=== PATIENT | male | born 1945 | race African-American/Black ===

== ENCOUNTER 2018-07-25 01:17 | Inpatient (IN) | payer MEDICARE ==
[2018-07-25] MEDS ORDERED: Morphine 4 MG/ML VIAL (1 ml) 4 MG/ML VIAL IV ONE (01:33)
--- NOTE | 2018-07-25 01:40 | ED ---
Lower Extremity - HPI Summary HPI Summary: The patient is a 73 y/o M presenting to [facility] arriving by ambulance with a chief complaint of immediate onset pain s/p fall from standing height tonight, causing him to fall on to his right side with pain in the right hip. After falling, he was unable to get up without EMS. The pain is currently rated 6/10 in severity. He denies abd pain, back pain, neck pain, hitting head, and LOC. Hx of COPD. Lives at home with sister and nephew. His nephew was the one who called EMS. - History of Current Complaint Stated Complaint: "R HIP PAIN" PER EMS Time Seen by Provider: 07/25/18 01:26 Hx Obtained From: Patient Mechanism Of Injury: Fall From A Standing Position Onset of Pain: Immediate Onset/Duration: Minutes Severity Initially: Severe Severity Currently: Severe Pain Intensity: 6 Pain Scale Used: 0-10 Numeric Timing: Constant, Lasting Minutes Location: Is Discrete @ - right hip Character Of Pain: Sharp Associated Signs And Symptoms: Positive: Other - NEGATIVE: abd pain, back pain, neck pain, head injury, LOC Aggravating Factor(s): Standing, Ambulation Alleviating Factor(s): Rest Able to Bear Weight: No - Allergies/Home Medications Allergies/Adverse Reactions: Allergies Allergy/AdvReac Type Severity Reaction Status Date / Time No Known Allergies Allergy Verified 07/25/18 04:44 Home Medications: Home Medications Amlodipine Besylate [Norvasc] 10 mg PO DAILY 07/25/18 [History Confirmed ] PMH/Surg Hx/FS Hx/Imm Hx Endocrine/Hematology History: Denies: Hx Anticoagulant Therapy, Hx Blood Disorders, Hx Blood Transfusions, Hx Bone Marrow Disease, Hx Diabetes, Hx Systemic Lupus Erythematosus, Hx Sickle Cell Disease, Hx Thyroid Disease, Hx Anemia, Hx Unexplained Bleeding, Other Endocrine/Hematological Disorders Cardiovascular History: Reports: Hx Hypertension Denies: Hx Congestive Heart Failure, Hx Pacemaker/ICD, Other Cardiovascular Problems/Disorders Respiratory History: Reports: Hx Chronic Obstructive Pulmonary Disease (COPD), Hx Pneumonia, Other Respiratory Problems/Disorders - lung ca Denies: Hx Asthma, Hx Cystic Fibrosis, Hx Lung Cancer, Hx Pleural Effusion, Hx Pulmonary Edema, Hx Pulmonary Embolism, Hx Seasonal Allergies, Hx Sleep Apnea GI History: Denies: Other GI Disorders History: Denies: Hx Dialysis, Hx Renal Disease Musculoskeletal History: Denies: Hx Rheumatoid Arthritis, Other Musculoskeletal History Sensory History: Reports: Hx Contacts or Glasses Denies: Hx Cataracts, Hx Eye Injury, Hx Eye Prosthesis, Hx Glaucoma, Hx Macular Degeneration, Hx Vision Problem, Hx Deafness, Hx Hearing Aid, Hx Hearing Problem, Other Sensory Impairments Opthamlomology History: Reports: Hx Contacts or Glasses Denies: Hx Cataracts, Hx Eye Injury, Hx Eye Prosthesis, Hx Glaucoma, Hx Macular Degeneration, Hx Vision Problem, Other Sensory Impairments Neurological History: Denies: Hx Dementia, Hx Developmental Delay, Hx Headaches, Hx Migraine, Hx Nerve Disease, Hx Seizures, Hx Spinal Cord Injury, Hx Transient Ischemic Attacks (TIA), Other Neuro Impairments/Disorders Psychiatric History: Reports: Hx Post Traumatic Stress Disorder - 1969 episode of PTSD, nothing since Denies: Hx Anxiety, Hx Attention Deficit Hyperactivity Disorder, Hx Eating Disorder, Hx Depression, Hx Panic Disorder, Hx Inpatient Treatment, Hx Community Mental Health Tx, Hx Schizophrenia, Hx Bipolar Disorder, Hx Suicide Attempt, Hx of Violent Episodes Against Others, Hx Substance Abuse, Other Psychiatric Issues/Disorders - Cancer History Cancer Type, Location and Year: lung ca (current) AND COPD Hx Chemotherapy: Yes - about a year ago,radiation in past - Surgical History Surgery Procedure, Year, and Place: POWER PORT Hx Anesthesia Reactions: No Infectious Disease History: Denies: Hx Clostridium Difficile, Hx Hepatitis, Hx Human Immunodeficiency Virus (HIV), Hx Shingles, Hx Tuberculosis - Family History Known Family History: Positive: Hypertension - Social History Alcohol Use: Occasionally Alcohol Amount: 2 drinks/day Hx Substance Use: No Substance Use Type: Reports: None Hx Tobacco Use: Yes Smoking Status (MU): Former Smoker Type: Cigarettes Amount Used/How Often: 1/2 PACK A DAY Length of Time of Smoking/Using Tobacco: 44 years Have You Smoked in the Last Year: Yes Review of Systems Negative: Abdominal Pain Positive: Other - POSITIVE: pain in right hip s/p fall; NEGATIVE: back pain, neck pain Neurological: Other - NEGATIVE: hit head, LOC All Other Systems Reviewed And Are Negative: Yes Physical Exam - Summary Physical Exam Summary: Appearance: Well-appearing, Well-nourished, lying in bed comfortably Skin: Warm, dry, no obvious rash Eyes: sclera anicteric, no conjunctival pallor ENT: mucous membranes moist, pharynx appears normal Neck: Supple, nontender Respiratory: Clear to auscultation, no signs of respiratory distress Cardiovascular: Normal S1, S2. No murmurs. Normal distal pulses in tibial and radial bilaterally. Abdomen: Soft, nontender, normal active bowel sounds present Musculoskeletal: Rarked pain with internal or external rotation of the right hip , Strength/ROM Intact in all other joints Neurological: A&Ox3 but somewhat confused, speech is fluent and appropriate but hard forming thoughts, awake and alert, mentation is normal Psychiatric: affect is normal, does not appear anxious or depressed Triage Information Reviewed: Yes Vital Signs Reviewed: Yes Diagnostics - Laboratory Result Diagrams: 07/25/18 01:41 07/25/18 01:41 Lab Statement: Any lab studies that have been ordered have been reviewed, and results considered in the medical decision making process. - Radiology R Hip/Pelvis XR Radiology Interpretation Completed By: Radiologist Summary of Radiographic Findings: Positive for displaced femoral neck fracture. ED physician has reviewed this radiology report. R Femur XR Radiology Interpretation Completed By: Radiologist Summary of Radiographic Findings: No further fracture of femur compared to R Hip XR. ED physician has reviewed this radiology report. CXR Radiology Interpretation Completed By: Radiologist Summary of Radiographic Findings: No acute process. ED physician has reviewed this report. - EKG 0205 Cardiac Rate: NL - 75 BPM EKG Rhythm: Sinus Rhythm Summary of EKG Findings: NSR at 75 BPM, P waves, QRS complex, and T waves are within normal limits, T waves and intervals are normal, no ischemic changes. This is a normal EKG. Re-Evaluation - Re-Evaluation First Eval Re-Evaluation Time: 04:20 Comment: I spoke with the patient concerning admission for surgery. Lower Extremity Course/Dx - Course Course Of Treatment: The patient is a 73 y/o M presenting to [facility] arriving by ambulance with a chief complaint of immediate onset pain s/p fall from standing height tonight, causing him to fall on to his right side with pain in the right hip. Upon physical exam, the patient exhibits marked pain with internal or external rotation of the right hip, somewhat confused, speech is fluent but hard forming thoughts. In the ED course, the patient was administered Morphine. Blood work reveals MCH of 26, RDW of 16, MPV of 7.3, glucose of 112, and magnesium of 1.7 without any other acute abnormality. UA is normal. EKG is normal. CXR reveals no acute process. R Hip/Pelvis XR reveals displaced femoral neck fracture. R Femur fracture reveals no additional fracture of femur compared to hip XR. He is diagnosed with displaced fracture of right femoral neck. At 0308, I spoke with Dr. Mohan, orthopedics, who suggests admission and follow up with the patient in the morning concerning surgery. At 0315, I spoke with Dr. Ingram, hospitalist, who accepts the patient for admission. The patient agrees with plan and understands the need for admission at this time. - Diagnoses Provider Diagnoses: Displaced fracture of right femoral neck - Physician Notifications Discussed Care Of Patient With: Ollie Stockton - orthopedics Time Discussed With Above Provider: 03:08 Instructed by Provider To: Other - I spoke with Dr. Mohan who suggests admission and follow up with the patient in the morning concerning surgery. At 0315, I spoke with Dr. Ingram, hospitalist, who accepts the patient for admission. Discharge - Sign-Out/Discharge Documenting (check all that apply): Patient Departure - Patient is accepted for admission by Dr. Ingram. Patient Received Moderate/Deep Sedation with Procedure: No - Discharge Plan Condition: Stable Disposition: ADMITTED TO [facility] - Billing Disposition and Condition Condition: STABLE Disposition: Admitted to [facility] - Attestation Statements Document Initiated by Cory: Yes Documenting Scribe: Estephanie Draper Provider For Whom oCry is Documenting (Include Credential): Dr. Simone Plascencia MD Scribe Attestation: Estephanie Cleveland scribed for Dr. Simone Plascencia MD on 07/26/18 at 0450. Scribe Documentation Reviewed: Yes Provider Attestation: The documentation as recorded by the Estephanie carmichael accurately reflects the service I personally performed and the decisions made by me, Dr. Simone Plascencia MD Status of Scribjennifer Document: Viewed
[2018-07-25 01:48] LABS: ABS Eosinophils 0.1 10^3/ul (0-0.6); ABS Lymphocytes 1.5 10^3/ul (1.0-4.8); ABS Monocytes 0.6 10^3/ul (0-0.8); ABS Neutrophils 4.7 10^3/ul (1.5-7.7); Eosinophil % 1.8 %; Hematocrit 43 % (42-52); Lymphocyte % 21.6 %; Mean Corpuscular HGB Conc 32 g/dL (31-36); Mean Corpuscular Hemoglobin 26 pg (27-31); Mean Corpuscular Volume 82 fL (80-94); Mean Platelet Volume 7.3 fL (7.4-10.4); Nucleated Red Blood Cells % 0.1; Platelet Count 259 10^3/uL (150-450); Red Blood Count 5.31 10^6 /uL (4.18-5.48); Red Cell Distribution Width 16 % (10.5-15)
[2018-07-25 02:00] LABS: Activated Partial Thrombo Time 29.2 seconds (26.0-38.0); INR 0.91 (0.82-1.09)
[2018-07-25 02:07] LABS: Albumin 4.1 g/dL (3.2-5.2); Albumin/Globulin Ratio 1.5 (1-3); Calcium 9.1 mg/dL (8.6-10.3); EGFR African American 99.1 (>60); EGFR Non-African American 81.9 (>60); Globulin 2.8 g/dL (2-4); Potassium 3.8 mmol/L (3.5-5.0); Total Bilirubin 0.3 mg/dL (0.2-1.0); Total Protein 6.9 g/dL (6.4-8.9)
[2018-07-25] MEDS ORDERED: Magnesium Hydroxide LIQ* 30 ML UDC PO PRN (04:13)
[2018-07-25] MEDS ORDERED: Al Hydrox/Mg Hydrox/Simet LIQ* 30 ML UDC PO PRN (04:15)
[2018-07-25] MEDS ORDERED: Ondansetron INJ* 2 MG/ML VIAL IV PRN (04:15)
[2018-07-25] MEDS: Morphine INJ* 2 MG/ML 1 ML SYRINGE (TWO MG - NEW SYRINGE VERSION) IV PRN ×6 (04:18→18:57)
[2018-07-25 04:32] LABS: Magnesium 1.7 mg/dL (1.9-2.7)
[2018-07-25 04:45] LABS: Urine Appearance Clear; Urine Bilirubin Negative (Negative); Urine Blood Negative (Negative); Urine Color Straw; Urine Glucose Negative (Negative); Urine Ketones Negative (Negative); Urine Nitrite Negative (Negative); Urine Protein Negative (Negative); Urine Specific Gravity 1.001 (1.010-1.030); Urine Urobilinogen Negative (Negative)
[2018-07-25] MEDS: NS 0.9% 1000 ML** 1,000 ML IV SCH ×2 (06:12→19:48)
[2018-07-25] MEDS: Heparin VIAL(*) 5000 UNITS/ML VIAL (FIVE THOUSAND) SUBCUT SCH ×3 (06:28→21:52)
--- NOTE | 2018-07-25 06:39 | PN ---
Progress Note - Progress Note Date of Service: 07/25/18 Note: Pt seen and examined. Full note dictated on hospital system. Pt oriented to self and place but not year. Confused. Unsure if baseline. No family around. Pt with R hip basicervical femoral neck fracture. Will plan for IMN of R hip when patient medically optimized. NPO for now.
[2018-07-25] MEDS: Polyethylene Glycol 3350* 17 GM PACKET PO SCH ×2 (08:25→09:50)
[2018-07-25] MEDS: Docusate CAP* 100 MG PO SCH ×3 (08:25→21:52)
[2018-07-25] MEDS: Pantoprazole TAB * 40 MG TAB PO SCH ×2 (08:25→09:50)
--- NOTE | 2018-07-25 08:56 | HP ---
CC: Sandy Lockwood MD HISTORY AND PHYSICAL: DATE OF ADMISSION: 07/25/18 TIME OF EVALUATION: 0400. PRIMARY CARE PHYSICIAN: Sandy Lockwood MD CHIEF COMPLAINT: Fall. HISTORY OF PRESENT ILLNESS: This is a 73-year-old male with past medical history of COPD, on 2L who states he does not know what happened, his nephew was there with him, he does not know what happened either. The next scene was he was on the floor with right hip pain. The patient denies any history of cardiac issues. He does have COPD, on 2L. He states he did not have any issues with his respiratory status. He has not needed prednisone. He had a good winter. He has not had any issues with pneumonia. He is able to take up flight of stairs without developing any chest pain or shortness of breath. The patient denies any recent illness, denies any chest pain or shortness of breath , just having a lot of significant pain in the right hip. Otherwise, remaining review of systems is negative. In the emergency room, the patient had labs and imaging and found to have a right femoral neck fracture. He was given 4 mg of morphine and referred to the hospitalist service for further evaluation. PAST MEDICAL HISTORY: 1. COPD, on 2L. 2. Small cell lung carcinoma. Per patient, he is in remission. 3. History of alcohol use. 4. Hypertension. 5. GERD. MEDICATIONS: 1. Pantoprazole 40 mg p.o. daily. 2. Dulera 200/5 two puffs inhaled b.i.d. 3. Aspirin 81 mg daily. 4. Amlodipine 10 mg daily. 5. Albuterol 2 puffs inhaled every 6 hours as needed. 6. Potassium chloride 20 mEq p.o. daily. ALLERGIES: No known drug allergies. FAMILY HISTORY: Reviewed and noncontributory. SOCIAL HISTORY: The patient states he is independent of his ADLs, ambulates independently, lives with his sister. He quit smoking 4 years ago. At that time, he smoked 2 packs per day for unknown quantity. He was a longstanding drinker, but he also stopped a long time ago, per patient unable to quantify as how much. He states his healthcare proxy is his nephew Volodymyr Dixon. Code status is full code. REVIEW OF SYSTEMS: A 14-point review of systems as mentioned in the HPI, otherwise negative. PHYSICAL EXAMINATION GENERAL: In no acute distress. Grimaces in pain every now and then from the right hip. VITAL SIGNS: Temp 98.3, pulse rate 73, respiratory rate 14, oxygen saturation 98% on 2L, blood pressure 120/76. HEENT: Head: Normocephalic. Pupils are equal and reactive. Oropharynx: Mucous membranes are moist. NECK: Supple. No lymphadenopathy. RESPIRATORY: Diminished breath sounds. No wheezes, rhonchi or rales. CARDIAC: Regular rate and rhythm. Soft systolic murmur heard throughout. ABDOMEN: Soft, nontender, and nondistended. EXTREMITIES: The patient with a shortened, externally rotated right lower extremity. +2 DPs bilaterally. No lower extremity edema. NEUROLOGIC: Alert and oriented x3. No gross focal neurologic deficits. LABORATORY DATA: White count 7, hemoglobin 14, hematocrit 43, platelets 259, INR 0.91. Sodium 136, potassium 3.8, chloride 101, bicarb 25, BUN 10, creatinine 0.91, and glucose 112. RADIOGRAPHIC DATA: Right hip femoral neck fracture. EKG shows normal sinus with a rate of 75. Chest x-ray: Hyperinflated lungs, no acute findings. ASSESSMENT: This is a 73-year-old male with a past medical history of chronic obstructive pulmonary disease, on 2L and a history of small cell lung carcinoma who presents to the emergency room for having a fall suffering a right hip fracture. 1. Fall. Assessment: The patient now with a right hip femoral neck fracture. The fall is concerning because the patient does not know what happened. He denies loss of consciousness, but again he does not know what happened. So, I am concerned for a syncopal event, potentially an arrhythmia. His pulmonary status appears to be stable. I do not have any recent PFTs in the computer, but he states he has not had any recent exacerbations requiring any prednisone on recent admissions. Plan: We will admit the patient to short stay in telemetry. We will check a baseline echo to rule out any significant abnormalities. Continue him on his home inhaler regimen, pain management, and bowel regimen. Follow up with Ortho. If his echo is unremarkable, there is no contraindication for proceeding with surgery. Would touch base with oncology to confirm he is in remission. 2. Chronic medical problems. Chronic obstructive pulmonary disease, as mentioned. Continue his inhaler regimen. 3. Gastroesophageal reflux disease. Continue pantoprazole. 4. Hypertension. The patient's blood pressures are soft and low normal. We will hold his amlodipine for now and hold his aspirin as well. 5. FEN: Keep patient n.p.o., IV fluids. 6. DVT prophylaxis: The patient scores high risk. We will place him on heparin subcu t.i.d. 7. Code status: Full code. PATIENT TIME: Greater than 45 minutes was spent doing the history and physical , more than half the time spent in direct patient contact. [id number]/[facility] #: [id number] MICKIE
[2018-07-25] MEDS: Mometasone/Formoter 200/5 MDI INH SCH ×2 (09:50→19:34)
--- NOTE | 2018-07-25 10:00 | ECHO ---
*[facility]* [place] [address] Fax #: [phone] Transthoracic Echocardiogram Patient: Jurgen, Height: 72 in / Joe H 182.9 cm : 1945 Weight: 194.6 lb / Study Date: 07/25/2018 88.5 kg Age: 73 BP: 103 / 65 Gender: M BMI/BSA: 26.4 kg/m^2 HR: 66 bpm / 2.11 m^2 *Hourly Associate: * Kimi Sim [facility] RN *Referring Physician: * Haritha Ingram *Reading Physician: * Sekou Muro MD Indications: Syncope. History: PMH: COPD. Small cell lung cancer. Radiation therapy. Risk factors: Former tobacco use. Hypertension. Conclusions Summary: 1. Left ventricle: Systolic function is normal. The estimated ejection fraction is 60-65%. Wall motion is normal; there are no regional wall motion abnormalities. 2. Mitral valve: There is trace regurgitation. 3. Aortic valve: There is no evidence of stenosis. 4. Tricuspid valve: There is trace regurgitation. 5. Ascending aorta: The ascending aorta is not visualized. 6. Pericardium, extracardiac: There is no pericardial effusion. 7. No change compared to 01/21/14. Study data: Transthoracic echocardiogram. Procedure: Transthoracic echocardiography was performed. The study was technically limited due to poor acoustic window availability, restricted patient mobility, and COPD. Images were obtained from low parasternal and subcostal views. There was no apical window. Complete 2D, spectral Doppler, and color flow Doppler. Patient status: Inpatient. Patient room number: 336. Rhythm: Normal sinus rhythm. Findings Left ventricle: The cavity size is normal. Wall thickness is mildly increased. Systolic function is normal. The estimated ejection fraction is 60-65%. Wall motion is normal; there are no regional wall motion abnormalities. There is no consistent Doppler evidence of clinically significant diastolic dysfunction. Right ventricle: The cavity size is mildly dilated. Systolic function is normal. Left atrium: The atrium is normal in size. Right atrium: The atrium is normal in size. Atrial septum: There is increased thickness of the septum, consistent with lipomatous hypertrophy. The septum appears aneurysmal. Mitral valve: The annulus is mildly calcified. The leaflets are mildly thickened. There is no evidence of stenosis. There is trace regurgitation. Aortic valve: The valve is trileaflet. The leaflets are mildly thickened. There is no evidence of stenosis. There is no regurgitation. Tricuspid valve: The valve is structurally normal. There is no evidence of stenosis. There is trace regurgitation. Unable to estimate right ventricle systolic pressure. Pulmonic valve: Not well visualized. There is no evidence of stenosis. There is no significant regurgitation. Aorta: Aortic root: The aortic root is not dilated. Ascending aorta: The ascending aorta is not visualized. Aortic arch: The aortic arch is not dilated. Pericardium: There is no pericardial effusion. Pulmonary arteries: Not well visualized. Systemic veins: Inferior vena cava: The vessel is normal in size. The respirophasic diameter changes are in the normal range (>= 50%). Measurements Left ventricle Value Ref Aortic valve Value Ref BRIA, LAX 4.2 cm 4.2 - Aba diam, ED 2.0 cm ---- 5.8 Peak v, S 1.45 m/sec ---- ESD, LAX 2.6 cm 2.5 - VTI, S 31.2 cm ---- 4.0 Mean grad, S 6.0 mm Hg ---- FS, LAX 39 % 25 - 43 Peak grad, S 8.0 mm Hg ---- PW, ED, LAX (H) 1.2 cm 0.6 - LVOT/AV, VTI ratio 0.82 ---- 1.0 IVS/PW, ED 0.97 -------- Mitral valve Value Ref E', med aba, TDI 7.2 cm/sec >=7.0 Peak E 0.77 m/sec -- -- E/e', med aba, TDI 11 -------- Peak A 0.76 m/sec ---- Decel time 285 ms ---- LVOT Value Ref Peak grad, D 2.4 mm Hg ---- Peak eddie, S 1.11 m/sec -------- Peak E/A ratio 1 ---- VTI, S 25.5 cm -------- Mean grad, S 3 mm Hg -------- Pulmonic valve Value Ref Peak v, S 1 m/sec ---- Ventricular septum Value Ref Peak grad, S 4.0 mm Hg ---- IVS, ED (H) 1.2 cm 0.6 - 1.0 Aortic root Value Ref Root diam 3.4 cm <4.2 Right ventricle Value Ref BRIA minor ax, A4C (H) 3.8 cm 1.9 - Aortic arch Value Ref mid 3.5 Arch diam 3.3 cm ---- Left atrium Value Ref Decending aorta Value Ref ML dim, A4C 3.6 cm -------- Nicolás peak eddie 0.68 m/sec ---- SI dim, A4C 3.9 cm -------- Inferior vena cava Value Ref Right atrium Value Ref Diam 1.5 cm ---- ML dim, ES, A4C 3.1 cm 2.6 - 4.4 SI dim, ES, A4C 3.6 cm 3.4 - 5.3 Estimated RAP 3 mm Hg -------- Legend: (L) and (H) debbie values outside specified reference range. Prepared and electronically signed by Sekou Muro MD 07/25/2018 09:59
--- NOTE | 2018-07-25 10:54 | HP ---
HISTORY AND PHYSICAL: DATE OF ADMISSION: 07/25/18 CHIEF COMPLAINT: Right hip pain. HISTORY OF PRESENT ILLNESS: Briefly, Ms. Seaman is a 73-year-old male who lives with his sister and nephew who presents after a fall. He does not recall how he did the fall, but he had pain and informed me was unable to weight bear. He states that he usually does not use any assistive devices while walking. He is retired and does not currently work any more. He also has a history of lung cancer, although he is not sure if he has completed treatment or not. He could have had radiation in the last few weeks, but he cannot remember. He has a history of COPD, is on O2. He has some confusion, I am not sure if this is baseline. He denies any fevers or chills, does not recall how he felt. He says possibly mechanical, possibly not and seems to be confused at this exam. There is no family at his bedside. PAST MEDICAL HISTORY: 1. History of small cell lung cancer, followed by Dr. Seo and Dr. Lemus. 2. COPD, on O2. 3. History of urinary incontinence, hypertension, and constipation. PAST SURGICAL HISTORY: He has had surgery in his lungs, but he denies any other surgery. MEDICATIONS: On admission are: 1. Tylenol. 2. Maalox. 3. Ventolin. 4. Valium. 5. Colace. 6. Heparin. 7. Dulera. 8. Morphine. 9. Zofran. 10. Percocet. 11. Protonix. 12. MiraLAX. 13. Sodium chloride. 14. O2. ALLERGIES: None. FAMILY HISTORY: Mother at 77 from heart failure. Father of unknown causes. Maternal grandmother from lung and breast cancer. SOCIAL HISTORY: Lives with his nephew and sister who helps out with his care. 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 He has no children, quit smoking about 5 years ago and smoked 2 packs per day for 50 years. He does drink a couple of beers, but not every night. His healthcare proxy is his nephew. REVIEW OF SYSTEMS: Significant for fall, some confusion; otherwise, denies fever, chills, numbness, tingling, any other injury. Remainder is not obtainable. PHYSICAL EXAMINATION GENERAL: He is in no acute distress. He is lying comfortably on the bed. He is conversive, but he is little bit sleepy. He did just get pain medication. He is able to move the upper extremities without difficulty. Oriented to self and place. Not to year VITAL SIGNS: Temperature is 97.7, pulse rate 67, respiratory rate 20, oxygen 91 on 2.5 L, and blood pressure 103/65. HEENT: EOMI. CHEST: Clear to auscultation. HEART: Regular rate and rhythm. ABDOMEN: Soft, nontender. EXTREMITIES: Examination of right hip demonstrates the skin is intact. He has no calf pain. He is able to dorsi and plantarflex his ankle, flex and extend his toes. He is sensate to light touch about the first dorsal web space, medial , lateral, dorsal, and plantar foot. 2+ PT and DP pulse. DIAGNOSTIC STUDIES/DATA REVIEW: X-rays were reviewed and demonstrate a basicervical femoral neck fracture, and full length films reveal no further fractures, no obvious masses. Labs: White blood cell count is 7.0, hematocrit of 43, and platelet count 259. INR is 0.91. Sodium 136, potassium 3.8, chloride 101, carbon dioxide 25, BUN is 10, creatinine is 0.91, glucose 112, troponin is 0. Urine is also negative. ASSESSMENT AND PLAN: He has some confusion and as we do not have the full story and he is going to be worked up by the medicine team, who has agreed to admit him. I spoke to Dr. Eaton and Dr. Ingram and he will be getting a CT scan of his head because of the unwitnessed fall and confusion and he will be getting an echo. We will keep him n.p.o., plan for surgery which would be right hip intervention right now. I will discuss this with his family. [id number]/[facility] #: [id number] MICKIE
[2018-07-25] MEDS ORDERED: Buffered Lidocaine 1% SYRIN* 1 ML/SYRINGE INTRADERM ONE (11:10)
[2018-07-25] MEDS: Diazepam TAB(*) 5 MG PO PRN (11:52)
--- NOTE | 2018-07-25 12:00 | PN ---
Progress Note - Progress Note Date of Service: 07/25/18 Note: I spoke with the patient who is alert and oriented to self and place, though with difficulty recalling events around the fall as well as naming 2016 as the year. He asks me to contact his nephew who he lives with, Volodymyr Dixon, to provide consent should patient be unable. I spoke with Volodymyr who is aware of Joe's hip fracture and agrees to provide consent for surgical fixation. His cellphone number is [phone]. His home phone number is [phone]. Anticipate Right hip IM nail tomorrow with Dr Stockton.
--- NOTE | 2018-07-25 18:06 | PN ---
Subjective Date of Service: 07/25/18 Interval History: HOSPITALIST PROGRESS NOTE Patient seen and examined at bedside. Care reviewed and d/w Milady Antoine RN. He c/o hip pain, but otherwise feels well. Does not remember how he fell. Denies CP, palpitations, dyspnea. Was described as confused, but able to answer questions, although does not remember all the details; orientation was pretty good. Family History: Unchanged from Admission Social History: Unchanged from Admission Past Medical History: Unchanged from Admission Objective Active Medications: Acetaminophen (Tylenol Tab*) 650 mg PO Q4H PRN PRN Reason: FEVER/PAIN Al Hydrox/Mg Hydrox/Simethicone (Maalox Plus*) 30 ml PO Q6H PRN PRN Reason: INDIGESTION Albuterol (Ventolin Hfa Inhaler*) 2 puff INH Q6H PRN PRN Reason: SOB/WHEEZING Diazepam (Valium Tab(*)) 5 mg PO Q8H PRN PRN Reason: spasms Last Admin: 07/25/18 11:52 Dose: 5 mg Docusate Sodium (Colace Cap*) 100 mg PO BID [facility] Last Admin: 07/25/18 09:50 Dose: 100 mg Heparin Sodium (Porcine) (Heparin Vial(*)) 5,000 units SUBCUT Q8HR [facility] Last Admin: 07/25/18 13:51 Dose: 5,000 units Sodium Chloride (Ns 0.9% 1000 Ml) 1,000 mls @ 75 mls/hr IV PER RATE [facility] Last Admin: 07/25/18 06:12 Dose: 75 mls/hr Lactated Ringer's (Lactated Ringers 1000 Ml Bag*) 1,000 mls @ 125 mls/hr IV PER RATE [facility] Magnesium Hydroxide (Milk Of Magnesia Liq*) 30 ml PO Q6H PRN PRN Reason: CONSTIPATION Mometasone Furoate/Formoterol Fumar (Dulera 200/5 Mdi*) 2 puff INH BID [facility] Last Admin: 07/25/18 09:50 Dose: 2 puff Morphine Sulfate (Morphine Inj (Syringe))*) 2 mg IV Q2H PRN PRN Reason: PAIN Last Admin: 07/25/18 13:51 Dose: 2 mg Ondansetron HCl (Zofran Inj*) 4 mg IV Q4H PRN PRN Reason: NAUSEA/VOMITING Oxycodone/Acetaminophen (Percocet 5/325 Tab*) 1 tab PO Q4H PRN PRN Reason: Pain Pantoprazole Sodium (Protonix Tab*) 40 mg PO DAILY [facility] Last Admin: 07/25/18 09:50 Dose: 40 mg Polyethylene Glycol/Electrolytes (Miralax*) 17 gm PO DAILY [facility] Last Admin: 07/25/18 09:50 Dose: 17 gm Vital Signs - 8 hr 07/25/18 07/25/18 07/25/18 11:45 11:52 12:40 Temperature 98.2 F Pulse Rate 80 Respiratory 16 20 16 Rate Blood Pressure 143/67 (mmHg) O2 Sat by Pulse 93 Oximetry 07/25/18 07/25/18 07/25/18 13:48 13:51 15:57 Temperature 99.2 F Pulse Rate 71 Respiratory 16 18 16 Rate Blood Pressure 149/87 (mmHg) O2 Sat by Pulse 95 Oximetry Oxygen Devices in Use Now: Nasal Cannula - 2.5 liters Appearance: Pleasant elderly gentleman lying in bed in NAD. Eyes: No Scleral Icterus Ears/Nose/Mouth/Throat: Mucous Membranes Moist Neck: Trachea Midline Respiratory: Symmetrical Chest Expansion and Respiratory Effort, Clear to Auscultation Cardiovascular: RRR - Normal S1 and S2 Extremities: - - RLE is shortened and externally rotated, no calf tenderness Neurological: Alert and Oriented x 3, NL Muscle Strength and Tone - Oriented to self, place, time (July 2018), president Result Diagrams: 07/25/18 01:41 07/25/18 01:41 Assess/Plan/Problems-Billing Assessment: Mr Seaman is a 73yo M with PMH of COPD on home O2, HTN, GERD, Small cell lung carcinoma (T1N0M0) s/p chemo/RT in 2013, prior h/o alcohol abuse; who presented to ED after a fall, found to have intertrochanteric right femur fracture. - Patient Problems (1) Right femoral fracture Comment: - Ortho input appreciated - plan for intramedullary nail in AM. - Has no c/o chest pain, palpitations, or worsening of baseline dyspnea. - EKG shows no ischemic changes, no significant arrhythmias on Telemetry, echo shows EF 60-65% with normal wall motion, no significant valvular disease. - CT brain showed no acute intracranial changes. He appears to have some memory issues, but he's not confused at this time. - RCRI is 0 predicting a 0.4-0.5% risk fo cardiac complications. - Patient is optimized for proposed procedure. - Continue pain management. (2) Small cell lung cancer Comment: - As per Oncology records, patient has h/o small cell lung carcinoma ( T1N0M0) treated with cis/etoposide and xRT September 2013, with no evidence of disease. (3) COPD (chronic obstructive pulmonary disease) Comment: - No signs of exacerbation at this time. - Good SO2 on his usual home O2 flow. - Continue Albuterol and Dulera. (4) DVT prophylaxis Comment: - SQ heparin. (5) Full code status Status and Disposition: Inpatient.
[2018-07-26] MEDS: Morphine INJ* 2 MG/ML 1 ML SYRINGE (TWO MG - NEW SYRINGE VERSION) IV PRN ×2 (00:14→05:07)
[2018-07-26] MEDS: Lactated Ringers 1000 ML Bag* 1,000 ML IV SCH ×3 (07:30→22:09)
[2018-07-26] MEDS: Docusate CAP* 100 MG PO SCH ×2 (07:37→20:55)
[2018-07-26] MEDS: Pantoprazole TAB * 40 MG TAB PO SCH (07:37)
[2018-07-26] MEDS: Polyethylene Glycol 3350* 17 GM PACKET PO SCH (07:37)
--- NOTE | 2018-07-26 07:43 | PN ---
Progress Note - Progress Note Date of Service: 07/26/18 Note: H and P update Pt seen and examined. Lying in bed. pain controlled. Denies fevers or chills. no numbness or tingling. no longer confused Temp Pulse Resp BP Pulse Ox 99.5 F 79 16 131/82 92 07/26/18 03:34 07/26/18 03:34 07/26/18 06:07 07/26/18 03:34 07/26/18 03:34 NAD. comfortable. RLE: skin intact. silt grossly distally. brisk cap refill. flex/ext toes A/P 73 yo M with R hip basicervical fx NPO for IMN of R hip today optimized per medicine. Abx vision care associate to OR NPO bed rest plan is for R hip intramedullary nail
[2018-07-26 08:23] LABS: ABS Eosinophils 0.1 10^3/ul (0-0.6); ABS Lymphocytes 1.1 10^3/ul (1.0-4.8); ABS Monocytes 0.9 10^3/ul (0-0.8); ABS Neutrophils 6.9 10^3/ul (1.5-7.7); Eosinophil % 1.4 %; Hematocrit 42 % (42-52); Hemoglobin 13.7 g/dL (14.0-18.0); Mean Corpuscular HGB Conc 32 g/dL (31-36); Mean Corpuscular Hemoglobin 26 pg (27-31); Mean Corpuscular Volume 82 fL (80-94); Mean Platelet Volume 7.8 fL (7.4-10.4); Nucleated Red Blood Cells % 0.1; Platelet Count 229 10^3/uL (150-450); Red Blood Count 5.19 10^6 /uL (4.18-5.48); Red Cell Distribution Width 16 % (10.5-15)
[2018-07-26 08:38] LABS: BUN/Creatinine Ratio 9.3 (8-20); Calcium 8.5 mg/dL (8.6-10.3); EGFR African American 123.9 (>60); EGFR Non-African American 102.4 (>60); Potassium 3.5 mmol/L (3.5-5.0)
[2018-07-26] MEDS: Mometasone/Formoter 200/5 MDI INH SCH ×2 (09:39→19:23)
[2018-07-26] MEDS ORDERED: Midazolam* 1 MG/ML 5 ML VIAL (5 MG) ONE (09:58)
[2018-07-26] MEDS ORDERED: fentaNYL* 50 MCG/ML 2 ML VIAL (100 MCG VIAL) ONE (09:58)
[2018-07-26] MEDS ORDERED: ceFAZolin 2 GM PREMIX in ORs 2 GM/50 ML BAG ONE (10:46)
[2018-07-26] MEDS ORDERED: Bupivacaine 0.5%* 50 ML VIAL ONE (10:47)
[2018-07-26] MEDS ORDERED: Famotidine IV* 10 MG/ML 2 ML (20 mg) ONE (10:54)
[2018-07-26] MEDS ORDERED: Midazolam* 1 MG/ML 2 ML VIAL (2 MG) ONE (12:09)
[2018-07-26] MEDS ORDERED: Phenylephrine 40 MCG/ML SYRINGE ONE (12:14)
[2018-07-26] MEDS ORDERED: oxyCODONE TAB* 5 MG TAB PO PRN (13:50)
[2018-07-26] MEDS ORDERED: Naloxone* 0.4 MG/ML 1 ML VIAL IV PRN (13:50)
[2018-07-26] MEDS ORDERED: HYDROmorphone INJ1* 1 MG/ML SYRINGE IV PRN (13:50)
[2018-07-26] MEDS ORDERED: Acetaminophen IV 1GM/100ML * 1,000 MG/100 ML VIAL IVPB ONE (13:50)
[2018-07-26] MEDS ORDERED: DiMENhydriNATE IV* 50 MG/ML VIAL IV PUSH PRN (13:50)
[2018-07-26] MEDS ORDERED: EPHEDrine (Pressors)* 50 MG/ML VIAL ONE (13:57)
[2018-07-26] MEDS ORDERED: Propofol* 10 MG/ML 20 ML BTL ONE (13:57)
[2018-07-26] MEDS ORDERED: Ondansetron INJ* 2 MG/ML VIAL ONE (13:57)
[2018-07-26] MEDS ORDERED: Ketorolac INJ* 30 MG/ML 1 ML VIAL ONE (13:57)
[2018-07-26] MEDS ORDERED: Phenylephrine 10 MG/ML VIAL* 1 ML VIAL ONE (13:57)
[2018-07-26] MEDS ORDERED: Dexamethasone IV* 4 MG/ML 1 ML (4 MG) ONE (13:57)
--- NOTE | 2018-07-26 14:36 | PN ---
Subjective Date of Service: 07/26/18 Interval History: HOSPITALIST PROGRESS NOTE Patient seen and examined at bedside. Care reviewed and d/w Augusto Cheek RN. He feels well today, pain is well controlled. Family History: Unchanged from Admission Social History: Unchanged from Admission Past Medical History: Unchanged from Admission Objective Active Medications: Acetaminophen (Tylenol Tab*) 650 mg PO Q4H PRN PRN Reason: FEVER/PAIN Al Hydrox/Mg Hydrox/Simethicone (Maalox Plus*) 30 ml PO Q6H PRN PRN Reason: INDIGESTION Albuterol (Ventolin Hfa Inhaler*) 2 puff INH Q6H PRN PRN Reason: SOB/WHEEZING Diazepam (Valium Tab(*)) 5 mg PO Q8H PRN PRN Reason: spasms Last Admin: 07/25/18 11:52 Dose: 5 mg Dimenhydrinate (Dramamine Iv*) 12.5 mg IV PUSH ONCE PRN PRN Reason: NAUSEA/VOMITING Docusate Sodium (Colace Cap*) 100 mg PO BID [facility] Last Admin: 07/26/18 07:37 Dose: Not Given Hydromorphone HCl (Dilaudid Inj1s*) 0.2 mg IV Q5M PRN PRN Reason: PAIN - SEVERE Lactated Ringer's (Lactated Ringers 1000 Ml Bag*) 1,000 mls @ 125 mls/hr IV PER RATE [facility] Last Admin: 07/26/18 10:57 Dose: 125 mls/hr Acetaminophen (Ofirmev*) 1,000 mg in 100 mls @ 400 mls/hr IVPB ONCE ONE Stop: 07/26/18 14:04 Magnesium Hydroxide (Milk Of Magnesia Liq*) 30 ml PO Q6H PRN PRN Reason: CONSTIPATION Mometasone Furoate/Formoterol Fumar (Dulera 200/5 Mdi*) 2 puff INH BID [facility] Last Admin: 07/26/18 09:39 Dose: Not Given Morphine Sulfate (Morphine Inj (Syringe))*) 2 mg IV Q2H PRN PRN Reason: PAIN Last Admin: 07/26/18 05:07 Dose: 2 mg Naloxone HCl (Narcan*) 0.08 mg IV Q2M PRN PRN Reason: severe induced resp depression Ondansetron HCl (Zofran Inj*) 4 mg IV Q4H PRN PRN Reason: NAUSEA/VOMITING Oxycodone HCl (Roxycodone Tab*) 5 mg PO ONCE PRN PRN Reason: PAIN - MODERATE Oxycodone/Acetaminophen (Percocet 5/325 Tab*) 1 tab PO Q4H PRN PRN Reason: Pain Pantoprazole Sodium (Protonix Tab*) 40 mg PO DAILY [facility] Last Admin: 07/26/18 07:37 Dose: Not Given Polyethylene Glycol/Electrolytes (Miralax*) 17 gm PO DAILY [facility] Last Admin: 07/26/18 07:37 Dose: Not Given Vital Signs - 8 hr 07/26/18 07/26/18 07/26/18 07:45 08:00 10:24 Temperature 98.5 F 99.5 F Pulse Rate 73 75 Respiratory 16 16 17 Rate Blood Pressure 151/87 142/84 (mmHg) O2 Sat by Pulse 97 93 Oximetry Oxygen Devices in Use Now: Nasal Cannula Appearance: Pleasant elderly gentleman lying in bed in [facility]. Eyes: No Scleral Icterus Ears/Nose/Mouth/Throat: Mucous Membranes Moist Neck: Trachea Midline Respiratory: Symmetrical Chest Expansion and Respiratory Effort, Clear to Auscultation Cardiovascular: RRR - Normal S1 and S2 Abdominal: NL Sounds; No Tenderness; No Distention - RLE externally rotated, good pulses, sensation intact Neurological: Alert and Oriented x 3, NL Muscle Strength and Tone Result Diagrams: 07/26/18 06:11 07/26/18 06:11 Assess/Plan/Problems-Billing Assessment: Mr Seaman is a 73yo M with PMH of COPD on home O2, HTN, GERD, Small cell lung carcinoma (T1N0M0) s/p chemo/RT in 2013, prior h/o alcohol abuse; who presented to ED after a fall, found to have intertrochanteric right femur fracture. - Patient Problems (1) Right femoral fracture Comment: - Ortho input appreciated - plan for intramedullary nail today. - Has no c/o chest pain, palpitations, or worsening of baseline dyspnea. - EKG shows no ischemic changes, no significant arrhythmias on Telemetry, echo shows EF 60-65% with normal wall motion, no significant valvular disease. - CT brain showed no acute intracranial changes. He appears to have some memory issues, but he's not confused at this time. - RCRI is 0 predicting a 0.4-0.5% risk fo cardiac complications. - Patient is optimized for proposed procedure. - Continue pain management. - Will benefit of rehab after surgery - PMRU consult. (2) Small cell lung cancer Comment: - As per Oncology records, patient has h/o small cell lung carcinoma ( T1N0M0) treated with cis/etoposide and xRT September 2013, with no evidence of disease. (3) COPD (chronic obstructive pulmonary disease) Comment: - No signs of exacerbation at this time. - Good SO2 on his usual home O2 flow. - Continue Albuterol and Dulera. (4) DVT prophylaxis Comment: - SQ heparin. (5) Full code status Status and Disposition: Inpatient.
[2018-07-26] MEDS ORDERED: Polyethylene Glycol 3350* 17 GM PACKET PO PRN (15:42)
[2018-07-26] MEDS ORDERED: Senna TAB PO PRN (15:42)
[2018-07-26] MEDS ORDERED: Magnesium Hydroxide LIQ* 30 ML UDC PO PRN (15:42)
[2018-07-26] MEDS: ceFAZolin 1 GM* X 3 DOSES POST-OP Q8H (AddVan) IVPB SCH ×2 (20:54)
[2018-07-26] MEDS: Magnesium Hydroxide LIQ* 30 ML UDC PO SCH (20:55)
[2018-07-27] MEDS: ceFAZolin 1 GM* X 3 DOSES POST-OP Q8H (AddVan) IVPB SCH ×4 (03:32→12:20)
[2018-07-27] MEDS: Lactated Ringers 1000 ML Bag* 1,000 ML IV SCH (05:57)
[2018-07-27 06:17] LABS: ABS Monocytes 1.1 10^3/ul (0-0.8); ABS Neutrophils 9.5 10^3/ul (1.5-7.7); Eosinophil % 0.1 %; Hematocrit 35 % (42-52); Hemoglobin 11.5 g/dL (14.0-18.0); Lymphocyte % 8.3 %; Mean Corpuscular HGB Conc 33 g/dL (31-36); Mean Corpuscular Hemoglobin 27 pg (27-31); Mean Corpuscular Volume 81 fL (80-94); Mean Platelet Volume 7.3 fL (7.4-10.4); Nucleated Red Blood Cells % 0.1; Platelet Count 207 10^3/uL (150-450); Red Blood Count 4.31 10^6 /uL (4.18-5.48); Red Cell Distribution Width 16 % (10.5-15); White Blood Count 11.7 10^3/uL (3.5-10.8)
[2018-07-27 06:35] LABS: BUN/Creatinine Ratio 13.7 (8-20); Calcium 8.4 mg/dL (8.6-10.3); EGFR African American 127.8 (>60); EGFR Non-African American 105.6 (>60)
--- NOTE | 2018-07-27 06:42 | OP ---
DATE OF OPERATION: 07/26/18 - ROOM #336 DATE OF : 47 SURGEON: Ollie Stockton MD OFFICE ADMINISTRATIVE ASSISTANT: TRISTAN Kemp. An sales operations assistant was needed for the entirety of the case to help with positioning, retraction, and utilized throughout all portions of the case. ANESTHESIOLOGIST: Dr. Moncada. ANESTHESIA: Spinal with local MAC. COMPLICATIONS: None. ESTIMATED BLOOD LOSS: 100 cc. PRE-OP DIAGNOSIS: Right basicervical femoral neck fracture. POST-OP DIAGNOSIS: Right basicervical femoral neck fracture. OPERATIVE PROCEDURE: Right hip trochanteric femoral nail. IMPLANTS: Synthes TFNA size 12 x 420 mm with 105 threaded screw was used to compress and a distal interlocking bolt of the appropriate length. SPECIMENS: There were hardly any reamings because of the capaciousness of the canal. There was no evidence of any abnormal lesions or bone quality issue. No specimen was sent. INDICATIONS: Joe Seaman is a 73-year-old free ambulator who fell at his home yesterday morning on 07/25/18, early in the morning. He was brought to the ER by ambulance. He was diagnosed with a basicervical femoral neck fracture. He is in significant pain. After extensive discussion of risks and benefits of surgery, versus nonoperative treatment and discussion with his health care proxy which is his nephew, and optimization by Medicine including an echo and CT scan of his head, he was optimized for surgery. Risks and benefits were discussed in length include but not limited to bleeding; infection ; damage to nerves, vessels, surrounding structures; wound nonhealing; persistent pain; need for further surgery; scaring; stiffness; incomplete relief of symptoms; and risks of anesthesia. DESCRIPTION OF PROCEDURE: The patient was greeted in the preoperative area by the attending surgeon. Correct extremity was marked and consent was confirmed. Volodymyr Dixon his nephew was then called for verbal consent and the history reviewed with him as well. The patient was then brought back to the operating suite and was placed in a supine position on his table. He then underwent spinal anesthesia with Dr. Moncada. After satisfactory spinal was placed the patient was brought on to the fracture table where a well padded peroneal post was placed and he was approximately positioned on the traction table with the operative extremity in the traction and the nonoperative in the well leg ricardo. The right arm was draped across his chest. After the patient was properly secured and warmed, an SCD was placed. X-rays were used to help facilitate closed reduction. The length was appropriate but there was still a gap inferiorly. The decision was made that this was a basicervical fracture and this is to be fixed with a compression device. An exam of the knee demonstrated stability varus and valgus stress. After appropriate surgical pause indicating side, site, procedure, and administration of antibiotics. A 10 blade was used to make an incision proximal to the trochanter. The fascia was incised. The guidewire was then placed in the tip of trochanter. This was checked in AP and lateral views and appropriate alignment was identified. A 60-mm trial nail was then reamed. The ball-tip guidewire was then placed in the shaft of the femur. Once this was confirmed distally, the length was then measured to be about 435 mm. Decision was made to proceed with a 420. Reaming then began, beginning with a size 8 and then increased by 1 and the capacious canal had minimal chatter. This was overreamed by 2 sizes. A size was 12 was chosen and this was prepared in the back table and then impacted into position. Once this was appropriately seated , the jig was then attached and the proximal interlocking bolts of the femoral neck were then placed. Once this was appropriately positioned, it was measured to be about 110, a 105 was chosen and the drill stock was then used to drill the length of one of the interlocking screw. Then the final screw was screwed into position with excellent purchase. The nail was then secured proximally and then statically locked and then a compression device was placed on the femoral neck interlocking bolt which helped to reduce compression and I liked the fixation of the head and neck. Once these were secured proximally, distally, appropriate sets used to put a single interlocking bolt through the static hole. Sutures were placed. Final images were obtained. The wound was copiously irrigated with sterile saline. The wounds were closed in layers, closing the fascial layer with 0- Vicryl, the subcu with 3-0 Monocryl. The wound was injected with 0.2% ropivacaine. Sterile dressings were applied. The patient was then awoken from anesthesia and transferred to PACU in stable condition. POSTOPERATIVE PLAN: He will be touch-down weightbearing. Dressing change on postop day 2. Postoperative antibiotics for 24 hours. DVT prophylaxis with Lovenox for 6 weeks. Pain will be controlled. He will work with Physical Therapy beginning postop day 1. I will follow the patient in the hospital and then see him back in around 2 weeks postop. [id number]/[facility] #: [id number] MTDD
[2018-07-27] MEDS: Magnesium Hydroxide LIQ* 30 ML UDC PO SCH ×2 (08:41→21:07)
[2018-07-27] MEDS: Docusate CAP* 100 MG PO SCH ×2 (08:41→21:07)
[2018-07-27] MEDS: Polyethylene Glycol 3350* 17 GM PACKET PO SCH (08:41)
[2018-07-27] MEDS: Pantoprazole TAB * 40 MG TAB PO SCH (08:41)
[2018-07-27] MEDS: Acetaminophen TAB* 325 MG PO PRN ×2 (08:41→12:29)
[2018-07-27] MEDS: Diazepam TAB(*) 5 MG PO PRN (08:43)
[2018-07-27 09:46] LABS: Magnesium 1.8 mg/dL (1.9-2.7)
[2018-07-27] MEDS: Mometasone/Formoter 200/5 MDI INH SCH ×2 (10:59→20:11)
[2018-07-27] MEDS: Enoxaparin(*) 40 MG/0.4 ML SYR SUBCUT SCH (12:20)
--- NOTE | 2018-07-27 14:28 | PN ---
Progress Note - Progress Note Date of Service: 07/27/18 SOAP: Subjective: []Pt seen at bedside. He feels well, hip pain is well controlled. Denies CP, SOB , dizziness, nausea. Is aware that he does not remember having surgery yesterday but does not feel confused today. Objective: []General: NAD, A&Ox3, appropriate conversation RLE: Right hip dressing CDI, thigh soft, DF/PF intact, DP2+, sensation intact to light touch distally Calves supple and nontender without erythema, edema or palpable cords Assessment: [] Right basicervical femoral neck fracture POD 1 sp Right hip trochanteric femoral nail. Plan: []TTWB lovenox x 6 weeks post op First dressing change tomorrow Needs RAMIRO, CM aware and sending referrals for placement Vital Signs Temp 98.5 F 07/27/18 11:42 Pulse 78 07/27/18 11:42 Resp 16 07/27/18 12:20 BP 133/74 07/27/18 11:42 Pulse Ox 94 07/27/18 11:42 Intake & Output 07/26/18 07/27/18 07/27/18 18:59 06:59 18:59 Intake Total 3148 2533 1020 Output Total 1200 1825 1450 Balance 1948 708 -430 Weight 194 lb Intake: IV Fluids 3028 1693 LR 1900 1693 NS (0.9%) 1128 IVPB 100 ABX - CEFAZOLIN 100 Oral 883 050 0286 Output: Reyes 900 1825 1450 Estimated Blood Loss 300 Other: # Bowel Movements 0 Laboratory Last Values WBC 11.7 10^3/uL (3.5-10.8) H 07/27/18 06:09 RBC 4.31 10^6 /uL (4.18-5.48) 07/27/18 06:09 Hgb 11.5 g/dL (14.0-18.0) L 07/27/18 06:09 Hct 35 % (42-52) L 07/27/18 06:09 MCV 81 fL (80-94) 07/27/18 06:09 MCH 27 pg (27-31) 07/27/18 06:09 MCHC 33 g/dL (31-36) 07/27/18 06:09 RDW 16 % (10.5-15) H 07/27/18 06:09 Plt Count 207 10^3/uL (150-450) 07/27/18 06:09 MPV 7.3 fL (7.4-10.4) L 07/27/18 06:09 Neut % (Auto) 81.6 % 07/27/18 06:09 Lymph % (Auto) 8.3 % 07/27/18 06:09 [place] % (Auto) 9.8 % 07/27/18 06:09 Eos % (Auto) 0.1 % 07/27/18 06:09 Baso % (Auto) 0.2 % 07/27/18 06:09 Absolute Neuts (auto) 9.5 10^3/ul (1.5-7.7) H 07/27/18 06:09 Absolute Lymphs (auto) 1.0 10^3/ul (1.0-4.8) 07/27/18 06:09 Absolute Monos (auto) 1.1 10^3/ul (0-0.8) H 07/27/18 06:09 Absolute Eos (auto) 0.0 10^3/ul (0-0.6) 07/27/18 06:09 Absolute Basos (auto) 0.0 10^3/ul (0-0.2) 07/27/18 06:09 Absolute Nucleated RBC 0.0 10^3/ul 07/27/18 06:09 Nucleated RBC % 0.1 07/27/18 06:09 INR (Anticoag Therapy) 1.00 (0.82-1.09) 07/26/18 06:11 APTT 29.2 seconds (26.0-38.0) 07/25/18 01:41 Sodium 136 mmol/L (135-145) 07/27/18 06:09 Potassium 4.0 mmol/L (3.5-5.0) 07/27/18 06:09 Chloride 102 mmol/L (101-111) 07/27/18 06:09 Carbon Dioxide 30 mmol/L (22-32) 07/27/18 06:09 Anion Gap 4 mmol/L (2-11) 07/27/18 06:09 BUN 10 mg/dL (6-24) 07/27/18 06:09 Creatinine 0.73 mg/dL (0.67-1.17) 07/27/18 06:09 Est GFR ( Amer) 127.8 (>60) 07/27/18 06:09 Est GFR (Non-Af Amer) 105.6 (>60) 07/27/18 06:09 BUN/Creatinine Ratio 13.7 (8-20) 07/27/18 06:09 Glucose 142 mg/dL (70-100) H 07/27/18 06:09 Lactic Acid 2.0 mmol/L (0.5-2.0) 07/25/18 01:41 Calcium 8.4 mg/dL (8.6-10.3) L 07/27/18 06:09 Magnesium 1.8 mg/dL (1.9-2.7) L 07/27/18 06:09 Total Bilirubin 0.30 mg/dL (0.2-1.0) 07/25/18 01:41 AST 20 U/L (13-39) 07/25/18 01:41 ALT 17 U/L (7-52) 07/25/18 01:41 Alkaline Phosphatase 69 U/L (34-104) 07/25/18 01:41 Troponin I 0.00 ng/mL (<0.04) 07/25/18 01:41 Total Protein 6.9 g/dL (6.4-8.9) 07/25/18 01:41 Albumin 4.1 g/dL (3.2-5.2) 07/25/18 01:41 Globulin 2.8 g/dL (2-4) 07/25/18 01:41 Albumin/Globulin Ratio 1.5 (1-3) 07/25/18 01:41 25-OH Vitamin D Total 9.7 ng/mL (20-50) L 07/25/18 08:16 Urine Color Straw 07/25/18 04:31 Urine Appearance Clear 07/25/18 04:31 Urine pH 6.0 (5-9) 07/25/18 04:31 Ur Specific [place] 1.001 (1.010-1.030) L 07/25/18 04:31 Urine Protein Negative (Negative) 07/25/18 04:31 Urine Ketones Negative (Negative) 07/25/18 04:31 Urine Blood Negative (Negative) 07/25/18 04:31 Urine Nitrate Negative (Negative) 07/25/18 04:31 Urine Bilirubin Negative (Negative) 07/25/18 04:31 Urine Urobilinogen Negative (Negative) 07/25/18 04:31 Ur Leukocyte Esterase Negative (Negative) 07/25/18 04:31 Urine Glucose Negative (Negative) 07/25/18 04:31 Blood Type A Positive 07/25/18 01:41 Antibody Screen Negative 07/25/18 01:41
[2018-07-27] MEDS: oxyCODONE/Acetamin 5/325 MG* TAB PO PRN ×2 (15:48→23:51)
--- NOTE | 2018-07-27 16:19 | PN ---
Subjective Date of Service: 07/27/18 Interval History: Pt feels well, has not walked yet with pt Family History: Unchanged from Admission Social History: Unchanged from Admission Past Medical History: Unchanged from Admission Objective Active Medications: Acetaminophen (Tylenol Tab*) 650 mg PO Q4H PRN PRN Reason: FEVER/PAIN Last Admin: 07/27/18 12:29 Dose: 650 mg Al Hydrox/Mg Hydrox/Simethicone (Maalox Plus*) 30 ml PO Q6H PRN PRN Reason: INDIGESTION Albuterol (Ventolin Hfa Inhaler*) 2 puff INH Q6H PRN PRN Reason: SOB/WHEEZING Diazepam (Valium Tab(*)) 5 mg PO Q8H PRN PRN Reason: spasms Last Admin: 07/27/18 08:43 Dose: 5 mg Docusate Sodium (Colace Cap*) 100 mg PO BID [facility] Last Admin: 07/27/18 08:41 Dose: 100 mg Enoxaparin Sodium (Lovenox(*)) 40 mg SUBCUT DAILY@1200 [facility] Last Admin: 07/27/18 12:20 Dose: 40 mg Lactated Ringer's (Lactated Ringers 1000 Ml Bag*) 1,000 mls @ 125 mls/hr IV PER RATE [facility] Last Admin: 07/27/18 05:57 Dose: 125 mls/hr Magnesium Hydroxide (Milk Of Magnesia Liq*) 30 ml PO BID [facility] Last Admin: 07/27/18 08:41 Dose: 30 ml Magnesium Hydroxide (Milk Of Magnesia Liq*) 30 ml PO BID PRN PRN Reason: CONSTIPATION Mometasone Furoate/Formoterol Fumar (Dulera 200/5 Mdi*) 2 puff INH BID [facility] Last Admin: 07/27/18 10:59 Dose: 2 puff Morphine Sulfate (Morphine Inj (Syringe))*) 2 mg IV Q2H PRN PRN Reason: PAIN Last Admin: 07/26/18 05:07 Dose: 2 mg Ondansetron HCl (Zofran Inj*) 4 mg IV Q4H PRN PRN Reason: NAUSEA/VOMITING Oxycodone/Acetaminophen (Percocet 5/325 Tab*) 1 tab PO Q4H PRN PRN Reason: Pain Last Admin: 07/27/18 15:48 Dose: 1 tab Pantoprazole Sodium (Protonix Tab*) 40 mg PO DAILY [facility] Last Admin: 07/27/18 08:41 Dose: 40 mg Polyethylene Glycol/Electrolytes (Miralax*) 17 gm PO DAILY [facility] Last Admin: 07/27/18 08:41 Dose: 17 gm Polyethylene Glycol/Electrolytes (Miralax*) 17 gm PO DAILY PRN PRN Reason: CONSTIPATION Senna (Senokot Tab*) 1 tab PO BEDTIME PRN PRN Reason: CONSTIPATION Vital Signs - 8 hr 07/27/18 07/27/18 07/27/18 08:43 11:42 12:20 Temperature 98.5 F Pulse Rate 78 Respiratory 16 18 16 Rate Blood Pressure 133/74 (mmHg) O2 Sat by Pulse 94 Oximetry 07/27/18 07/27/18 15:24 15:48 Temperature 98.1 F Pulse Rate 72 Respiratory 14 18 Rate Blood Pressure 106/55 (mmHg) O2 Sat by Pulse 92 Oximetry Oxygen Devices in Use Now: Nasal Cannula Appearance: 73 yo M in nAD, aAOx3, poor historian Eyes: No Scleral Icterus, PERRLA Ears/Nose/Mouth/Throat: NL Teeth, Lips, Gums, Mucous Membranes Moist Neck: NL Appearance and Movements; NL JVP, Trachea Midline Respiratory: Symmetrical Chest Expansion and Respiratory Effort, Clear to Auscultation Cardiovascular: NL Sounds; No Murmurs; No JVD, RRR Abdominal: NL Sounds; No Tenderness; No Distention Lymphatic: No Cervical Adenopathy Extremities: No Clubbing, Cyanosis, - - R thigh in post op dressings-not uncovered Skin: No Rash or Ulcers, No Nodules or Sclerosis Neurological: Alert and Oriented x 3, NL Muscle Strength and Tone Result Diagrams: 07/27/18 06:09 07/27/18 06:09 Assess/Plan/Problems-Billing Assessment: Mr Seaman is a 73yo M with PMH of COPD on home O2, HTN, GERD, Small cell lung carcinoma (T1N0M0) s/p chemo/RT in 2013, prior h/o alcohol abuse; who presented to ED after a fall, found to have intertrochanteric right femur fracture. - Patient Problems (1) Right femoral fracture Comment: - Ortho input appreciated - s/p intramedullary nail 07/26/18 - EKG shows no ischemic changes, no significant arrhythmias on Telemetry, echo shows EF 60-65% with normal wall motion, no significant valvular disease. - CT brain showed no acute intracranial changes. He appears to have some memory issues, but he's not confused at this time. - Continue pain management. - Will benefit of rehab after surgery - PMRU consult. (2) COPD (chronic obstructive pulmonary disease) Comment: - No signs of exacerbation at this time. - Good SO2 on his usual home O2 flow. - Continue Albuterol and Dulera. (3) Small cell lung cancer Comment: - As per Oncology records, patient has h/o small cell lung carcinoma ( T1N0M0) treated with cis/etoposide and xRT September 2013, with no evidence of disease. (4) DVT prophylaxis Comment: - Lovenox Status and Disposition: Inpatient.
[2018-07-27] MEDS: Morphine INJ* 2 MG/ML 1 ML SYRINGE (TWO MG - NEW SYRINGE VERSION) IV PRN (23:43)
[2018-07-28] MEDS: Diazepam TAB(*) 5 MG PO PRN (02:49)
[2018-07-28] MEDS: oxyCODONE/Acetamin 5/325 MG* TAB PO PRN ×3 (04:22→18:27)
[2018-07-28] MEDS: Mometasone/Formoter 200/5 MDI INH SCH ×2 (07:47→19:29)
[2018-07-28] MEDS: Magnesium Oxide TAB* 400 MG PO SCH (09:45)
[2018-07-28] MEDS: Docusate CAP* 100 MG PO SCH ×2 (09:46→19:12)
[2018-07-28] MEDS: Magnesium Hydroxide LIQ* 30 ML UDC PO SCH ×2 (09:46→19:12)
[2018-07-28] MEDS: Pantoprazole TAB * 40 MG TAB PO SCH (09:46)
[2018-07-28] MEDS: Polyethylene Glycol 3350* 17 GM PACKET PO SCH (09:47)
[2018-07-28] MEDS: Enoxaparin(*) 40 MG/0.4 ML SYR SUBCUT SCH (11:30)
--- NOTE | 2018-07-28 12:23 | PN ---
Progress Note - Progress Note Date of Service: 07/28/18 SOAP: Subjective: []Patient is seen at bedside, c/o some right hip pain although controlled. PT ready to work with him this morning. Denies, SOB, CP, palpitations or dizziness. Objective: [] Vital Signs Temp 98.0 F 07/28/18 11:26 Pulse 75 07/28/18 11:26 Resp 18 07/28/18 11:26 BP 106/64 07/28/18 11:26 Pulse Ox 93 07/28/18 11:26 Intake & Output 07/27/18 07/28/18 07/28/18 18:59 06:59 18:59 Intake Total 1020 840 Output Total 2050 500 0 Balance -1030 340 0 Intake: Oral 1020 840 Output: Urine 600 500 0 Reyes 1450 Other: Estimated Void Medium # Bowel Movements 1 Estimated Stool Amount Medium # Voids 1 Right hip dressings changed, moderate serosanguenous drainage on dressings, no active drainage, wounds intact 4x4s and tegaderm applied to all incisions calf NT +DF right ankle sensation intact distally. Assessment: []s/p Right hip ORIF short IM nail POD #2 Plan: []PT/OT TTWB RLE Lovenox for 6 weeks post operatively PMRU consult pending
--- NOTE | 2018-07-28 15:51 | PN ---
Subjective Date of Service: 07/28/18 Interval History: Pt is a rather poor historian. Still has problems with ambulating on post op leg Family History: Unchanged from Admission Social History: Unchanged from Admission Past Medical History: Unchanged from Admission Objective Active Medications: Acetaminophen (Tylenol Tab*) 650 mg PO Q4H PRN PRN Reason: FEVER/PAIN Last Admin: 07/27/18 12:29 Dose: 650 mg Al Hydrox/Mg Hydrox/Simethicone (Maalox Plus*) 30 ml PO Q6H PRN PRN Reason: INDIGESTION Albuterol (Ventolin Hfa Inhaler*) 2 puff INH Q6H PRN PRN Reason: SOB/WHEEZING Diazepam (Valium Tab(*)) 5 mg PO Q8H PRN PRN Reason: spasms Last Admin: 07/28/18 02:49 Dose: 5 mg Docusate Sodium (Colace Cap*) 100 mg PO BID [facility] Last Admin: 07/28/18 09:46 Dose: Not Given Enoxaparin Sodium (Lovenox(*)) 40 mg SUBCUT DAILY@1200 [facility] Last Admin: 07/28/18 11:30 Dose: 40 mg Magnesium Hydroxide (Milk Of Magnesia Liq*) 30 ml PO BID [facility] Last Admin: 07/28/18 09:46 Dose: Not Given Magnesium Hydroxide (Milk Of Magnesia Liq*) 30 ml PO BID PRN PRN Reason: CONSTIPATION Magnesium Oxide (Magox 400 Tab*) 800 mg PO DAILY [facility] Last Admin: 07/28/18 09:45 Dose: 800 mg Mometasone Furoate/Formoterol Fumar (Dulera 200/5 Mdi*) 2 puff INH BID [facility] Last Admin: 07/28/18 07:47 Dose: 2 puff Morphine Sulfate (Morphine Inj (Syringe))*) 2 mg IV Q2H PRN PRN Reason: PAIN Last Admin: 07/27/18 23:43 Dose: 2 mg Ondansetron HCl (Zofran Inj*) 4 mg IV Q4H PRN PRN Reason: NAUSEA/VOMITING Oxycodone/Acetaminophen (Percocet 5/325 Tab*) 1 tab PO Q4H PRN PRN Reason: Pain Last Admin: 07/28/18 09:46 Dose: 1 tab Pantoprazole Sodium (Protonix Tab*) 40 mg PO DAILY [facility] Last Admin: 07/28/18 09:46 Dose: 40 mg Polyethylene Glycol/Electrolytes (Miralax*) 17 gm PO DAILY [facility] Last Admin: 07/28/18 09:47 Dose: Not Given Polyethylene Glycol/Electrolytes (Miralax*) 17 gm PO DAILY PRN PRN Reason: CONSTIPATION Senna (Senokot Tab*) 1 tab PO BEDTIME PRN PRN Reason: CONSTIPATION Vital Signs - 8 hr 07/28/18 07/28/18 07/28/18 07:49 08:00 09:46 Temperature Pulse Rate 74 Respiratory 18 18 18 Rate Blood Pressure (mmHg) O2 Sat by Pulse 90 Oximetry 07/28/18 07/28/18 11:26 15:46 Temperature 98.0 F 98.2 F Pulse Rate 75 83 Respiratory 18 18 Rate Blood Pressure 106/64 112/61 (mmHg) O2 Sat by Pulse 93 90 Oximetry Oxygen Devices in Use Now: Nasal Cannula Appearance: 73 yo M in nAD, aAOx3 Eyes: No Scleral Icterus, PERRLA Ears/Nose/Mouth/Throat: NL Teeth, Lips, Gums, Mucous Membranes Moist Neck: NL Appearance and Movements; NL JVP, Trachea Midline Respiratory: Symmetrical Chest Expansion and Respiratory Effort, - - distant breath sounds b/l Cardiovascular: NL Sounds; No Murmurs; No JVD, RRR Abdominal: NL Sounds; No Tenderness; No Distention Lymphatic: No Cervical Adenopathy Extremities: No Edema, No Clubbing, Cyanosis Skin: No Nodules or Sclerosis, - - R hip post op incision covered with dressings Neurological: - - pt has problems with flexing and extending R hip Result Diagrams: 07/27/18 06:09 07/27/18 06:09 Assess/Plan/Problems-Billing Assessment: Mr Seaman is a 73yo M with PMH of COPD on home O2, HTN, GERD, Small cell lung carcinoma (T1N0M0) s/p chemo/RT in 2013, prior h/o alcohol abuse; who presented to ED after a fall, found to have intertrochanteric right femur fracture. - Patient Problems (1) Right femoral fracture Comment: - Ortho input appreciated - s/p intramedullary nail 07/26/18 - EKG shows no ischemic changes, no significant arrhythmias on Telemetry, echo shows EF 60-65% with normal wall motion, no significant valvular disease. - CT brain showed no acute intracranial changes. He appears to have some memory issues, but he's not confused at this time. - Continue pain management. - Will benefit of rehab after surgery - PMRU consult. (2) COPD (chronic obstructive pulmonary disease) Comment: - No signs of exacerbation at this time. - Good SO2 on his usual home O2 flow. - Continue Albuterol and Dulera. (3) Small cell lung cancer Comment: - As per Oncology records, patient has h/o small cell lung carcinoma ( T1N0M0) treated with cis/etoposide and xRT September 2013, with no evidence of disease. (4) DVT prophylaxis Comment: - Lovenox Status and Disposition: Inpatient.
[2018-07-29] MEDS: Diazepam TAB(*) 5 MG PO PRN (00:45)
[2018-07-29] MEDS: Albuterol HFA INHALER* 8 gm MDI INH PRN (03:52)
[2018-07-29] MEDS: oxyCODONE/Acetamin 5/325 MG* TAB PO PRN ×2 (03:59→20:56)
[2018-07-29] MEDS: Mometasone/Formoter 200/5 MDI INH SCH ×2 (08:15→19:22)
--- NOTE | 2018-07-29 08:45 | PN ---
Subjective Date of Service: 07/29/18 Interval History: Pt has no new complaints. Awaiting STR Family History: Unchanged from Admission Social History: Unchanged from Admission Past Medical History: Unchanged from Admission Objective Active Medications: Acetaminophen (Tylenol Tab*) 650 mg PO Q4H PRN PRN Reason: FEVER/PAIN Last Admin: 07/27/18 12:29 Dose: 650 mg Al Hydrox/Mg Hydrox/Simethicone (Maalox Plus*) 30 ml PO Q6H PRN PRN Reason: INDIGESTION Albuterol (Ventolin Hfa Inhaler*) 2 puff INH Q6H PRN PRN Reason: SOB/WHEEZING Last Admin: 07/29/18 03:52 Dose: 2 puff Diazepam (Valium Tab(*)) 5 mg PO Q8H PRN PRN Reason: spasms Last Admin: 07/29/18 00:45 Dose: 5 mg Docusate Sodium (Colace Cap*) 100 mg PO BID [facility] Last Admin: 07/28/18 19:12 Dose: Not Given Enoxaparin Sodium (Lovenox(*)) 40 mg SUBCUT DAILY@1200 [facility] Last Admin: 07/28/18 11:30 Dose: 40 mg Magnesium Hydroxide (Milk Of Magnesia Liq*) 30 ml PO BID [facility] Last Admin: 07/28/18 19:12 Dose: Not Given Magnesium Hydroxide (Milk Of Magnesia Liq*) 30 ml PO BID PRN PRN Reason: CONSTIPATION Magnesium Oxide (Magox 400 Tab*) 800 mg PO DAILY [facility] Last Admin: 07/28/18 09:45 Dose: 800 mg Mometasone Furoate/Formoterol Fumar (Dulera 200/5 Mdi*) 2 puff INH BID [facility] Last Admin: 07/29/18 08:15 Dose: 2 puff Morphine Sulfate (Morphine Inj (Syringe))*) 2 mg IV Q2H PRN PRN Reason: PAIN Last Admin: 07/27/18 23:43 Dose: 2 mg Ondansetron HCl (Zofran Inj*) 4 mg IV Q4H PRN PRN Reason: NAUSEA/VOMITING Oxycodone/Acetaminophen (Percocet 5/325 Tab*) 1 tab PO Q4H PRN PRN Reason: Pain Last Admin: 07/29/18 03:59 Dose: 1 tab Pantoprazole Sodium (Protonix Tab*) 40 mg PO DAILY [facility] Last Admin: 07/28/18 09:46 Dose: 40 mg Polyethylene Glycol/Electrolytes (Miralax*) 17 gm PO DAILY [facility] Last Admin: 07/28/18 09:47 Dose: Not Given Polyethylene Glycol/Electrolytes (Miralax*) 17 gm PO DAILY PRN PRN Reason: CONSTIPATION Senna (Senokot Tab*) 1 tab PO BEDTIME PRN PRN Reason: CONSTIPATION Vital Signs - 8 hr 07/29/18 07/29/18 07/29/18 00:45 03:30 03:59 Temperature Pulse Rate Respiratory 22 18 20 Rate Blood Pressure (mmHg) O2 Sat by Pulse Oximetry 07/29/18 07/29/18 07/29/18 04:32 05:40 07:30 Temperature 98.1 F 98.4 F Pulse Rate 81 64 Respiratory 16 18 18 Rate Blood Pressure 130/77 113/72 (mmHg) O2 Sat by Pulse 94 96 Oximetry 07/29/18 08:18 Temperature Pulse Rate 94 Respiratory 18 Rate Blood Pressure (mmHg) O2 Sat by Pulse 95 Oximetry Oxygen Devices in Use Now: Nasal Cannula Appearance: 73 yo m in nAD, AAOx2, poor historian Eyes: No Scleral Icterus, PERRLA Ears/Nose/Mouth/Throat: NL Teeth, Lips, Gums, Mucous Membranes Moist Neck: NL Appearance and Movements; NL JVP, Trachea Midline Respiratory: Symmetrical Chest Expansion and Respiratory Effort, Clear to Auscultation Cardiovascular: NL Sounds; No Murmurs; No JVD, RRR Abdominal: NL Sounds; No Tenderness; No Distention Lymphatic: No Cervical Adenopathy Extremities: No Clubbing, Cyanosis, - - left thigh incision covered, no hematoma noted Skin: No Rash or Ulcers, No Nodules or Sclerosis Result Diagrams: 07/27/18 06:09 07/27/18 06:09 Assess/Plan/Problems-Billing Assessment: Mr Seaman is a 73yo M with PMH of COPD on home O2, HTN, GERD, Small cell lung carcinoma (T1N0M0) s/p chemo/RT in 2013, prior h/o alcohol abuse; who presented to ED after a fall, found to have intertrochanteric right femur fracture. - Patient Problems (1) Right femoral fracture Comment: - Ortho input appreciated - s/p intramedullary nail 07/26/18 - EKG shows no ischemic changes, no significant arrhythmias on Telemetry, echo shows EF 60-65% with normal wall motion, no significant valvular disease. - CT brain showed no acute intracranial changes. He appears to have some memory issues, but he's not confused at this time. - Continue pain management. - Will benefit of rehab after surgery - PMRU consult. (2) COPD (chronic obstructive pulmonary disease) Comment: - No signs of exacerbation at this time. - Good SO2 on his usual home O2 flow. - Continue Albuterol and Dulera. (3) Small cell lung cancer Comment: - As per Oncology records, patient has h/o small cell lung carcinoma ( T1N0M0) treated with cis/etoposide and xRT September 2013, with no evidence of disease. (4) DVT prophylaxis Comment: - Lovenox Status and Disposition: Inpatient.
[2018-07-29] MEDS: Magnesium Oxide TAB* 400 MG PO SCH (10:46)
[2018-07-29] MEDS: Magnesium Hydroxide LIQ* 30 ML UDC PO SCH ×2 (10:46→20:48)
[2018-07-29] MEDS: Docusate CAP* 100 MG PO SCH ×2 (10:46→20:56)
[2018-07-29] MEDS: Pantoprazole TAB * 40 MG TAB PO SCH (10:47)
[2018-07-29] MEDS: Polyethylene Glycol 3350* 17 GM PACKET PO SCH (10:47)
--- NOTE | 2018-07-29 10:47 | PN ---
Progress Note - Progress Note Date of Service: 07/29/18 SOAP: Subjective: [Pt reports he is having a tough time - but trying to fight through it. Has been working with PT trying to bear more weight on RLE. Denies CP, dizziness. Uses albuterol inhaler for SOB.] Objective: [A and O x 3, NAD. Family members at bedside R hip dressings C/D/I Calves soft, NT. Distal gross motor and NV function intact Vital Signs: Temp Pulse Resp BP Pulse Ox 98.4 F 94 18 113/72 95 07/29/18 07:30 07/29/18 08:18 07/29/18 08:18 07/29/18 07:30 07/29/18 08:18 ] Assessment: [s/p R hip ORIF short IM nail POD #3] Plan: [Con't PT/OT - WBAT RLE Lovenox x 6 weeks post-op Incentive spirometer PMRU consult pending]
[2018-07-29] MEDS: Enoxaparin(*) 40 MG/0.4 ML SYR SUBCUT SCH (12:15)
[2018-07-30 08:21] VITALS: BP 128/68
[2018-07-30] MEDS: oxyCODONE/Acetamin 5/325 MG* TAB PO PRN (10:27)
[2018-07-30] MEDS: Pantoprazole TAB * 40 MG TAB PO SCH (10:28)
[2018-07-30] MEDS: Magnesium Oxide TAB* 400 MG PO SCH (10:28)
[2018-07-30] MEDS: Docusate CAP* 100 MG PO SCH (10:28)
[2018-07-30] MEDS: Polyethylene Glycol 3350* 17 GM PACKET PO SCH (10:29)
[2018-07-30] MEDS: Magnesium Hydroxide LIQ* 30 ML UDC PO SCH (10:29)
[2018-07-30] MEDS: Albuterol HFA INHALER* 8 gm MDI INH PRN (10:30)
[2018-07-30] MEDS: Mometasone/Formoter 200/5 MDI INH SCH (10:30)
--- NOTE | 2018-07-30 11:20 | PN ---
Progress Note - Progress Note Date of Service: 07/30/18 SOAP: Subjective: [Pt reports minimal pain R hip. Managed well with po meds. Denies CP, SOB. Using IS.] Objective: [Pt asleep upon my entrance but easily awakened. A and O x3, NAD R hip dressings C/D/I. Calves soft, NT Distal gross motor and NV function intact. Vital Signs: Temp Pulse Resp BP Pulse Ox 99.0 F 70 18 128/68 95 07/30/18 07:39 07/30/18 07:39 07/30/18 10:56 07/30/18 07:39 07/30/18 07:39 ] Assessment: [s/p L hip IM short nail POD #4] Plan: [PT/OT Lovenox for 6 weeks post op PMRU consult]
--- NOTE | 2018-07-30 12:24 | DS ---
CC: Dr. Stockton; Dr. Lockwood; Dr. Bojorquez; Dr. Rao.* DISCHARGE SUMMARY: DATE OF ADMISSION: 07/25/18 DATE OF DISCHARGE AND TRANSFER TO PHYSIOTHERAPY UNIT: 07/30/18 PRIMARY CARE PROVIDER: Dr. Sandy Lockwood. DISPOSITION ON DISCHARGE: PMRU. CONDITION ON DISCHARGE: Stable. DISCHARGE DIAGNOSIS: Right femur fracture status post right hip trochanteric femoral nail placement performed by Dr. Stockton on 07/26/18. SECONDARY DIAGNOSES: 1. Chronic obstructive pulmonary disease, oxygen dependent at 1 to 2 L. 2. Mild memory problems. 3. History of small cell lung carcinoma status post treatment, in remission. 4. History of tobacco use. 5. Hypertension. 6. Gastroesophageal reflux disease. MEDICATIONS ON DISCHARGE: Include: 1. Albuterol inhaler on a p.r.n. basis. 2. Amlodipine 10 mg daily. 3. Aspirin 81 mg daily. 4. Dulera 200/5 one inhalation b.i.d. 5. Protonix 40 mg daily. 6. Potassium chloride 20 mEq daily. 7. Acetaminophen on a p.r.n. basis. 8. Colace 100 mg b.i.d. 9. Lovenox 40 mg subcutaneous daily for a total of 6 weeks postoperatively. 10. Percocet 5/325 mg 1 tablet every 4 hours p.r.n. 11. Remaining medications are laxatives on an as needed basis. LABORATORY DATA AND STUDIES PERFORMED DURING THE HOSPITAL STAY: Included: On , white blood cell count 11.7, hemoglobin 11.5, hematocrit 35, and platelets 207. On 07/27/18, sodium of 136, potassium 4.0, chloride 102, carbon dioxide 30, BUN 10, creatinine 0.73, magnesium 1.8. Brain CT obtained on 07/25/18, impression: "Involutional changes, stigmata of chronic small-vessel ischemic changes. No acute intracranial process evident." Transthoracic echocardiogram obtained on 07/25/18 showed EF of 60% to 65% with normal systolic function with trace tricuspid regurgitation and no change comparing to echo obtained in 2013. Femur x-ray obtained on 07/25/18, impression: "Intertrochanteric fracture of the right femur." Portable chest x-ray on 07/25/18, impression: "Limited study, COPD. No active cardiopulmonary disease." Hip x-ray obtained on 07/25/18, impression: "Intertrochanteric fracture of the right femur." PROCEDURES PERFORMED: Included: As described above, trochanteric femoral nail placement by Dr. Stockton on the right side on 07/26/18. HOSPITALIZATION COURSE: Joe Seaman is a 73-year-old male with a history of lung cancer, in remission with COPD, on oxygen at 1 to 2 L at home, who presented to the hospital after a fall. The patient did not remember what happened, but he has had problems with memory as per his family members. The patient was noted to have right hip fracture that was treated with right intertrochanteric nail placement by Dr. Stockton on 07/26/18. Postoperatively, the patient underwent physical therapy evaluation, was deemed to be a good candidate for our physiotherapy unit for further physical therapy. He is being discharged on 07/30/18 to our PMRU. He is recommended to continue Lovenox 40 mg subcutaneously daily for a total of 6 weeks postop. PHYSICAL EXAM: At the time of discharge, blood pressure of 128/68, heart rate of 70 and regular, respiratory rate 18, oxygen saturation 95% on 1 L of oxygen nasal cannula, temperature 99.0. General: The patient is a pleasant 73-year- old male, who is in no acute distress. The patient is alert and oriented x2. He is rather forgetful and a poor historian. HEENT: Head atraumatic, normocephalic. Eyes: Pupils equal and reactive to light and accommodation. Oropharynx is clear. Mucosa moist. Neck: Supple. No JVD. No bruits bilaterally. Cardiovascular: Regular rate and rhythm. No murmur. Respiratory : Clear to auscultation bilaterally. Abdomen: Soft, nontender. Bowel sounds are present in all 4 quadrants. Extremities: There is trace right thigh edema. Pedal pulses are +2 bilaterally. There is no clubbing, no cyanosis, and no pedal edema noted. On evaluation of the skin, the right hip surgical dressings were not removed for evaluation but grossly there is no evidence of hematoma or cellulitis. Please note that this is a short summary of the patient's hospital stay. Please refer to further medical records for details. TIME SPENT: Approximately 45 minutes was spent on this patient's discharge. [id number]/[facility] #: [id number] MICKIE
== END 2018-07-30 11:55 | DRG 482 ==
LOC: ED 01:17 → SSU 04:15
PROVIDERS: ADMIT Pediatrics; ATTEND Internal Medicine
PROC: 0QS606Z Reposition Right Upper Femur with Intramedullary Internal Fixation Device, Open Approach (ICD-10-PCS; principal; 2018-07-26 10:45)
DX: S72.141A Displaced intertrochanteric fracture of right femur, initial encounter for closed fracture (principal); J44.9 Chronic obstructive pulmonary disease, unspecified; Z99.81 Dependence on supplemental oxygen; I10 Essential (primary) hypertension; K21.9 Gastro-esophageal reflux disease without esophagitis; W18.30XA Fall on same level, unspecified, initial encounter; Y92.9 Unspecified place or not applicable; Z85.110 Personal history of malignant carcinoid tumor of bronchus and lung; Z92.3 Personal history of irradiation; Z92.21 Personal history of antineoplastic chemotherapy; Z79.82 Long term (current) use of aspirin; Z79.51 Long term (current) use of inhaled steroids; Z79.899 Other long term (current) drug therapy
CPT/HCPCS: 36415; 70450; 71045; 76000; 80048; 80053; 81003; 82306; 83605; 83735; 84484; 85025; 85610; 85730; 86850; 86900; 86901; 93005; 93306; 94640; 99284; A9270-GY; C1713; C1776; G8978-GP-CM; G8979-GP-CI; G8987-GO-CM; G8988-GO-CI; J0690; J1100; J1644; J1650; J1885; J2250; J2270; J2405; J2704; J3010; J3490

== ENCOUNTER 2018-07-30 08:33 | Inpatient (IN) | payer MEDICARE ==
[2018-07-30] MEDS ORDERED: Al Hydrox/Mg Hydrox/Simet LIQ* 30 ML UDC PO PRN (09:54)
[2018-07-30] MEDS ORDERED: Bisacodyl SUPP* 10 MG SUPP PR PRN (09:54)
[2018-07-30] MEDS ORDERED: Magnesium Hydroxide LIQ* 30 ML UDC PO PRN (09:54)
[2018-07-30] MEDS ORDERED: Polyethylene Glycol 3350* 17 GM PACKET PO PRN (10:05)
[2018-07-30] MEDS ORDERED: Diazepam TAB(*) 5 MG PO PRN (10:11)
[2018-07-30] MEDS ORDERED: Methocarbamol TAB* 500 MG PO PRN (10:12)
--- NOTE | 2018-07-30 12:15 | HP ---
CC: Dr. Lockwood; Dr. Stockton * REHABILITATION ADMISSION: DATE OF ADMISSION: 07/30/18 PRIMARY CARE PROVIDER: Dr. Lockwood. ORTHOPEDIC SURGEON: Dr. Stockton. REASON FOR ADMISSION: Right hip fracture. HISTORY OF PRESENT ILLNESS: This is a 73-year-old man, who on 07/25/18 was at home and does not recall any specific circumstances leading up to his fall and hip fracture. He was brought to the emergency room and found to have a right intertrochanteric femur fracture. He was noted to be confused. Head CT showed involutional changes and stigmata of chronic small vessel ischemic disease. He had a transthoracic echocardiogram on 07/25/18 that showed oxygen fraction of 60 % to 65% and no other concerns. He has underlying COPD. He is normally on home oxygen. After medical clearance, he was taken to the OR on 07/26/18 for right hip trochanteric femoral nail. He has toe touch weightbearing precautions postoperatively and has been placed on Lovenox for DVT prophylaxis for the next 6 weeks. Prior to admission, he was independent with mobility and self-care, although had help with IADLs. With OT, he required a total amount of assistance for dressing and toileting using a Erick lift. With physical therapy, he has required also transfers using a Erick lift and mod to max amount of assistance x2 for bed mobility going from supine to sit. His blood pressure has been in the normal range and he has been off of his home amlodipine. He has been receiving Valium typically once per day for spasms, but it does not appear that this was a home medication. He has been using Percocet for pain relief. PAST MEDICAL HISTORY: 1. COPD, on home oxygen 2 L per minute. 2. History of small cell lung cancer, treated in 2013 with radiation and chemotherapy, currently in remission. 3. History of alcohol abuse. 4. Hypertension. 5. GERD. 6. History of urinary incontinence. 7. History of constipation. MEDICATIONS: Currently: 1. Colace 100 mg b.i.d. 2. Dulera 200/5 2 puffs b.i.d. 3. Lovenox 40 mg subcutaneously daily. 4. Magnesium oxide 800 mg daily. 5. Milk of magnesia p.r.n. 6. MiraLax 17 g daily p.r.n. 7. Protonix 40 mg daily. 8. Maalox p.r.n. 9. Percocet 5/325 1 tablet q.4 hours p.r.n. pain. 10. Senokot p.r.n. 11. Tylenol 650 mg q.4 hours p.r.n. 12. Ventolin 2 puffs q.6 hours p.r.n. shortness of breath or wheezing. ALLERGIES: No known drug allergies. FAMILY HISTORY: Mother, heart failure. Maternal grandmother had lung and breast cancer. SOCIAL HISTORY: He lives with his sister and nephew. He is a retired and also used to work for the formerly [employer], [employer]. He quit smoking about 4 years ago. He also used to drink more heavily. It is unclear if he has continued to drink on a regular basis, but he has not had any concerns on the acute care service. His healthcare proxy is his nephew, Volodymyr Dixon, cell phone number , home number [phone]. Their home has approximately 6 steps to enter and has 2 levels with a flight of stairs between. He can stay on the first floor if needed per prior therapy report. I was unable to reach Volodymyr Dixon or his sister on the phone for confirmation. REVIEW OF SYSTEMS: See history of present illness and past medical history. No other significant findings on a 13-system review. PHYSICAL EXAMINATION GENERAL: Well developed, well nourished, appearing stated age. Mental Status: No acute distress. He is alert and appropriate. He knows the year and the month, but does not know the number day or day of the week. He is aware that he is in for hip fracture, but does not recall circumstances. VITAL SIGNS: Temperature 98.2, pulse 75, respirations 16, oxygen saturation 93 % on 2 L, blood pressure 128/69. HEENT: Normocephalic, atraumatic. Oropharynx is clear. He is missing several teeth, but has the front of his upper and lower teeth that are his own. Moist mucous membranes. NECK: Supple. No lymphadenopathy. LUNGS: There are decreased breath sounds bilaterally consistent with his history of COPD. HEART: His heart has regular rate and rhythm. ABDOMEN: Active bowel sounds. Soft, nontender, nondistended. EXTREMITIES: No clubbing, cyanosis, or edema. SKIN: His dressing is intact. His right hip dressing is clean and dry. There is also a lower dressing on the right side above his knee, also clean and dry NEUROLOGICAL: Cranial nerves II through XII are intact. Upper and lower extremity motor 5/5 bilaterally with normal sensation with limited testing of the right hip and knee secondary to the pain. LABORATORY DATA: On 07/27, he had a mild elevation of his white blood cells at 11.7, hemoglobin was 11.5, hematocrit 35. Sodium 136, potassium 4, BUN 10, creatinine 0.73, glucose 142, calcium 8.4, magnesium 1.8. On 07/25/18, his vitamin D level was 9.7. IMPRESSION: A 73-year-old man, status post right hip fracture and open reduction and internal fixation. He will be admitted to [facility], so he can return to living with family. PLAN: 1. Right hip fracture. Follow up with Dr. Stockton. We will increase Percocet to 1 to 2 tablets q.4 hours p.r.n. Toe touch weightbearing to the right lower extremity. Valium was on his medication list for spasms, which he has used once per day, but I will try adding in methocarbamol and discontinue Valium. 2. Chronic obstructive pulmonary disease. Continue his current inhalers and oxygen as needed. 3. DVT prophylaxis. Lovenox subcutaneously for 6 weeks. He or family member may need to learn self administration before discharge. 4. Hypertension. His amlodipine continues to be on hold. 5. Confusion and impaired cognition. I will ask Speech Therapy to evaluate his cognitive status. 6. History of urinary incontinence. He is currently using a urinal, will use Depends as needed. 7. Constipation. His bowels will be regulated. 8. Hypomagnesemia and Vitamin D deficiency. Recheck Mg tomorrow. Consider Vitamin D supplementation. 9. Hyperglyemia. check Hemoglobin A1c. 10. Acute post-op anemia. recheck CBC. 11. Impaired mobility. He will be seen by Physical Therapy for bed mobility, transfer training, and ambulation if he is able, as well as stairs. If he is not able to ambulate, focus on wheelchair mobility. 12. Impaired self-care. He will be seen by Occupational Therapy for ADL training and equipment evaluation. Will include family training as appropriate. ADVANCE DIRECTIVES: Full code. His nephew, Volodymyr Dixon is his healthcare proxy if he cannot make decisions for himself. His cell phone number [phone]. His home phone is [phone]. ESTIMATED LENGTH OF STAY: Three to four weeks. [id number]/[facility] #: [id number] MICKIE
[2018-07-30] MEDS: Enoxaparin(*) 40 MG/0.4 ML SYR SUBCUT SCH (12:17)
[2018-07-30] MEDS: oxyCODONE/Acetamin 5/325 MG* TAB PO PRN (20:06)
[2018-07-30] MEDS: Docusate CAP* 100 MG PO SCH (20:06)
[2018-07-30] MEDS: Mometasone/Formoter 200/5 MDI INH SCH (20:09)
[2018-07-31] MEDS: oxyCODONE/Acetamin 5/325 MG* TAB PO PRN ×4 (04:46→20:02)
[2018-07-31 05:58] LABS: ABS Eosinophils 0.3 10^3/ul (0-0.6); ABS Lymphocytes 1.5 10^3/ul (1.0-4.8); ABS Monocytes 0.9 10^3/ul (0-0.8); ABS Neutrophils 5.5 10^3/ul (1.5-7.7); Eosinophil % 3.3 %; Hematocrit 32 % (42-52); Hemoglobin 10.4 g/dL (14.0-18.0); Lymphocyte % 18.4 %; Mean Corpuscular HGB Conc 33 g/dL (31-36); Mean Corpuscular Hemoglobin 27 pg (27-31); Mean Corpuscular Volume 81 fL (80-94); Mean Platelet Volume 7.3 fL (7.4-10.4); Platelet Count 250 10^3/uL (150-450); Red Blood Count 3.91 10^6 /uL (4.18-5.48); Red Cell Distribution Width 15 % (10-15); White Blood Count 8.1 10^3/uL (3.5-10.8)
[2018-07-31 06:15] LABS: Albumin 3.2 g/dL (3.2-5.2); Albumin/Globulin Ratio 1.2 (1-3); BUN/Creatinine Ratio 17.7 (8-20); Calcium 8.5 mg/dL (8.6-10.3); EGFR African American 116.7 (>60); EGFR Non-African American 96.4 (>60); Globulin 2.6 g/dL (2-4); Magnesium 1.8 mg/dL (1.9-2.7); Potassium 3.9 mmol/L (3.5-5.0); Total Bilirubin 0.6 mg/dL (0.2-1.0); Total Protein 5.8 g/dL (6.4-8.9)
[2018-07-31] MEDS: Magnesium Oxide TAB* 400 MG PO SCH (09:00)
[2018-07-31] MEDS: Pantoprazole TAB * 40 MG TAB PO SCH (09:00)
[2018-07-31] MEDS: Mometasone/Formoter 200/5 MDI INH SCH ×2 (09:04→20:08)
[2018-07-31] MEDS: Albuterol HFA INHALER* 8 gm MDI INH PRN (09:04)
[2018-07-31] MEDS: Docusate CAP* 100 MG PO SCH ×2 (09:17→20:02)
[2018-07-31] MEDS: Enoxaparin(*) 40 MG/0.4 ML SYR SUBCUT SCH (12:24)
--- NOTE | 2018-07-31 18:41 | PN ---
Progress Note Date of Service: 07/31/18 Note: KORIN GUZMAN was visited. Therapy notes read and reviewed. He doesn't report any pain. He wears oxygen at rest and says he does this at home. He has known COPD. Current Medications: Active Medications Generic Name Dose Route Start Last Admin Trade Name Freq PRN Reason Stop Dose Admin Acetaminophen 650 mg 07/30/18 09:54 Tylenol Tab* PO Q6H PRN FEVER > 101 Al Hydrox/Mg Hydrox/Simethicone 30 ml 07/30/18 09:54 Maalox Plus* PO Q6H PRN INDIGESTION Albuterol 2 puff 07/30/18 10:13 07/31/18 09:04 Ventolin Hfa Inhaler* INH 1 admin Q6H PRN Administration SOB/WHEEZING Bisacodyl 10 mg 07/30/18 09:54 Dulcolax Supp* CO DAILY PRN CONSTIPATION Cholecalciferol 2,000 units 08/01/18 09:00 Vitamin D Tab* PO DAILY SUNDEEP Docusate Sodium 100 mg 07/30/18 21:00 07/31/18 09:17 Colace Cap* PO 100 mg BID SUNDEEP Administration Enoxaparin Sodium 40 mg 07/30/18 12:00 07/31/18 12:24 Lovenox(*) SUBCUT 40 mg Q24H SUNDEEP Administration Magnesium Hydroxide 30 ml 07/30/18 09:54 Milk Of Magnesia Liq* PO Q6H PRN CONSTIPATION Magnesium Oxide 800 mg 07/31/18 09:00 07/31/18 09:00 Magox 400 Tab* PO 800 mg DAILY SUNDEEP Administration Methocarbamol 750 mg 07/30/18 10:12 Robaxin Tab* PO QID PRN muscle spasm Mometasone Furoate/Formoterol Fumar 2 puff 07/30/18 21:00 07/31/18 09:04 Dulera 200/5 Mdi* INH 2 puff BID SUNDEEP Administration Oxycodone/Acetaminophen 1 tab 07/30/18 10:07 Percocet 5/325 Tab* PO Q4H PRN PAIN Oxycodone/Acetaminophen 2 tab 07/30/18 10:21 07/31/18 15:38 Percocet 5/325 Tab* PO 2 tab Q4H PRN Administration PAIN Pantoprazole Sodium 40 mg 07/31/18 09:00 07/31/18 09:00 Protonix Tab* PO 40 mg DAILY SUNDEEP Administration Polyethylene Glycol/Electrolytes 17 gm 07/30/18 10:05 Miralax* PO DAILY PRN CONSTIPATION Senna 2 tab 07/30/18 09:54 Senokot Tab* PO BEDTIME PRN CONSTIPATION Vital Signs: Vital Signs Temp Pulse Resp BP Pulse Ox 98.2 F 66 22 114/64 93 07/31/18 15:41 07/31/18 15:41 07/31/18 15:41 07/31/18 15:41 07/31/18 16:02 Lab Results: Laboratory Results - last 24 hr 07/31/18 07/31/18 07/31/18 05:37 05:37 05:37 WBC 8.1 RBC 3.91 L Hgb 10.4 L Hct 32 L MCV 81 MCH 27 MCHC 33 RDW 15 Plt Count 250 MPV 7.3 L Neut % (Auto) 67.2 Lymph % (Auto) 18.4 [place] % (Auto) 10.8 Eos % (Auto) 3.3 Baso % (Auto) 0.3 Absolute Neuts (auto) 5.5 Absolute Lymphs (auto) 1.5 Absolute Monos (auto) 0.9 H Absolute Eos (auto) 0.3 Absolute Basos (auto) 0.0 Absolute Nucleated RBC 0.0 Nucleated RBC % 0.0 Sodium 134 L Potassium 3.9 Chloride 101 Carbon Dioxide 30 Anion Gap 3 BUN 14 Creatinine 0.79 Est GFR ( Amer) 116.7 Est GFR (Non-Af Amer) 96.4 BUN/Creatinine Ratio 17.7 Glucose 117 H Hemoglobin A1c 5.9 H Calcium 8.5 L Magnesium 1.8 L Total Bilirubin 0.60 AST 20 ALT 33 Alkaline Phosphatase 52 Total Protein 5.8 L Albumin 3.2 Globulin 2.6 Albumin/Globulin Ratio 1.2 Exam: GENERAL: In no distress LUNGS: Mostly clear bilaterallly HEART: reg rhythm ABDOMEN: Soft, +BS EXTREMITIES: Dressing on right leg with scant drainage NEUROLOGIC: Alert, oriented. Moves all 4 extremities. Can dorsiflex right foot Assessment/Plan: 1. Right Hip Fracture: TTWB on RLE. PT/OT 2. COPD: Dulera/Albuterol 3. Small Cell Lung Cancer: Stable 4. GERD: Protonix 5. DVT Prophylaxis: Lovenox 6. Advance Directives: Full Code. 7. 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 [employer]/OT 07/31/18 18:45 07/31/18 18:47
[2018-07-31] MEDS: Senna TAB 8.6 mg* TAB PO PRN (20:02)
[2018-08-01] MEDS: oxyCODONE/Acetamin 5/325 MG* TAB PO PRN ×3 (00:16→21:09)
[2018-08-01] MEDS: Cholecalciferol TAB* 1000 UNITS PO SCH (08:57)
[2018-08-01] MEDS: Docusate CAP* 100 MG PO SCH ×2 (08:58→21:09)
[2018-08-01] MEDS: Magnesium Oxide TAB* 400 MG PO SCH (08:59)
[2018-08-01] MEDS: Pantoprazole TAB * 40 MG TAB PO SCH (08:59)
[2018-08-01] MEDS: Mometasone/Formoter 200/5 MDI INH SCH ×2 (09:00→21:13)
--- NOTE | 2018-08-01 12:40 | PMRUTEAM ---
PMRU: Team Meeting Current Status: Nursing: Current Status Skin Deviations [Right Heel] Pressure Ulcer Skin Deviations [Right Hip] Incision Skin Deviation Description [ unblanchable - spenco or pillows used Right Heel] Skin Deviation Description [ drsg in place Right Hip] Wound Stage [Right Heel] II Physical Therapy: Current Status Bed Mobility Assistance Total Assist,2 or More Person Assist Transfer Mobility Assistance 2 or More Person Assist Transfer/Bed Mobility Erick Lift Recommended Devices Ambulation Assistance Unable Ambulation Assistive Devices Rolling Walker Stairs Assistance Not Tested Stairs Recommended Devices One Rail,Two Rails Number of Stairs 13 Wheelchair Distance (ft) 0 Occupational Therapy: Current Status Upper Body Dressing Min Assist Lower Body Dressing Total Assist,2 Person Assist Bathing Max Asst,2 Person Assist Toileting Total Assist,3+ Person Assist Toilet Transfer Total Assist,3+ Person Assist Eating Independent Rec Therapy: Current Status Summary of Assessment and Recreation Therapy assessment complete and pt. is Clinical Impression aware of services. Pt. identified with few interests but stated he enjoys his life and is open to continued leisure visits as well as pet therapy while on the unit. Treatment Goals Pt. will engage in leisure activities. Treatment Plan Provide recreation therapy and encourage involvement. Social Work: Current Status Discharge Plan return home with home care svs and family support Potential for Family Training pt's nephew is involved and supportive Anticipated Discharge Home Destination Anticipated Discharge will need a wheelchair ramp Destination Comment Discharge With home care svs and family support Nutrition: Current Status Monitoring pt s/p right femoral neck fx; OR 07/26/18. Regular diet is appropriate. Pt accepting 75-100% of meals at this time. Last BM 07/29; bowel meds in place. Full nutrition assessment planned on or before 08/06. Tentative nutrition goals as outlined below. Speech: Current Status Speech Goal 2 Current Status Moderate impairment Goals: Physical Therapy: Initial Goals Bed Mobility Assistance Independent Transfer Mobility Assistance Independent Transfer/Bed Mobility Rolling Walker Recommended Devices Ambulation Independent Ambulation Recommended Devices Rolling Walker Ambulation Distance 50 Wheelchair Propulsion Ability Independent Wheelchair Distance (ft) 150 Stairs Assistance Independent Stair Recommended Devices Two Rails Number of Stairs flight Home Exercise Program Independent Assistance Physical Therapy: Updated Goals Transfer/Bed Mobility Erick Lift Recommended Devices Occupational Therapy: Initial Goals Goals to be Completed in (Days 35-42 ) Upper Body Bathing Routine Independent Lower Body Bathing Routine Modified Independent with Upper Body Dressing Routine Independent Lower Body Dressing Routine Modified Independent with Toilet Hygeine and Clothing Modified Independent with Management Routine Toilet Transfer Routine Modified Independent with Step-In Shower Transfer Modified Independent with Routine Functional Transfers for ADL Modified Independent with Grooming Routine Independent Feeding Routine Independent Nutrition: Goals Intervention Goals 1. adequate intake to support hydration, stable wt, and lean body mass 2. maintain serum electrolytes WNL 3. regulation of bowel pattern; no c/o constipation (or diarrhea) Speech: Goals Speech Goal 1 Memory Speech Evaluation Status Goal Moderate impairment 1 Goal 1 Comments Memory Goals: Long-Term Goal: Pt will use compensatory strategies to encode and retrieve 5/5 new items after delay of 30 minutes, Independently, for independence in mobility safety, ADLs and community access. Status: Goal established Short-term Goal: Pt will use compensatory strategies to encode and retrieve 3/4 new items after delay of 5 minutes, given skilled instruction, Moderate cueing, and extra time. Status: Goals established. Speech Goal 2 Problem Solving Speech Goal 2 Current Status Moderate impairment Speech Goal 2 Comments Problem Solving Goals: Long-Term Goal: Pt will use compensatory strategies to solve moderately complex routine problems, for transfer and mobility safety, adaptive dressing, time and money management; with 100% accuracy, Independently. Status: Goal established Short-Term Goal: Pt will use compensatory strategies to solve simple routine problems, for transfer and mobility safety, adaptive dressing, time and money management; with 80% accuracy, given skilled instruction, Moderate cueing, and extra time. Status: Goal established. Social Work: Goals Discharge Plan return home with home care svs and family support Potential for Family Training pt's nephew is involved and supportive Anticipated Discharge Home Destination Anticipated Discharge will need a wheelchair ramp Destination Comment Discharge With home care svs and family support Care Plan: Care Plan ADL's - Improve/Maintain Start: 07/30/18 23:14 Freq: DAILY Status: Active Target: Protocol: Activity Type Activity Date Activity User E-Sign Co-Sign Detail Recorded Client Recorded Date Recorded By Document 08/01/18 09:54 [id number] 08/01/18 09:54 [id number] 08/01/18 09:54 PMRU Outcome: ADL's/ADL Transfers Orders/Interventions Occupational Therapy Evaluation & Treatment Communication Tool in Patient Room Patient to receive OT 5x/wk for 60-120 Therex min/day Self Care Management Group Therapy UE/LE ADL's with Assist Yes: mod I ADL Transfers with Assist Yes: mod I Toileting: Transfers,Clothing Management Yes: mod I ,Hygeine w/Assist Light Kitchen/Laundry w/Assist No Progression Toward Outcome/Goals Progressing Outcome/Goals Met Pt needs maximal encouragement to participate in ADL tasks. Continues to resist rolling to either side. Needs O2 throughout session d/t feelings of SOB . DVT Prophylaxis- Improve/Maintain Start: 07/30/18 23:14 Freq: QSHIFT Status: Active Target: Protocol: Activity Type Activity Date Activity User E-Sign Co-Sign Detail Recorded Client Recorded Date Recorded By Document 07/31/18 16:04 [id number] 07/31/18 16:05 [id number] 07/31/18 16:04 PMRU Outcome: DVT Prophylaxis Outcome/Goals Remains Free of DVT TEDS Stockings on Every AM, Off at HS Progression Toward Outcome/Goals Progressing Discharge Planning - Improve/Maintain Start: 07/30/18 23:14 Freq: DAILY Status: Active Target: Protocol: Activity Type Activity Date Activity User E-Sign Co-Sign Detail Recorded Client Recorded Date Recorded By Document 07/31/18 23:14 [id number] 08/01/18 00:37 [id number] 07/31/18 23:14 PMRU Outcome: Discharge Planning Update Patient Family No Outcome/Goals Demonstrates Understanding of Discharge Plan /GI-Improve/Maintain Start: 07/30/18 23:14 Freq: QSHIFT Status: Active Target: Protocol: Activity Type Activity Date Activity User E-Sign Co-Sign Detail Recorded Client Recorded Date Recorded By Document 07/31/18 16:04 [id number] 07/31/18 16:05 [id number] 07/31/18 16:04 PMRU Outcome: Genitourinary/ Gastrointestinal Genitourinary- Outcome/Goals Maintain/ Achieve Urinary Continence Gastrointestinal-Outcome/Goals Maintain/ Achieve Bowel Regularity in Accordance with Pt's Baseline Prevent Constipation Progression Toward Outcome/Goals - Progressing Mobility- Improve/Maintain Start: 07/30/18 13:23 Freq: DAILY Status: Active Target: Protocol: Activity Type Activity Date Activity User E-Sign Co-Sign Detail Recorded Client Recorded Date Recorded By Document 07/31/18 14:20 [id number] 07/31/18 14:23 [id number] 07/31/18 14:20 PMRU Outcome: Mobility Physical Therapy Evaluation and Yes Treatment Activity OOB with Assistance Yes TTWB Yes: R LE Device Yes: FWW/ERICK Assistance Yes: Total Patient to be seen 5x/wk for 60-120 min/ Therex day for: Mobility Training Gait Training W/C Mobility Balance Outcome/Goals Maintain/ Achieve Baseline Mobility Status Improve Mobility Status Demonstrates Proper Use of Assistive Devices Free from Complications of Immobility Bed Mobility Yes: Ind Transfers Yes: Mod I with walker Gait x ft Yes: Mod I with walker x50ft W/C Mobility x ft Yes: Mod I x150ft Up/Down Stairs Yes: Mod I, flight with 2 rails With HEP Yes Goal Comment Recall TTWBing to RLE Neurological- Improve/Maintain Start: 07/30/18 23:14 Freq: QSHIFT Status: Active Target: Protocol: Activity Type Activity Date Activity User E-Sign Co-Sign Detail Recorded Client Recorded Date Recorded By Document 07/31/18 16:04 [id number] 07/31/18 16:05 [id number] 07/31/18 16:04 PMRU Outcome: Neurological Weakness/Aphasia Weakness Right Side Outcome/Goals Maintain/ Achieve Baseline Neurological Status Improve Neurological Status Maintain/ Improve Strength/ROM Progression Toward Outcome/Goals Progressing Pain/Comfort- Improve/Maintain Start: 07/30/18 13:23 Freq: QSHIFT Status: Active Target: Protocol: Activity Type Activity Date Activity User E-Sign Co-Sign Detail Recorded Client Recorded Date Recorded By Document 07/31/18 16:04 [id number] 07/31/18 16:05 [id number] 07/31/18 16:04 PMRU Outcome: Pain/Comfort Outcome/Goals Demonstrates Knowledge and Use of Available Comfort Measures Achieves Acceptable Comfort/Pain Level as Determined by Patient/Condit Maintain Comfort Level Allowing Patient to Fully Participate in Rehab Progression Toward Outcome/Goals Progressing Respiratory - Improve/Maintain Start: 07/30/18 13:23 Freq: QSHIFT Status: Active Target: Protocol: Activity Type Activity Date Activity User E-Sign Co-Sign Detail Recorded Client Recorded Date Recorded By Document 07/31/18 16:04 [id number] 07/31/18 16:05 [id number] 07/31/18 16:04 PMRU Outcome: Respiratory Does Patient Have a Trach No Outcome/Goals Maintain/ Improve O2 Sat per MD Order Maintain/ Improve Activity Tolerance Progression Toward Outcome/Goals Progressing Safety- Improve/Maintain Start: 07/30/18 13:23 Freq: QSHIFT Status: Active Target: Protocol: Activity Type Activity Date Activity User E-Sign Co-Sign Detail Recorded Client Recorded Date Recorded By Document 07/31/18 16:04 [id number] 07/31/18 16:05 [id number] 07/31/18 16:04 PMRU Outcome: Safety Outcome/Goals Remain Free of Injury or Harm Cooperates with Safety Measures for Least Restrictive Environment Prevent Falls/ Injury Progression Toward Outcome/Goals Progressing Skin- Improve/Maintain Start: 07/30/18 13:23 Freq: QSHIFT Status: Active Target: Protocol: Activity Type Activity Date Activity User E-Sign Co-Sign Detail Recorded Client Recorded Date Recorded By Document 07/31/18 16:04 [id number] 07/31/18 16:05 [id number] 07/31/18 16:04 PMRU Outcome: Skin Skin Risk Level Medium Skin Orders Spenco Boots Turn/Position q2hr While in Bed Outcome/Goals Maintain/ Improve Skin Intergrity Surgical Incisions Healing Progression Toward Outcome/Goals Progressing Medicine Note: Length of Stay: 6 weeks Anticipated Discharge Destination: Home Tentative Discharge Date: 09/12/18 Discharged to: home?
[2018-08-01] MEDS: Enoxaparin(*) 40 MG/0.4 ML SYR SUBCUT SCH (13:05)
--- NOTE | 2018-08-01 15:33 | CONSULT ---
Subjective Date of Service: 08/01/18 Interval History: Mr. Seaman is a 73 yo male with PMH significant for COPD with chronic hypoxic respiratory failure on 2L O2 via NC, small cell lung cancer s/p chemo and radiation, hx alcohol abuse, HTN, GERD, constipation and urinary incontinence, who was admitted to the inpatient rehabilitation unit for a right hip fracture. He underwent a right hip IM nail on 07/26/18. He was noted to have erythema to the right heel on 07/26/18 while on the surgical unit postoperative. Patient seen and examined at bedside. Family History: Unchanged from Admission Social History: Unchanged from Admission Past Medical History: Unchanged from Admission Review of Systems - Measurements Intake and Output: Intake and Output Last 24 Hours 07/30/18 07/31/18 08/01/18 08/02/18 06:59 06:59 06:59 06:59 Intake Total 480 600 0 Output Total 1100 725 75 Balance -620 -125 -75 Weight 194 lb Intake: Oral 480 600 0 Output: Urine 1100 725 75 Other: Estimated Void Small # Bowel Movements 1 Estimated Stool Amount Medium # Voids 1 1 1 - Review of Systems Constitutional Symptoms: Negative: Fever, Other - Chills Musculoskeletal: Positive: Other - Pain in the right heel Objective Active Medications: Acetaminophen (Tylenol Tab*) 650 mg PO Q6H PRN Reason: FEVER > 101 Al Hydrox/Mg Hydrox/Simethicone (Maalox Plus*) 30 ml PO Q6H PRN Reason: INDIGESTION Albuterol (Ventolin Hfa Inhaler*) 2 puff INH Q6H PRN Reason: SOB/WHEEZING Bisacodyl (Dulcolax Supp*) 10 mg [place] DAILY PRN Reason: CONSTIPATION Cholecalciferol (Vitamin D Tab*) 2,000 units PO DAILY SUNDEEP Docusate Sodium (Colace Cap*) 100 mg PO BID SUNDEEP Enoxaparin Sodium (Lovenox(*)) 40 mg SUBCUT Q24H SUNDEEP Magnesium Hydroxide (Milk Of Magnesia Liq*) 30 ml PO Q6H PRN Reason: CONSTIPATION Magnesium Oxide (Magox 400 Tab*) 800 mg PO DAILY SUNDEEP Methocarbamol (Robaxin Tab*) 750 mg PO QID PRN Reason: muscle spasm Mometasone Furoate/Formoterol Fumar (Dulera 200/5 Mdi*) 2 puff INH BID SUNDEEP Oxycodone/Acetaminophen (Percocet 5/325 Tab*) 1 tab PO Q4H PRN Reason: PAIN Oxycodone/Acetaminophen (Percocet 5/325 Tab*) 2 tab PO Q4H PRN Reason: PAIN Pantoprazole Sodium (Protonix Tab*) 40 mg PO DAILY SUNDEEP Polyethylene Glycol/Electrolytes (Miralax*) 17 gm PO DAILY PRN Reason: CONSTIPATION Senna (Senokot Tab*) 2 tab PO BEDTIME PRN Reason: CONSTIPATION Vital Signs 08/01/18 05:00 Temperature 97.6 F Pulse Rate 61 Respiratory 16 Rate Blood Pressure 138/68 (mmHg) Blood Pressure 91 Mean O2 Sat by Pulse 98 Oximetry Patient on Room No Air Oxygen Devices in Use Now: Nasal Cannula - 2L Appearance: NAD, sitting up in a chair Ears/Nose/Mouth/Throat: Mucous Membranes Moist Respiratory: Symmetrical Chest Expansion and Respiratory Effort Skin: - - See skin note below Neurological: Alert and Oriented x 3 Nutrition: Taking PO's Result Diagrams: 07/31/18 05:37 07/31/18 05:37 Skin Deviation Note - Skin Deviation Findings Right heel - There is a nonblanchable area, with a deep purplish discoloration. This area measures, 3.5 cm x 2.7 cm. The skin is intact, there is no drainage. The surrounding skin is intact. Assessment/Plan: Mr. Seaman is a 73 yo male with PMH significant for COPD with chronic hypoxic respiratory failure on 2L O2 via NC, small cell lung cancer s/p chemo and radiation, hx alcohol abuse, HTN, GERD, consipation and urinary incontinence, who was admitted to the inpatient rehabilitation unit for a right hip fracture. He underwent a right hip IM nail on 07/26/18. 1. Right heel deep tissue injury. Recommend keeping heels elevated. Use caution as to not have pressure in other locations on the posterior legs or feet to prevent further skin injury. 2. Right hip fracture, S/P right hip IM nail. 3. Diet. Regular diet. 4. Code Status. Full Code. 5. Disposition. Disposition per primary team. TIME SPENT: Time for this wound consultation was 20 minutes and 10 minutes was spent with the patient discussing past medical history; assessing the skin, measuring, and photographing the skin injury; discussing skin pressure prevention measures. Wound Problem/Plan Is Patient a Wound Clinic Patient: No Attending: Radha Kline
[2018-08-01] MEDS: Albuterol HFA INHALER* 8 gm MDI INH PRN (19:20)
--- NOTE | 2018-08-01 19:42 | PN ---
Progress Note Date of Service: 08/01/18 Note: KORIN GUZMAN was visited. Therapy notes read and reviewed. He was discussed in interdisciplinary team rounds. He is having a hard time with TTWB status. Current Medications: Active Medications Generic Name Dose Route Start Last Admin Trade Name Freq PRN Reason Stop Dose Admin Acetaminophen 650 mg 07/30/18 09:54 Tylenol Tab* PO Q6H PRN FEVER > 101 Al Hydrox/Mg Hydrox/Simethicone 30 ml 07/30/18 09:54 Maalox Plus* PO Q6H PRN INDIGESTION Albuterol 2 puff 07/30/18 10:13 08/01/18 19:20 Ventolin Hfa Inhaler* INH 2 puff Q6H PRN Administration SOB/WHEEZING Bisacodyl 10 mg 07/30/18 09:54 Dulcolax Supp* NM DAILY PRN CONSTIPATION Cholecalciferol 2,000 units 08/01/18 09:00 08/01/18 08:57 Vitamin D Tab* PO 2,000 units DAILY SUNDEEP Administration Docusate Sodium 100 mg 07/30/18 21:00 08/01/18 08:58 Colace Cap* PO 100 mg BID SUNDEEP Administration Enoxaparin Sodium 40 mg 07/30/18 12:00 08/01/18 13:05 Lovenox(*) SUBCUT 40 mg Q24H SUNDEEP Administration Magnesium Hydroxide 30 ml 07/30/18 09:54 Milk Of Magnesia Liq* PO Q6H PRN CONSTIPATION Magnesium Oxide 800 mg 07/31/18 09:00 08/01/18 08:59 Magox 400 Tab* PO 800 mg DAILY SUNDEEP Administration Methocarbamol 750 mg 07/30/18 10:12 Robaxin Tab* PO QID PRN muscle spasm Mometasone Furoate/Formoterol Fumar 2 puff 07/30/18 21:00 08/01/18 09:00 Dulera 200/5 Mdi* INH 2 puff BID SUNDEEP Administration Oxycodone/Acetaminophen 1 tab 07/30/18 10:07 08/01/18 10:29 Percocet 5/325 Tab* PO 1 tab Q4H PRN Administration PAIN Oxycodone/Acetaminophen 2 tab 07/30/18 10:21 08/01/18 00:16 Percocet 5/325 Tab* PO 2 tab Q4H PRN Administration PAIN Pantoprazole Sodium 40 mg 07/31/18 09:00 08/01/18 08:59 Protonix Tab* PO 40 mg DAILY SUNDEEP Administration Polyethylene Glycol/Electrolytes 17 gm 07/30/18 10:05 Miralax* PO DAILY PRN CONSTIPATION Senna 2 tab 07/30/18 09:54 07/31/18 20:02 Senokot Tab* PO 2 tab BEDTIME PRN Administration CONSTIPATION Vital Signs: Vital Signs Temp Pulse Resp BP Pulse Ox 98.5 F 73 22 133/72 99 08/01/18 16:15 08/01/18 16:15 08/01/18 16:15 08/01/18 16:15 08/01/18 16:15 Exam: GENERAL: In no distress LUNGS: Mostly clear bilaterallly HEART: reg rhythm ABDOMEN: Soft, +BS EXTREMITIES: Dressing on right leg with scant drainage NEUROLOGIC: Alert, oriented. Moves all 4 extremities. Can dorsiflex right foot Assessment/Plan: 1. Right Hip Fracture: TTWB on RLE. PT/OT 2. COPD: Dulera/Albuterol 3. Small Cell Lung Cancer: Stable 4. GERD: Protonix 5. DVT Prophylaxis: Lovenox 6. Advance Directives: Full Code. 7. 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 [employer]/OT 08/01/18 19:43
[2018-08-02] MEDS: oxyCODONE/Acetamin 5/325 MG* TAB PO PRN ×3 (02:05→20:09)
[2018-08-02] MEDS: Docusate CAP* 100 MG PO SCH ×2 (07:27→20:09)
[2018-08-02] MEDS: Cholecalciferol TAB* 1000 UNITS PO SCH (07:27)
[2018-08-02] MEDS: Pantoprazole TAB * 40 MG TAB PO SCH (07:28)
[2018-08-02] MEDS: Magnesium Oxide TAB* 400 MG PO SCH (07:28)
[2018-08-02] MEDS: Mometasone/Formoter 200/5 MDI INH SCH ×2 (07:28→20:11)
[2018-08-02] MEDS: Enoxaparin(*) 40 MG/0.4 ML SYR SUBCUT SCH (13:59)
--- NOTE | 2018-08-02 21:46 | PN ---
Progress Note Date of Service: 08/02/18 Note: KORIN GUZMAN was visited. Therapy notes read and reviewed. Slow to mobilize and hard for him to maintain TTWB status. Current Medications: Active Medications Generic Name Dose Route Start Last Admin Trade Name Freq PRN Reason Stop Dose Admin Acetaminophen 650 mg 07/30/18 09:54 Tylenol Tab* PO Q6H PRN FEVER > 101 Al Hydrox/Mg Hydrox/Simethicone 30 ml 07/30/18 09:54 Maalox Plus* PO Q6H PRN INDIGESTION Albuterol 2 puff 07/30/18 10:13 08/01/18 19:20 Ventolin Hfa Inhaler* INH 2 puff Q6H PRN Administration SOB/WHEEZING Bisacodyl 10 mg 07/30/18 09:54 Dulcolax Supp* [place] DAILY PRN CONSTIPATION Cholecalciferol 2,000 units 08/01/18 09:00 08/02/18 07:27 Vitamin D Tab* PO 2,000 units DAILY SUNDEEP Administration Docusate Sodium 100 mg 07/30/18 21:00 08/02/18 20:09 Colace Cap* PO 100 mg BID SUNDEEP Administration Enoxaparin Sodium 40 mg 08/03/18 09:00 Lovenox(*) SUBCUT DAILY SUNDEEP Magnesium Hydroxide 30 ml 07/30/18 09:54 Milk Of Magnesia Liq* PO Q6H PRN CONSTIPATION Magnesium Oxide 800 mg 07/31/18 09:00 08/02/18 07:28 Magox 400 Tab* PO 800 mg DAILY SUNDEEP Administration Methocarbamol 750 mg 07/30/18 10:12 Robaxin Tab* PO QID PRN muscle spasm Mometasone Furoate/Formoterol Fumar 2 puff 07/30/18 21:00 08/02/18 20:11 Dulera 200/5 Mdi* INH 2 puff BID SUNDEEP Administration Oxycodone/Acetaminophen 1 tab 07/30/18 10:07 08/01/18 10:29 Percocet 5/325 Tab* PO 1 tab Q4H PRN Administration PAIN Oxycodone/Acetaminophen 2 tab 07/30/18 10:21 08/02/18 20:09 Percocet 5/325 Tab* PO 2 tab Q4H PRN Administration PAIN Pantoprazole Sodium 40 mg 07/31/18 09:00 08/02/18 07:28 Protonix Tab* PO 40 mg DAILY SUNDEEP Administration Polyethylene Glycol/Electrolytes 17 gm 07/30/18 10:05 Miralax* PO DAILY PRN CONSTIPATION Senna 2 tab 07/30/18 09:54 07/31/18 20:02 Senokot Tab* PO 2 tab BEDTIME PRN Administration CONSTIPATION Vital Signs: Vital Signs Temp Pulse Resp BP Pulse Ox 98.5 F 68 22 132/74 96 08/02/18 16:58 08/02/18 16:58 08/02/18 20:09 08/02/18 16:58 08/02/18 17:09 Exam: GENERAL: In no distress LUNGS: Mostly clear bilaterallly HEART: reg rhythm ABDOMEN: Soft, +BS EXTREMITIES: Dressing on right leg with scant drainage NEUROLOGIC: Alert, oriented. Moves all 4 extremities. Can dorsiflex right foot Assessment/Plan: 1. Right Hip Fracture: TTWB on RLE. PT/OT 2. COPD: Dulera/Albuterol 3. Small Cell Lung Cancer: Stable 4. GERD: Protonix 5. DVT Prophylaxis: Lovenox 6. Advance Directives: Full Code. 7. 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 [employer]/OT 08/02/18 21:47
[2018-08-03] MEDS: Albuterol HFA INHALER* 8 gm MDI INH PRN (01:06)
[2018-08-03] MEDS: Cholecalciferol TAB* 1000 UNITS PO SCH (09:18)
[2018-08-03] MEDS: Docusate CAP* 100 MG PO SCH ×2 (09:19→20:16)
[2018-08-03] MEDS: Enoxaparin(*) 40 MG/0.4 ML SYR SUBCUT SCH (09:19)
[2018-08-03] MEDS: Magnesium Oxide TAB* 400 MG PO SCH (09:19)
[2018-08-03] MEDS: Mometasone/Formoter 200/5 MDI INH SCH ×2 (09:19→20:18)
[2018-08-03] MEDS: Pantoprazole TAB * 40 MG TAB PO SCH (09:20)
[2018-08-03] MEDS: oxyCODONE/Acetamin 5/325 MG* TAB PO PRN (09:22)
[2018-08-03] MEDS: Acetaminophen TAB* 325 MG PO PRN ×2 (10:35→20:16)
--- NOTE | 2018-08-03 16:05 | PN ---
Progress Note Date of Service: 08/03/18 Note: KORIN GUZMAN was visited. Therapy notes read and reviewed. It remains quite hard for him to mobilize. He is doing okay otherwise Current Medications: Active Medications Generic Name Dose Route Start Last Admin Trade Name Freq PRN Reason Stop Dose Admin Acetaminophen 650 mg 07/30/18 09:54 08/03/18 10:35 Tylenol Tab* PO 650 mg Q6H PRN Administration FEVER > 101 Al Hydrox/Mg Hydrox/Simethicone 30 ml 07/30/18 09:54 Maalox Plus* PO Q6H PRN INDIGESTION Albuterol 2 puff 07/30/18 10:13 08/03/18 01:06 Ventolin Hfa Inhaler* INH 2 puff Q6H PRN Administration SOB/WHEEZING Bisacodyl 10 mg 07/30/18 09:54 Dulcolax Supp* [place] DAILY PRN CONSTIPATION Cholecalciferol 2,000 units 08/01/18 09:00 08/03/18 09:18 Vitamin D Tab* PO 2,000 units DAILY SUNDEEP Administration Docusate Sodium 100 mg 07/30/18 21:00 08/03/18 09:19 Colace Cap* PO 100 mg BID SUNDEEP Administration Enoxaparin Sodium 40 mg 08/03/18 09:00 08/03/18 09:19 Lovenox(*) SUBCUT 40 mg DAILY SUNDEEP Administration Magnesium Hydroxide 30 ml 07/30/18 09:54 Milk Of Magnesia Liq* PO Q6H PRN CONSTIPATION Magnesium Oxide 800 mg 07/31/18 09:00 08/03/18 09:19 Magox 400 Tab* PO 800 mg DAILY SUNDEEP Administration Methocarbamol 750 mg 07/30/18 10:12 Robaxin Tab* PO QID PRN muscle spasm Mometasone Furoate/Formoterol Fumar 2 puff 07/30/18 21:00 08/03/18 09:19 Dulera 200/5 Mdi* INH 2 puff BID SUNDEEP Administration Oxycodone/Acetaminophen 1 tab 07/30/18 10:07 08/01/18 10:29 Percocet 5/325 Tab* PO 1 tab Q4H PRN Administration PAIN Oxycodone/Acetaminophen 2 tab 07/30/18 10:21 08/03/18 09:22 Percocet 5/325 Tab* PO 2 tab Q4H PRN Administration PAIN Pantoprazole Sodium 40 mg 07/31/18 09:00 08/03/18 09:20 Protonix Tab* PO 40 mg DAILY SUNDEEP Administration Polyethylene Glycol/Electrolytes 17 gm 07/30/18 10:05 Miralax* PO DAILY PRN CONSTIPATION Senna 2 tab 07/30/18 09:54 07/31/18 20:02 Senokot Tab* PO 2 tab BEDTIME PRN Administration CONSTIPATION Vital Signs: Vital Signs Temp Pulse Resp BP Pulse Ox 98.5 F 68 14 132/74 96 08/02/18 16:58 08/02/18 16:58 08/03/18 15:38 08/02/18 16:58 08/02/18 17:09 Exam: GENERAL: In no distress LUNGS: Mostly clear bilaterallly HEART: reg rhythm ABDOMEN: Soft, +BS EXTREMITIES: Dressing on right leg with scant drainage NEUROLOGIC: Alert, oriented. Moves all 4 extremities. Can dorsiflex right foot Assessment/Plan: 1. Right Hip Fracture: TTWB on RLE. PT/OT 2. COPD: Dulera/Albuterol 3. Small Cell Lung Cancer: Stable 4. GERD: Protonix 5. DVT Prophylaxis: Lovenox 6. Advance Directives: Full Code. 7. 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
[2018-08-03 17:39] LABS: Urine Appearance Clear; Urine Bacteria Absent (Absent); Urine Bilirubin Negative (Negative); Urine Blood Negative (Negative); Urine Color Yellow; Urine Glucose Negative (Negative); Urine Ketones Negative (Negative); Urine Nitrite Negative (Negative); Urine Protein Negative (Negative); Urine Red Blood Cell Trace(0-2/hpf) (Absent); Urine Specific Gravity 1.019 (1.010-1.030); Urine Urobilinogen Negative (Negative); Urine White Blood Cell 2+(11-20/hpf) (Absent)
[2018-08-03] MEDS: Senna TAB 8.6 mg* TAB PO PRN (20:16)
[2018-08-04] MEDS: Magnesium Oxide TAB* 400 MG PO SCH (09:18)
[2018-08-04] MEDS: Acetaminophen TAB* 325 MG PO PRN (09:18)
[2018-08-04] MEDS: Docusate CAP* 100 MG PO SCH ×2 (09:19→09:20)
[2018-08-04] MEDS: Cholecalciferol TAB* 1000 UNITS PO SCH (09:19)
[2018-08-04] MEDS: Enoxaparin(*) 40 MG/0.4 ML SYR SUBCUT SCH (09:19)
[2018-08-04] MEDS: Pantoprazole TAB * 40 MG TAB PO SCH (09:19)
[2018-08-04] MEDS: Mometasone/Formoter 200/5 MDI INH SCH ×2 (09:44→21:31)
[2018-08-04] MEDS: oxyCODONE/Acetamin 5/325 MG* TAB PO PRN ×2 (12:59→21:30)
[2018-08-04] MEDS ORDERED: Docusate CAP* 100 MG PO PRN (15:08)
--- NOTE | 2018-08-04 17:34 | PN ---
Progress Note Date of Service: 08/04/18 Note: KORIN GUZMAN was visited. Therapy notes read and reviewed. He had some diarrhea earlier. I will make his laxatives PRN. Otherwise doing ok Current Medications: Active Medications Generic Name Dose Route Start Last Admin Trade Name Freq PRN Reason Stop Dose Admin Acetaminophen 650 mg 07/30/18 09:54 08/04/18 09:18 Tylenol Tab* PO 650 mg Q6H PRN Administration FEVER > 101 Al Hydrox/Mg Hydrox/Simethicone 30 ml 07/30/18 09:54 Maalox Plus* PO Q6H PRN INDIGESTION Albuterol 2 puff 07/30/18 10:13 08/03/18 01:06 Ventolin Hfa Inhaler* INH 2 puff Q6H PRN Administration SOB/WHEEZING Bisacodyl 10 mg 07/30/18 09:54 Dulcolax Supp* [place] DAILY PRN CONSTIPATION Cholecalciferol 2,000 units 08/01/18 09:00 08/04/18 09:19 Vitamin D Tab* PO 2,000 units DAILY SUNDEEP Administration Docusate Sodium 100 mg 08/04/18 15:08 Colace Cap* PO BID PRN CONSTIPATION Enoxaparin Sodium 40 mg 08/03/18 09:00 08/04/18 09:19 Lovenox(*) SUBCUT 40 mg DAILY SUNDEEP Administration Magnesium Hydroxide 30 ml 07/30/18 09:54 Milk Of Magnesia Liq* PO Q6H PRN CONSTIPATION Magnesium Oxide 800 mg 07/31/18 09:00 08/04/18 09:18 Magox 400 Tab* PO 800 mg DAILY SUNDEEP Administration Methocarbamol 750 mg 07/30/18 10:12 Robaxin Tab* PO QID PRN muscle spasm Mometasone Furoate/Formoterol Fumar 2 puff 07/30/18 21:00 08/04/18 09:44 Dulera 200/5 Mdi* INH 2 puff BID SUNDEEP Administration Oxycodone/Acetaminophen 1 tab 07/30/18 10:07 08/01/18 10:29 Percocet 5/325 Tab* PO 1 tab Q4H PRN Administration PAIN Oxycodone/Acetaminophen 2 tab 07/30/18 10:21 08/04/18 12:59 Percocet 5/325 Tab* PO 2 tab Q4H PRN Administration PAIN Pantoprazole Sodium 40 mg 07/31/18 09:00 08/04/18 09:19 Protonix Tab* PO 40 mg DAILY SUNDEEP Administration Polyethylene Glycol/Electrolytes 17 gm 07/30/18 10:05 Miralax* PO DAILY PRN CONSTIPATION Senna 2 tab 07/30/18 09:54 08/03/18 20:16 Senokot Tab* PO 2 tab BEDTIME PRN Administration CONSTIPATION Vital Signs: Vital Signs Temp Pulse Resp BP Pulse Ox 98.2 F 60 22 130/63 94 08/04/18 16:00 08/04/18 16:00 08/04/18 16:00 08/04/18 16:00 08/04/18 16:00 Lab Results: Laboratory Results - last 24 hr 08/03/18 17:10 Urine Color Yellow Urine Appearance Clear Urine pH 5.0 Ur Specific Val[place] 1.019 Urine Protein Negative Urine Ketones Negative Urine Blood Negative Urine Nitrate Negative Urine Bilirubin Negative Urine Urobilinogen Negative Ur Leukocyte Esterase Trace A Urine WBC (Auto) 2+(11-20/hpf) A Urine RBC (Auto) Trace(0-2/hpf) Urine Bacteria Absent Urine Glucose Negative Exam: GENERAL: In no distress LUNGS: Mostly clear bilaterallly HEART: reg rhythm ABDOMEN: Soft, +BS EXTREMITIES: Dressing on right leg with scant drainage NEUROLOGIC: Alert, oriented. Moves all 4 extremities. Can dorsiflex right foot Assessment/Plan: 1. Right Hip Fracture: TTWB on RLE. PT/OT 2. COPD: Dulera/Albuterol 3. Small Cell Lung Cancer: Stable 4. GERD: Protonix 5. DVT Prophylaxis: Lovenox 6. Advance Directives: Full Code. 7. 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
[2018-08-05] MEDS: Mometasone/Formoter 200/5 MDI INH SCH ×2 (08:13→19:48)
[2018-08-05] MEDS: Magnesium Oxide TAB* 400 MG PO SCH (08:14)
[2018-08-05] MEDS: Pantoprazole TAB * 40 MG TAB PO SCH (08:14)
[2018-08-05] MEDS: Cholecalciferol TAB* 1000 UNITS PO SCH (08:14)
[2018-08-05] MEDS: oxyCODONE/Acetamin 5/325 MG* TAB PO PRN (08:15)
[2018-08-05] MEDS: Albuterol HFA INHALER* 8 gm MDI INH PRN (08:16)
[2018-08-05] MEDS: Enoxaparin(*) 40 MG/0.4 ML SYR SUBCUT SCH (08:21)
[2018-08-05] MEDS ORDERED: Amoxicillin PO (*) 250 MG CAP PO ONE (21:46)
--- NOTE | 2018-08-05 21:47 | PN ---
Progress Note Date of Service: 08/05/18 Note: KORIN GUZMAN was visited. Therapy notes read and reviewed. His urine culture grew out >100K Staph Epi. Will treat with 5 days of Amox Current Medications: Active Medications Generic Name Dose Route Start Last Admin Trade Name Freq PRN Reason Stop Dose Admin Acetaminophen 650 mg 07/30/18 09:54 08/04/18 09:18 Tylenol Tab* PO 650 mg Q6H PRN Administration FEVER > 101 Al Hydrox/Mg Hydrox/Simethicone 30 ml 07/30/18 09:54 Maalox Plus* PO Q6H PRN INDIGESTION Albuterol 2 puff 07/30/18 10:13 08/05/18 08:16 Ventolin Hfa Inhaler* INH 2 puff Q6H PRN Administration SOB/WHEEZING Amoxicillin 250 mg 08/06/18 09:00 Amoxicillin Po (*) PO TID SUNDEEP Amoxicillin 250 mg 08/05/18 21:46 Amoxicillin Po (*) PO 08/05/18 21:47 ONCE ONE Bisacodyl 10 mg 07/30/18 09:54 Dulcolax Supp* [place] DAILY PRN CONSTIPATION Cholecalciferol 2,000 units 08/01/18 09:00 08/05/18 08:14 Vitamin D Tab* PO 2,000 units DAILY SUNDEEP Administration Docusate Sodium 100 mg 08/04/18 15:08 Colace Cap* PO BID PRN CONSTIPATION Enoxaparin Sodium 40 mg 08/03/18 09:00 08/05/18 08:21 Lovenox(*) SUBCUT 40 mg DAILY SUNDEEP Administration Magnesium Hydroxide 30 ml 07/30/18 09:54 Milk Of Magnesia Liq* PO Q6H PRN CONSTIPATION Magnesium Oxide 800 mg 07/31/18 09:00 08/05/18 08:14 Magox 400 Tab* PO 800 mg DAILY SUNDEEP Administration Methocarbamol 750 mg 07/30/18 10:12 Robaxin Tab* PO QID PRN muscle spasm Mometasone Furoate/Formoterol Fumar 2 puff 07/30/18 21:00 08/05/18 19:48 Dulera 200/5 Mdi* INH 2 puff BID SUNDEEP Administration Oxycodone/Acetaminophen 1 tab 07/30/18 10:07 08/01/18 10:29 Percocet 5/325 Tab* PO 1 tab Q4H PRN Administration PAIN Oxycodone/Acetaminophen 2 tab 07/30/18 10:21 08/05/18 08:15 Percocet 5/325 Tab* PO 2 tab Q4H PRN Administration PAIN Pantoprazole Sodium 40 mg 07/31/18 09:00 08/05/18 08:14 Protonix Tab* PO 40 mg DAILY SUNDEEP Administration Polyethylene Glycol/Electrolytes 17 gm 07/30/18 10:05 Miralax* PO DAILY PRN CONSTIPATION Senna 2 tab 07/30/18 09:54 08/03/18 20:16 Senokot Tab* PO 2 tab BEDTIME PRN Administration CONSTIPATION Vital Signs: Vital Signs Temp Pulse Resp BP Pulse Ox 98.0 F 59 18 131/67 95 08/05/18 16:25 08/05/18 16:25 08/05/18 19:46 08/05/18 16:25 08/05/18 20:17 Exam: GENERAL: In no distress LUNGS: Mostly clear bilaterallly HEART: reg rhythm ABDOMEN: Soft, +BS EXTREMITIES: Dressing on right leg with scant drainage NEUROLOGIC: Alert, oriented. Moves all 4 extremities. Can dorsiflex right foot Assessment/Plan: 1. Right Hip Fracture: TTWB on RLE. PT/OT 2. COPD: Dulera/Albuterol 3. Small Cell Lung Cancer: Stable 4. GERD: Protonix 5. DVT Prophylaxis: Lovenox 6. Advance Directives: Full Code. 7. 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 Urinary Tract Infection: Amoxicillin day 1/5 08/05/18 21:47
[2018-08-06] MEDS: oxyCODONE/Acetamin 5/325 MG* TAB PO PRN ×2 (03:25→10:22)
[2018-08-06] MEDS: Amoxicillin PO (*) 250 MG CAP PO SCH ×3 (10:19→21:28)
[2018-08-06] MEDS: Cholecalciferol TAB* 1000 UNITS PO SCH (10:20)
[2018-08-06] MEDS: Enoxaparin(*) 40 MG/0.4 ML SYR SUBCUT SCH (10:20)
[2018-08-06] MEDS: Magnesium Oxide TAB* 400 MG PO SCH (10:20)
[2018-08-06] MEDS: Pantoprazole TAB * 40 MG TAB PO SCH (10:21)
[2018-08-06] MEDS: Mometasone/Formoter 200/5 MDI INH SCH ×2 (10:21→21:33)
--- NOTE | 2018-08-06 12:31 | PN ---
Progress Note Date of Service: 08/06/18 Note: KORIN GUZMAN was visited. Nursing notes read and reviewed. He has no complaints today Current Medications: Active Medications Generic Name Dose Route Start Last Admin Trade Name Freq PRN Reason Stop Dose Admin Acetaminophen 650 mg 07/30/18 09:54 08/04/18 09:18 Tylenol Tab* PO 650 mg Q6H PRN Administration FEVER > 101 Al Hydrox/Mg Hydrox/Simethicone 30 ml 07/30/18 09:54 Maalox Plus* PO Q6H PRN INDIGESTION Albuterol 2 puff 07/30/18 10:13 08/05/18 08:16 Ventolin Hfa Inhaler* INH 2 puff Q6H PRN Administration SOB/WHEEZING Amoxicillin 250 mg 08/06/18 09:00 08/06/18 10:19 Amoxicillin Po (*) PO 250 mg TID SUNDEEP Administration Bisacodyl 10 mg 07/30/18 09:54 Dulcolax Supp* [place] DAILY PRN CONSTIPATION Cholecalciferol 2,000 units 08/01/18 09:00 08/06/18 10:20 Vitamin D Tab* PO 2,000 units DAILY SUNDEEP Administration Docusate Sodium 100 mg 08/04/18 15:08 Colace Cap* PO BID PRN CONSTIPATION Enoxaparin Sodium 40 mg 08/03/18 09:00 08/06/18 10:20 Lovenox(*) SUBCUT 40 mg DAILY SUNDEEP Administration Magnesium Hydroxide 30 ml 07/30/18 09:54 Milk Of Magnesia Liq* PO Q6H PRN CONSTIPATION Magnesium Oxide 800 mg 07/31/18 09:00 08/06/18 10:20 Magox 400 Tab* PO 800 mg DAILY SUNDEEP Administration Methocarbamol 750 mg 07/30/18 10:12 Robaxin Tab* PO QID PRN muscle spasm Mometasone Furoate/Formoterol Fumar 2 puff 07/30/18 21:00 08/06/18 10:21 Dulera 200/5 Mdi* INH 2 puff BID SUNDEEP Administration Oxycodone/Acetaminophen 1 tab 07/30/18 10:07 08/01/18 10:29 Percocet 5/325 Tab* PO 1 tab Q4H PRN Administration PAIN Oxycodone/Acetaminophen 2 tab 07/30/18 10:21 08/06/18 10:22 Percocet 5/325 Tab* PO 2 tab Q4H PRN Administration PAIN Pantoprazole Sodium 40 mg 07/31/18 09:00 08/06/18 10:21 Protonix Tab* PO 40 mg DAILY SUNDEEP Administration Polyethylene Glycol/Electrolytes 17 gm 07/30/18 10:05 Miralax* PO DAILY PRN CONSTIPATION Senna 2 tab 07/30/18 09:54 08/03/18 20:16 Senokot Tab* PO 2 tab BEDTIME PRN Administration CONSTIPATION Vital Signs: Vital Signs Temp Pulse Resp BP Pulse Ox 98.3 F 59 14 152/78 98 08/06/18 05:58 08/06/18 05:58 08/06/18 10:22 08/06/18 05:58 08/06/18 05:58 Exam: GENERAL: In no distress LUNGS: Mostly clear bilaterallly HEART: reg rhythm ABDOMEN: Soft, +BS EXTREMITIES: Dressing on right leg with scant drainage NEUROLOGIC: Alert, oriented. Moves all 4 extremities. Can dorsiflex right foot Assessment/Plan: 1. Right Hip Fracture: TTWB on RLE. PT/OT 2. COPD: Dulera/Albuterol 3. Small Cell Lung Cancer: Stable 4. GERD: Protonix 5. DVT Prophylaxis: Lovenox 6. Advance Directives: Full Code. 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 Urinary Tract Infection: Amoxicillin day 2/5 08/06/18 12:32
[2018-08-06] MEDS: Senna TAB 8.6 mg* TAB PO PRN (21:35)
[2018-08-07 05:22] LABS: ABS Basophils 0.1 10^3/ul (0-0.2); ABS Eosinophils 0.2 10^3/ul (0-0.6); ABS Lymphocytes 1.5 10^3/ul (1.0-4.8); ABS Monocytes 0.7 10^3/ul (0-0.8); ABS Neutrophils 6.2 10^3/ul (1.5-7.7); Hematocrit 34 % (42-52); Hemoglobin 11.4 g/dL (14.0-18.0); Lymphocyte % 17.4 %; Mean Corpuscular HGB Conc 34 g/dL (31-36); Mean Corpuscular Hemoglobin 27 pg (27-31); Mean Corpuscular Volume 80 fL (80-94); Mean Platelet Volume 6.6 fL (7.4-10.4); Nucleated Red Blood Cells % 0.1; Platelet Count 386 10^3/uL (150-450); Red Blood Count 4.25 10^6 /uL (4.18-5.48); Red Cell Distribution Width 16 % (10-15); White Blood Count 8.7 10^3/uL (3.5-10.8)
[2018-08-07 05:41] LABS: Albumin 3.4 g/dL (3.2-5.2); Albumin/Globulin Ratio 1.2 (1-3); Calcium 9.1 mg/dL (8.6-10.3); EGFR African American 107.2 (>60); EGFR Non-African American 88.6 (>60); Globulin 2.8 g/dL (2-4); Potassium 3.8 mmol/L (3.5-5.0); Total Bilirubin 0.5 mg/dL (0.2-1.0); Total Protein 6.2 g/dL (6.4-8.9)
[2018-08-07] MEDS: Cholecalciferol TAB* 1000 UNITS PO SCH (10:31)
[2018-08-07] MEDS: Amoxicillin PO (*) 250 MG CAP PO SCH ×3 (10:31→20:57)
[2018-08-07] MEDS: Enoxaparin(*) 40 MG/0.4 ML SYR SUBCUT SCH (10:32)
[2018-08-07] MEDS: Magnesium Oxide TAB* 400 MG PO SCH (10:32)
[2018-08-07] MEDS: Pantoprazole TAB * 40 MG TAB PO SCH (10:33)
[2018-08-07] MEDS: Mometasone/Formoter 200/5 MDI INH SCH ×2 (10:33→20:58)
--- NOTE | 2018-08-07 17:31 | PN ---
Progress Note Date of Service: 08/07/18 Note: KORIN GUZMAN was visited. Therapy notes read and reviewed. Still having a hard time mobilizing and ding TTWB Current Medications: Active Medications Generic Name Dose Route Start Last Admin Trade Name Freq PRN Reason Stop Dose Admin Acetaminophen 650 mg 07/30/18 09:54 08/04/18 09:18 Tylenol Tab* PO 650 mg Q6H PRN Administration FEVER > 101 Al Hydrox/Mg Hydrox/Simethicone 30 ml 07/30/18 09:54 Maalox Plus* PO Q6H PRN INDIGESTION Albuterol 2 puff 07/30/18 10:13 08/05/18 08:16 Ventolin Hfa Inhaler* INH 2 puff Q6H PRN Administration SOB/WHEEZING Amoxicillin 250 mg 08/06/18 09:00 08/07/18 14:24 Amoxicillin Po (*) PO 250 mg TID SUNDEEP Administration Bisacodyl 10 mg 07/30/18 09:54 Dulcolax Supp* [place] DAILY PRN CONSTIPATION Cholecalciferol 2,000 units 08/01/18 09:00 08/07/18 10:31 Vitamin D Tab* PO 2,000 units DAILY SUNDEEP Administration Docusate Sodium 100 mg 08/04/18 15:08 08/06/18 21:35 Colace Cap* PO 100 mg BID PRN Administration CONSTIPATION Enoxaparin Sodium 40 mg 08/03/18 09:00 08/07/18 10:32 Lovenox(*) SUBCUT 40 mg DAILY SUNDEEP Administration Magnesium Hydroxide 30 ml 07/30/18 09:54 Milk Of Magnesia Liq* PO Q6H PRN CONSTIPATION Magnesium Oxide 800 mg 07/31/18 09:00 08/07/18 10:32 Magox 400 Tab* PO 800 mg DAILY SUNDEEP Administration Methocarbamol 750 mg 07/30/18 10:12 Robaxin Tab* PO QID PRN muscle spasm Mometasone Furoate/Formoterol Fumar 2 puff 07/30/18 21:00 08/07/18 10:33 Dulera 200/5 Mdi* INH 2 puff BID SUNDEEP Administration Oxycodone/Acetaminophen 1 tab 07/30/18 10:07 08/01/18 10:29 Percocet 5/325 Tab* PO 1 tab Q4H PRN Administration PAIN Oxycodone/Acetaminophen 2 tab 07/30/18 10:21 08/06/18 10:22 Percocet 5/325 Tab* PO 2 tab Q4H PRN Administration PAIN Pantoprazole Sodium 40 mg 07/31/18 09:00 08/07/18 10:33 Protonix Tab* PO 40 mg DAILY SUNDEEP Administration Polyethylene Glycol/Electrolytes 17 gm 07/30/18 10:05 Miralax* PO DAILY PRN CONSTIPATION Senna 2 tab 07/30/18 09:54 08/06/18 21:35 Senokot Tab* PO 2 tab BEDTIME PRN Administration CONSTIPATION Vital Signs: Vital Signs Temp Pulse Resp BP Pulse Ox 98.3 F 66 18 137/70 92 08/07/18 16:49 08/07/18 16:49 08/07/18 16:49 08/07/18 16:49 08/07/18 16:49 Lab Results: Laboratory Results - last 24 hr 08/07/18 08/07/18 05:13 05:13 WBC 8.7 RBC 4.25 Hgb 11.4 L Hct 34 L MCV 80 MCH 27 MCHC 34 RDW 16 H Plt Count 386 MPV 6.6 L Neut % (Auto) 72.0 Lymph % (Auto) 17.4 [place] % (Auto) 8.0 Eos % (Auto) 2.0 Baso % (Auto) 0.6 Absolute Neuts (auto) 6.2 Absolute Lymphs (auto) 1.5 Absolute Monos (auto) 0.7 Absolute Eos (auto) 0.2 Absolute Basos (auto) 0.1 Absolute Nucleated RBC 0.0 Nucleated RBC % 0.1 Sodium 136 Potassium 3.8 Chloride 102 Carbon Dioxide 28 Anion Gap 6 BUN 17 Creatinine 0.85 Est GFR ( Amer) 107.2 Est GFR (Non-Af Amer) 88.6 BUN/Creatinine Ratio 20.0 Glucose 111 H Calcium 9.1 Total Bilirubin 0.50 AST 15 ALT 30 Alkaline Phosphatase 69 Total Protein 6.2 L Albumin 3.4 Globulin 2.8 Albumin/Globulin Ratio 1.2 Exam: GENERAL: In no distress LUNGS: Mostly clear bilaterallly HEART: reg rhythm ABDOMEN: Soft, +BS EXTREMITIES: Dressing on right leg with scant drainage NEUROLOGIC: Alert, oriented. Moves all 4 extremities. Can dorsiflex right foot Assessment/Plan: 1. Right Hip Fracture: TTWB on RLE. PT/OT 2. COPD: Dulera/Albuterol/Oxygen 3. Small Cell Lung Cancer: Stable 4. GERD: Protonix 5. DVT Prophylaxis: Lovenox 6. Advance Directives: Full Code. 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 Urinary Tract Infection: Amoxicillin day 3/5 08/06/18 12:32 08/07/18 17:31
[2018-08-07] MEDS: Acetaminophen TAB* 325 MG PO PRN (21:43)
[2018-08-08] MEDS: Cholecalciferol TAB* 1000 UNITS PO SCH (08:26)
[2018-08-08] MEDS: Enoxaparin(*) 40 MG/0.4 ML SYR SUBCUT SCH (08:26)
[2018-08-08] MEDS: Amoxicillin PO (*) 250 MG CAP PO SCH ×3 (08:26→20:44)
[2018-08-08] MEDS: Magnesium Oxide TAB* 400 MG PO SCH (08:26)
[2018-08-08] MEDS: Pantoprazole TAB * 40 MG TAB PO SCH (08:27)
[2018-08-08] MEDS: Mometasone/Formoter 200/5 MDI INH SCH ×2 (08:27→20:46)
[2018-08-08] MEDS: oxyCODONE/Acetamin 5/325 MG* TAB PO PRN ×2 (08:29→20:45)
--- NOTE | 2018-08-08 12:45 | PMRUTEAM ---
PMRU: Team Meeting Current Status: Nursing: Current Status Skin Deviations [Right Heel] Wound Skin Deviations [Right Hip] Incision Skin Deviation Description [ unchanged from adm - heels floated on pillows Right Heel] continuously Skin Deviation Description [ liu in Right Hip] Wound Stage [Right Heel] II Physical Therapy: Current Status Bed Mobility Assistance 2 or More Person Assist Transfer Mobility Assistance 2 or More Person Assist Transfer/Bed Mobility Karen Lift Recommended Devices Ambulation Assistance Unable Ambulation Assistive Devices Rolling Walker Stairs Assistance Not Tested Stairs Recommended Devices One Rail,Two Rails Number of Stairs 13 Wheelchair Distance (ft) 150 Occupational Therapy: Current Status Upper Body Dressing Min Assist Lower Body Dressing Max Asst,2 Person Assist Bathing 2 Person Assist Toileting Total Assist,2 Person Assist Toilet Transfer Total Assist,2 Person Assist Shower Transfer Total Assist,2 Person Assist Eating Independent Rec Therapy: Current Status Summary of Assessment and Recreation Therapy assessment complete and pt. is Clinical Impression aware of services. Pt. identified with few interests but stated he enjoys his life and is open to continued leisure visits as well as pet therapy while on the unit. Treatment Goals Pt. will engage in leisure activities. Treatment Plan Provide recreation therapy and encourage involvement. Social Work: Current Status Discharge Plan return home with home care svs and family support Potential for Family Training pt's nephew is involved and supportive, though works during the day Anticipated Discharge Home Destination Anticipated Discharge will need a wheelchair ramp Destination Comment Discharge With home care svs and family support Nutrition: Current Status Monitoring pt s/p right femoral neck fx; OR 07/26/18. Regular diet is appropriate. Accepting 90-100% of meals, so adequate po intake. Weekly labs unremarkable. Last BMs 08/04 and 08/07; bowel meds in place and given appropriately. Appears to be meeting goals as outlined below. Speech: Current Status Assessment Patient has met his memory and problem solving goals, and is progressing as expected as per OT and PT therapy, following directions and recalling procedures and precautions. Discharge speech Therapy as per plan of care to provide treatment 5x for 1 week. Speech Goal 2 Current Status Moderate impairment Goals: Physical Therapy: Initial Goals Bed Mobility Assistance Independent Transfer Mobility Assistance Independent Transfer/Bed Mobility Rolling Walker Recommended Devices Ambulation Independent Ambulation Recommended Devices Rolling Walker Ambulation Distance 50 Wheelchair Propulsion Ability Independent Wheelchair Distance (ft) 150 Stairs Assistance Independent Stair Recommended Devices Two Rails Number of Stairs flight Home Exercise Program Independent Assistance Physical Therapy: Updated Goals Transfer/Bed Mobility Karen Lift Recommended Devices Occupational Therapy: Initial Goals Goals to be Completed in (Days 35-42 ) Upper Body Bathing Routine Independent Lower Body Bathing Routine Modified Independent with Upper Body Dressing Routine Independent Lower Body Dressing Routine Modified Independent with Toilet Hygeine and Clothing Modified Independent with Management Routine Toilet Transfer Routine Modified Independent with Step-In Shower Transfer Modified Independent with Routine Functional Transfers for ADL Modified Independent with Grooming Routine Independent Feeding Routine Independent Nutrition: Goals Intervention Goals 1. adequate intake to support hydration, stable wt, and lean body mass 2. skin to right heel will show evidence of healing; no evidence of new skin breadown 3. maintain serum electrolytes WNL 4. regulation of bowel pattern; no c/o constipation (or diarrhea) Speech: Goals Speech Goal 1 Memory Speech Evaluation Status Goal Moderate impairment 1 Goal 1 Comments Memory Goals: Long-Term Goal: Pt will use compensatory strategies to encode and retrieve 5/5 new items after delay of 30 minutes, Independently, for independence in mobility safety, ADLs and community access. Status: Met Short-term Goal: Pt will use compensatory strategies to encode and retrieve 3/4 new items after delay of 5 minutes, given skilled instruction, Moderate cueing, and extra time. Status: Met Speech Goal 2 Problem Solving Speech Goal 2 Current Status Moderate impairment Speech Goal 2 Comments Problem Solving Goals: Long-Term Goal: Pt will use compensatory strategies to solve moderately complex routine problems, for transfer and mobility safety, adaptive dressing, time and money management; with 100% accuracy, Independently. Status: Met Short-Term Goal: Pt will use compensatory strategies to solve simple routine problems, for transfer and mobility safety, adaptive dressing, time and money management; with 80% accuracy, given skilled instruction, Moderate cueing, and extra time. Status: Met Patient described the situation, safety hazard, and solution to 10/10 Problem Solving Picture cards. Social Work: Goals Discharge Plan return home with home care svs and family support Potential for Family Training pt's nephew is involved and supportive, though works during the day Anticipated Discharge Home Destination Anticipated Discharge will need a wheelchair ramp Destination Comment Discharge With home care svs and family support Care Plan: Care Plan ADL's - Improve/Maintain Start: 07/30/18 23:14 Freq: DAILY Status: Active Target: Protocol: Activity Type Activity Date Activity User E-Sign Co-Sign Detail Recorded Client Recorded Date Recorded By Document 08/03/18 11:29 [id number] 08/03/18 11:29 [id number] 08/03/18 11:29 PMRU Outcome: ADL's/ADL Transfers Orders/Interventions Occupational Therapy Evaluation & Treatment Communication Tool in Patient Room Patient to receive OT 5x/wk for 60-120 Therex min/day Self Care Management Group Therapy UE/LE ADL's with Assist Yes: mod I ADL Transfers with Assist Yes: mod I Toileting: Transfers,Clothing Management Yes: mod I ,Hygeine w/Assist Light Kitchen/Laundry w/Assist No Progression Toward Outcome/Goals Progressing Outcome/Goals Met Pt making gradual gains with rolling but still needs to complete ADL at bed level. Will attempt shower tomorrow. [ End ] Communication-Improve/Maintain Start: 08/01/18 18:55 Freq: DAILY Status: Active Target: Protocol: Activity Type Activity Date Activity User E-Sign Co-Sign Detail Recorded Client Recorded Date Recorded By Document 08/08/18 01:13 [id number] 08/08/18 01:13 [id number] 08/08/18 01:13 PMRU Outcome: Communication/Cognitive Status Outcome/Goals Makes Needs Known Effectively Progression Toward Outcomes/Goals Progressing Outcome/Goals Met Makes Needs Known Effectively DVT Prophylaxis- Improve/Maintain Start: 07/30/18 23:14 Freq: QSHIFT Status: Active Target: Protocol: Activity Type Activity Date Activity User E-Sign Co-Sign Detail Recorded Client Recorded Date Recorded By Document 08/08/18 01:13 [id number] 08/08/18 01:14 [id number] 08/08/18 01:13 PMRU Outcome: DVT Prophylaxis Outcome/Goals Remains Free of DVT Complies with DVT Prophylaxis /Treatment TEDS Stockings on Every AM, Off at HS Progression Toward Outcome/Goals Progressing Discharge Planning - Improve/Maintain Start: 07/30/18 23:14 Freq: DAILY Status: Active Target: Protocol: Activity Type Activity Date Activity User E-Sign Co-Sign Detail Recorded Client Recorded Date Recorded By Document 08/08/18 01:13 [id number] 08/08/18 01:13 [id number] 08/08/18 01:13 PMRU Outcome: Discharge Planning Update Patient Family No Outcome/Goals Demonstrates Understanding of Discharge Plan /GI-Improve/Maintain Start: 07/30/18 23:14 Freq: QSHIFT Status: Active Target: Protocol: Activity Type Activity Date Activity User E-Sign Co-Sign Detail Recorded Client Recorded Date Recorded By Document 08/08/18 01:13 [id number] 08/08/18 01:14 [id number] 08/08/18 01:13 PMRU Outcome: Genitourinary/ Gastrointestinal Genitourinary- Outcome/Goals Maintain/ Achieve Urinary Continence Gastrointestinal-Outcome/Goals Maintain/ Achieve Bowel Regularity in Accordance with Pt's Baseline Prevent Constipation Progression Toward Outcome/Goals - Progressing Progression Toward Outcome/Goals - GI Progressing Mobility- Improve/Maintain Start: 07/30/18 13:23 Freq: DAILY Status: Active Target: Protocol: Activity Type Activity Date Activity User E-Sign Co-Sign Detail Recorded Client Recorded Date Recorded By Document 07/31/18 14:20 [id number] 07/31/18 14:23 [id number] 07/31/18 14:20 PMRU Outcome: Mobility Physical Therapy Evaluation and Yes Treatment Activity OOB with Assistance Yes TTWB Yes: R LE Device Yes: FWW/KAREN Assistance Yes: Total Patient to be seen 5x/wk for 60-120 min/ Therex day for: Mobility Training Gait Training W/C Mobility Balance Outcome/Goals Maintain/ Achieve Baseline Mobility Status Improve Mobility Status Demonstrates Proper Use of Assistive Devices Free from Complications of Immobility Bed Mobility Yes: Ind Transfers Yes: Mod I with walker Gait x ft Yes: Mod I with walker x50ft W/C Mobility x ft Yes: Mod I x150ft Up/Down Stairs Yes: Mod I, flight with 2 rails With HEP Yes Goal Comment Recall TTWBing to RLE Neurological- Improve/Maintain Start: 07/30/18 23:14 Freq: QSHIFT Status: Active Target: Protocol: Activity Type Activity Date Activity User E-Sign Co-Sign Detail Recorded Client Recorded Date Recorded By Document 08/08/18 01:13 [id number] 08/08/18 01:14 [id number] 08/08/18 01:13 PMRU Outcome: Neurological Weakness/Aphasia Weakness Outcome/Goals Maintain/ Achieve Baseline Neurological Status Improve Neurological Status Prevent Avoidable Neurological Decline Maintain/ Improve Strength/ROM Progression Toward Outcome/Goals Progressing Pain/Comfort- Improve/Maintain Start: 07/30/18 13:23 Freq: QSHIFT Status: Active Target: Protocol: Activity Type Activity Date Activity User E-Sign Co-Sign Detail Recorded Client Recorded Date Recorded By Document 08/08/18 01:13 [id number] 08/08/18 01:14 [id number] 08/08/18 01:13 PMRU Outcome: Pain/Comfort Outcome/Goals Demonstrates Knowledge and Use of Available Comfort Measures Achieves Acceptable Comfort/Pain Level as Determined by Patient/Condit Maintain Comfort Level Allowing Patient to Fully Participate in Rehab Progression Toward Outcome/Goals Progressing Outcome/Goals Met Comment pt denied pain Respiratory - Improve/Maintain Start: 07/30/18 13:23 Freq: QSHIFT Status: Active Target: Protocol: Activity Type Activity Date Activity User E-Sign Co-Sign Detail Recorded Client Recorded Date Recorded By Document 08/08/18 01:13 [id number] [email or web address] 08/08/18 01:14 [id number] 08/08/18 01:13 PMRU Outcome: Respiratory Does Patient Have a Trach No Outcome/Goals Maintain/ Improve O2 Sat per MD Order Maintain/ Improve Baseline Respiratory Status Maintain/ Improve Activity Tolerance Progression Toward Outcome/Goals Progressing Outcome/Goals Met Comment oxymask at 2L worn intermittently Safety- Improve/Maintain Start: 07/30/18 13:23 Freq: QSHIFT Status: Active Target: Protocol: Activity Type Activity Date Activity User E-Sign Co-Sign Detail Recorded Client Recorded Date Recorded By Document 08/08/18 01:13 [id number] 08/08/18 01:14 [id number] 08/08/18 01:13 PMRU Outcome: Safety Outcome/Goals Remain Free of Injury or Harm Cooperates with Safety Measures for Least Restrictive Environment Prevent Falls/ Injury Progression Toward Outcome/Goals Progressing Outcome/Goals Met Comment BA armed Skin- Improve/Maintain Start: 07/30/18 13:23 Freq: QSHIFT Status: Active Target: Protocol: Activity Type Activity Date Activity User E-Sign Co-Sign Detail Recorded Client Recorded Date Recorded By Document 08/08/18 01:13 [id number] 08/08/18 01:14 [id number] 08/08/18 01:13 PMRU Outcome: Skin Skin Risk Level Medium Skin Orders Heels Off Bed Turn/Position q2hr While in Bed Outcome/Goals Maintain/ Improve Skin Intergrity Surgical Incisions Healing Progression Toward Outcome/Goals Progressing Medicine Note: Length of Stay: 4 weeks Anticipated Discharge Destination: Home Tentative Discharge Date: 09/12/18 Discharged to: Home
--- NOTE | 2018-08-08 18:30 | PN ---
Progress Note Date of Service: 08/08/18 Note: KORIN GUZMAN was visited. Therapy notes read and reviewed. He was discussed in interdisciplinary team rounds. He is really struggling with mobilizing while he is non weight bearing. He may need to go to a subacute until he is able to weight bear Current Medications: Active Medications Generic Name Dose Route Start Last Admin Trade Name Freq PRN Reason Stop Dose Admin Acetaminophen 650 mg 07/30/18 09:54 08/07/18 21:43 Tylenol Tab* PO 650 mg Q6H PRN Administration FEVER > 101 Al Hydrox/Mg Hydrox/Simethicone 30 ml 07/30/18 09:54 Maalox Plus* PO Q6H PRN INDIGESTION Albuterol 2 puff 07/30/18 10:13 08/05/18 08:16 Ventolin Hfa Inhaler* INH 2 puff Q6H PRN Administration SOB/WHEEZING Amoxicillin 250 mg 08/06/18 09:00 08/08/18 14:35 Amoxicillin Po (*) PO 250 mg TID SUNDEEP Administration Bisacodyl 10 mg 07/30/18 09:54 Dulcolax Supp* MA DAILY PRN CONSTIPATION Cholecalciferol 2,000 units 08/01/18 09:00 08/08/18 08:26 Vitamin D Tab* PO 2,000 units DAILY SUNDEEP Administration Docusate Sodium 100 mg 08/04/18 15:08 08/06/18 21:35 Colace Cap* PO 100 mg BID PRN Administration CONSTIPATION Enoxaparin Sodium 40 mg 08/03/18 09:00 08/08/18 08:26 Lovenox(*) SUBCUT 40 mg DAILY SUNDEEP Administration Magnesium Hydroxide 30 ml 07/30/18 09:54 Milk Of Magnesia Liq* PO Q6H PRN CONSTIPATION Magnesium Oxide 800 mg 07/31/18 09:00 08/08/18 08:26 Magox 400 Tab* PO 800 mg DAILY SUNDEEP Administration Methocarbamol 750 mg 07/30/18 10:12 Robaxin Tab* PO QID PRN muscle spasm Mometasone Furoate/Formoterol Fumar 2 puff 07/30/18 21:00 08/08/18 08:27 Dulera 200/5 Mdi* INH 2 puff BID SUNDEEP Administration Oxycodone/Acetaminophen 1 tab 07/30/18 10:07 08/01/18 10:29 Percocet 5/325 Tab* PO 1 tab Q4H PRN Administration PAIN Oxycodone/Acetaminophen 2 tab 07/30/18 10:21 08/08/18 08:29 Percocet 5/325 Tab* PO 2 tab Q4H PRN Administration PAIN Pantoprazole Sodium 40 mg 07/31/18 09:00 08/08/18 08:27 Protonix Tab* PO 40 mg DAILY SUNDEEP Administration Polyethylene Glycol/Electrolytes 17 gm 07/30/18 10:05 Miralax* PO DAILY PRN CONSTIPATION Senna 2 tab 07/30/18 09:54 08/06/18 21:35 Senokot Tab* PO 2 tab BEDTIME PRN Administration CONSTIPATION Vital Signs: Vital Signs Temp Pulse Resp BP Pulse Ox 98.1 F 62 20 126/71 97 08/08/18 16:03 08/08/18 16:03 08/08/18 16:03 08/08/18 16:03 08/08/18 16:36 Exam: GENERAL: In no distress LUNGS: Mostly clear bilaterallly HEART: reg rhythm ABDOMEN: Soft, +BS EXTREMITIES: Dressing on right leg with scant drainage NEUROLOGIC: Alert, oriented. Moves all 4 extremities. Can dorsiflex right foot Assessment/Plan: 1. Right Hip Fracture: TTWB on RLE. PT/OT 2. COPD: Dulera/Albuterol/Oxygen 3. Small Cell Lung Cancer: Stable 4. GERD: Protonix 5. DVT Prophylaxis: Lovenox 6. Advance Directives: Full Code. 7. 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 Urinary Tract Infection: Amoxicillin day 4/5 08/08/18 18:30
[2018-08-09] MEDS: Enoxaparin(*) 40 MG/0.4 ML SYR SUBCUT SCH (08:36)
[2018-08-09] MEDS: Cholecalciferol TAB* 1000 UNITS PO SCH (08:36)
[2018-08-09] MEDS: Amoxicillin PO (*) 250 MG CAP PO SCH ×3 (08:36→20:59)
[2018-08-09] MEDS: Mometasone/Formoter 200/5 MDI INH SCH ×2 (08:37→21:02)
[2018-08-09] MEDS: Pantoprazole TAB * 40 MG TAB PO SCH (08:37)
[2018-08-09] MEDS: Magnesium Oxide TAB* 400 MG PO SCH (08:37)
[2018-08-09] MEDS: oxyCODONE/Acetamin 5/325 MG* TAB PO PRN (08:39)
--- NOTE | 2018-08-09 19:00 | PN ---
Progress Note Date of Service: 08/09/18 Note: KORIN GUZMAN was visited. Therapy notes read and reviewed. He has no complaints. Still a lot of trouble with mobility, he may have to go to [facility] for subacute until his WB status changes Current Medications: Active Medications Generic Name Dose Route Start Last Admin Trade Name Freq PRN Reason Stop Dose Admin Acetaminophen 650 mg 07/30/18 09:54 08/07/18 21:43 Tylenol Tab* PO 650 mg Q6H PRN Administration FEVER > 101 Al Hydrox/Mg Hydrox/Simethicone 30 ml 07/30/18 09:54 Maalox Plus* PO Q6H PRN INDIGESTION Albuterol 2 puff 07/30/18 10:13 08/05/18 08:16 Ventolin Hfa Inhaler* INH 2 puff Q6H PRN Administration SOB/WHEEZING Amoxicillin 250 mg 08/06/18 09:00 08/09/18 14:29 Amoxicillin Po (*) PO 250 mg TID SUNDEEP Administration Bisacodyl 10 mg 07/30/18 09:54 Dulcolax Supp* SC DAILY PRN CONSTIPATION Cholecalciferol 2,000 units 08/01/18 09:00 08/09/18 08:36 Vitamin D Tab* PO 2,000 units DAILY SUNDEEP Administration Docusate Sodium 100 mg 08/04/18 15:08 08/06/18 21:35 Colace Cap* PO 100 mg BID PRN Administration CONSTIPATION Enoxaparin Sodium 40 mg 08/03/18 09:00 08/09/18 08:36 Lovenox(*) SUBCUT 40 mg DAILY SUNDEEP Administration Magnesium Hydroxide 30 ml 07/30/18 09:54 Milk Of Magnesia Liq* PO Q6H PRN CONSTIPATION Magnesium Oxide 800 mg 07/31/18 09:00 08/09/18 08:37 Magox 400 Tab* PO 800 mg DAILY SUNDEEP Administration Methocarbamol 750 mg 07/30/18 10:12 Robaxin Tab* PO QID PRN muscle spasm Mometasone Furoate/Formoterol Fumar 2 puff 07/30/18 21:00 08/09/18 08:37 Dulera 200/5 Mdi* INH 2 puff BID SUNDEEP Administration Oxycodone/Acetaminophen 1 tab 07/30/18 10:07 08/01/18 10:29 Percocet 5/325 Tab* PO 1 tab Q4H PRN Administration PAIN Oxycodone/Acetaminophen 2 tab 07/30/18 10:21 08/09/18 08:39 Percocet 5/325 Tab* PO 2 tab Q4H PRN Administration PAIN Pantoprazole Sodium 40 mg 07/31/18 09:00 08/09/18 08:37 Protonix Tab* PO 40 mg DAILY SUNDEEP Administration Polyethylene Glycol/Electrolytes 17 gm 07/30/18 10:05 Miralax* PO DAILY PRN CONSTIPATION Senna 2 tab 07/30/18 09:54 08/06/18 21:35 Senokot Tab* PO 2 tab BEDTIME PRN Administration CONSTIPATION Vital Signs: Vital Signs Temp Pulse Resp BP Pulse Ox 98.2 F 79 20 133/62 96 08/09/18 16:14 08/09/18 16:14 08/09/18 16:14 08/09/18 16:14 08/09/18 17:28 Exam: GENERAL: In no distress LUNGS: Mostly clear bilaterallly HEART: reg rhythm ABDOMEN: Soft, +BS EXTREMITIES: Dressing on right leg with scant drainage NEUROLOGIC: Alert, oriented. Moves all 4 extremities. Can dorsiflex right foot Assessment/Plan: 1. Right Hip Fracture: TTWB on RLE. PT/OT 2. COPD: Dulera/Albuterol/Oxygen 3. Small Cell Lung Cancer: Stable 4. GERD: Protonix 5. DVT Prophylaxis: Lovenox 6. Advance Directives: Full Code. 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 Urinary Tract Infection: Amoxicillin day /08/09/18 19:01
[2018-08-09] MEDS: Acetaminophen TAB* 325 MG PO PRN (20:59)
[2018-08-10] MEDS: Amoxicillin PO (*) 250 MG CAP PO SCH ×2 (09:47→13:09)
[2018-08-10] MEDS: Cholecalciferol TAB* 1000 UNITS PO SCH (09:47)
[2018-08-10] MEDS: Enoxaparin(*) 40 MG/0.4 ML SYR SUBCUT SCH (09:49)
[2018-08-10] MEDS: Magnesium Oxide TAB* 400 MG PO SCH (09:49)
[2018-08-10] MEDS: Pantoprazole TAB * 40 MG TAB PO SCH (09:50)
[2018-08-10] MEDS: Mometasone/Formoter 200/5 MDI INH SCH ×2 (09:50→20:37)
[2018-08-10] MEDS: oxyCODONE/Acetamin 5/325 MG* TAB PO PRN (13:08)
--- NOTE | 2018-08-10 20:13 | PN ---
Progress Note Date of Service: 08/10/18 Note: KORIN GUZMAN was visited. Therapy notes read and reviewed. He has no complaints and feels like he is ok. Will likely go to Subacute rehab Current Medications: Active Medications Generic Name Dose Route Start Last Admin Trade Name Freq PRN Reason Stop Dose Admin Acetaminophen 650 mg 07/30/18 09:54 08/09/18 20:59 Tylenol Tab* PO 650 mg Q6H PRN Administration FEVER > 101 Al Hydrox/Mg Hydrox/Simethicone 30 ml 07/30/18 09:54 Maalox Plus* PO Q6H PRN INDIGESTION Albuterol 2 puff 07/30/18 10:13 08/05/18 08:16 Ventolin Hfa Inhaler* INH 2 puff Q6H PRN Administration SOB/WHEEZING Bisacodyl 10 mg 07/30/18 09:54 Dulcolax Supp* [place] DAILY PRN CONSTIPATION Cholecalciferol 2,000 units 08/01/18 09:00 08/10/18 09:47 Vitamin D Tab* PO 2,000 units DAILY SUNDEEP Administration Docusate Sodium 100 mg 08/04/18 15:08 08/06/18 21:35 Colace Cap* PO 100 mg BID PRN Administration CONSTIPATION Enoxaparin Sodium 40 mg 08/03/18 09:00 08/10/18 09:49 Lovenox(*) SUBCUT 40 mg DAILY SUNDEEP Administration Magnesium Hydroxide 30 ml 07/30/18 09:54 Milk Of Magnesia Liq* PO Q6H PRN CONSTIPATION Magnesium Oxide 800 mg 07/31/18 09:00 08/10/18 09:49 Magox 400 Tab* PO 800 mg DAILY SUNDEEP Administration Methocarbamol 750 mg 07/30/18 10:12 Robaxin Tab* PO QID PRN muscle spasm Mometasone Furoate/Formoterol Fumar 2 puff 07/30/18 21:00 08/10/18 09:50 Dulera 200/5 Mdi* INH 2 puff BID SUNDEEP Administration Oxycodone/Acetaminophen 1 tab 07/30/18 10:07 08/01/18 10:29 Percocet 5/325 Tab* PO 1 tab Q4H PRN Administration PAIN Oxycodone/Acetaminophen 2 tab 07/30/18 10:21 08/10/18 13:08 Percocet 5/325 Tab* PO 2 tab Q4H PRN Administration PAIN Pantoprazole Sodium 40 mg 07/31/18 09:00 08/10/18 09:50 Protonix Tab* PO 40 mg DAILY SUNDEEP Administration Polyethylene Glycol/Electrolytes 17 gm 07/30/18 10:05 Miralax* PO DAILY PRN CONSTIPATION Senna 2 tab 07/30/18 09:54 08/06/18 21:35 Senokot Tab* PO 2 tab BEDTIME PRN Administration CONSTIPATION Vital Signs: Vital Signs Temp Pulse Resp BP Pulse Ox 98.2 F 75 18 127/75 97 08/10/18 14:09 08/10/18 14:09 08/10/18 15:15 08/10/18 14:09 08/10/18 16:00 Exam: GENERAL: In no distress LUNGS: Mostly clear bilaterallly HEART: reg rhythm ABDOMEN: Soft, +BS EXTREMITIES: Dressing on right leg with scant drainage NEUROLOGIC: Alert, oriented. Moves all 4 extremities. Can dorsiflex right foot Assessment/Plan: 1. Right Hip Fracture: TTWB on RLE. PT/OT 2. COPD: Dulera/Albuterol/Oxygen 3. Small Cell Lung Cancer: Stable 4. GERD: Protonix 5. DVT Prophylaxis: Lovenox 6. Advance Directives: Full Code. 7. 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 Urinary Tract Infection: Amoxicillin finished 08/10/18 20:13 08/10/18 20:14
[2018-08-11] MEDS: oxyCODONE/Acetamin 5/325 MG* TAB PO PRN (01:24)
[2018-08-11 07:05] VITALS: BP 125/70
[2018-08-11] MEDS: Mometasone/Formoter 200/5 MDI INH SCH (07:47)
[2018-08-11] MEDS: Pantoprazole TAB * 40 MG TAB PO SCH (07:48)
[2018-08-11] MEDS: Cholecalciferol TAB* 1000 UNITS PO SCH (07:48)
[2018-08-11] MEDS: Magnesium Oxide TAB* 400 MG PO SCH (07:48)
[2018-08-11] MEDS: Enoxaparin(*) 40 MG/0.4 ML SYR SUBCUT SCH (07:49)
--- NOTE | 2018-08-11 10:11 | PN ---
Progress Note Date of Service: 08/11/18 Note: KORIN GUZMAN was visited. Nursing and therapy notes read and reviewed. No chest pain, shortness of breath or abdominal pain. No new issues overnight. + BMs. Current Medications: Active Medications Generic Name Dose Route Start Last Admin Trade Name Freq PRN Reason Stop Dose Admin Acetaminophen 650 mg 07/30/18 09:54 08/09/18 20:59 Tylenol Tab* PO 650 mg Q6H PRN Administration FEVER > 101 Al Hydrox/Mg Hydrox/Simethicone 30 ml 07/30/18 09:54 Maalox Plus* PO Q6H PRN INDIGESTION Albuterol 2 puff 07/30/18 10:13 08/05/18 08:16 Ventolin Hfa Inhaler* INH 2 puff Q6H PRN Administration SOB/WHEEZING Bisacodyl 10 mg 07/30/18 09:54 Dulcolax Supp* IN DAILY PRN CONSTIPATION Cholecalciferol 2,000 units 08/01/18 09:00 08/11/18 07:48 Vitamin D Tab* PO 2,000 units DAILY SUNDEEP Administration Docusate Sodium 100 mg 08/04/18 15:08 08/06/18 21:35 Colace Cap* PO 100 mg BID PRN Administration CONSTIPATION Enoxaparin Sodium 40 mg 08/03/18 09:00 08/11/18 07:49 Lovenox(*) SUBCUT 40 mg DAILY SUNDEEP Administration Magnesium Hydroxide 30 ml 07/30/18 09:54 Milk Of Magnesia Liq* PO Q6H PRN CONSTIPATION Magnesium Oxide 800 mg 07/31/18 09:00 08/11/18 07:48 Magox 400 Tab* PO 800 mg DAILY SUNDEEP Administration Methocarbamol 750 mg 07/30/18 10:12 Robaxin Tab* PO QID PRN muscle spasm Mometasone Furoate/Formoterol Fumar 2 puff 07/30/18 21:00 08/11/18 07:47 Dulera 200/5 Mdi* INH 2 puff BID SUNDEEP Administration Oxycodone/Acetaminophen 1 tab 07/30/18 10:07 08/01/18 10:29 Percocet 5/325 Tab* PO 1 tab Q4H PRN Administration PAIN Oxycodone/Acetaminophen 2 tab 07/30/18 10:21 08/11/18 01:24 Percocet 5/325 Tab* PO 2 tab Q4H PRN Administration PAIN Pantoprazole Sodium 40 mg 07/31/18 09:00 08/11/18 07:48 Protonix Tab* PO 40 mg DAILY SUNDEEP Administration Polyethylene Glycol/Electrolytes 17 gm 07/30/18 10:05 Miralax* PO DAILY PRN CONSTIPATION Senna 2 tab 07/30/18 09:54 08/06/18 21:35 Senokot Tab* PO 2 tab BEDTIME PRN Administration CONSTIPATION Vital Signs: Vital Signs Temp Pulse Resp BP Pulse Ox 97.7 F 58 16 125/70 94 08/11/18 06:25 08/11/18 06:25 08/11/18 06:25 08/11/18 06:25 08/11/18 06:25 Exam: GENERAL: No acute distress. Alert and appropriate. LUNGS: Clear to auscultation bilaterally with decreased breath sounds throughout consistent with COPD. HEART: regular rate and rhythm ABDOMEN: Soft, + bowel sounds, non-tender, non-distended. EXTREMITIES: no edema. NEUROLOGIC: Bilateral LE motor 5/5 except limited testing of right hip/knee due to pain. Sensation intact. Assessment/Plan: 1. Right Hip Fracture: TTWB on RLE. f/u Dr. [place]. PT/OT 2. COPD: Dulera/Albuterol/Oxygen 3. Small Cell Lung Cancer: Stable 4. GERD: Protonix 5. DVT Prophylaxis: Lovenox 6. Advance Directives: Full Code. 7. 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 Urinary Tract Infection: Amoxicillin finished 9. Advanced directives: nephew is hcp. 10. Dispo: awaiting insurance approval for SNF. 08/11/18 10:09
--- NOTE | 2018-08-11 13:35 | DS ---
CC: Dr. Lockwood; Dr. Stockton REHABILITATION DISCHARGE SUMMARY: DATE OF ADMISSION: 07/30/18 DATE OF DISCHARGE: Date of anticipated discharge to [facility] on 08/11/18. PRIMARY CARE PROVIDER: Dr. Lockwood. ORTHOPEDIC SURGEON: Dr. Stockton. REASON FOR ADMISSION: Right intertrochanteric femur fracture. HISTORY OF PRESENT ILLNESS: For full details of his acute hospitalization leading up to his admission, please see the note dictated by myself on 07/30/18. REHABILITATION COURSE: During his time on the RU, he continued using Lovenox for DVT prophylaxis. He has been on continuous oxygen as per his home protocol , using 2 L and facemask. He also has inhalers that he has continued using. His amlodipine has not been restarted because his blood pressure has been under good control. He was diagnosed with a urinary tract infection of Staph epidermidis and this was treated with 5 days of amoxicillin. He has had toe touch weightbearing restrictions to his right lower extremity, but had difficulty keeping those restrictions. He has a deep soft tissue injury to his right heel, which was evaluated by Dr. Kline for wound care. She recommended continuing to keep his heel elevated and make sure he does not put pressure on his posterior legs or feet. He has been participating with physical therapy on a daily basis, but has had difficulty with maintaining toe touch weightbearing precautions. At this time, he still requires 2 or more assist for transferring and staff has been using a Erick lift. He has been able to do sit to stands with a parallel bars at times with min to mod assist of one and a gait belt with [id number] cues, especially to keep his right leg off of the floor. With occupational therapy, he requires a min to mod assist of upper body dressing, but a total assist was 2 people for lower body dressing. He requires a minimal assistance for grooming and mod assist of 2 for bathing. They required 2 assists to roll and dry him posteriorly when he is in bed. He requires 2 assist for sina area care. Because of his challenges with maintaining his weightbearing status, it appeared that it would be more appropriate to go to a subacute rehabilitation facility. He was accepted at [facility]. On 08/11/18, his liu were removed and Steri-Strips were placed. Dr. Stockton came to follow-up with him on 08/11/18 and ordered x-rays that she will follow-up on. She would like to see him again in a month. He is to continue on Lovenox for DVT prophylaxis for a total of 6 weeks postoperatively. Of note during his rehabilitation stay, he has been noted to have mild hyperglycemia. Hemoglobin A1c was 5.9. He was started on a magnesium oxide supplement during the acute hospitalization and he continues taking that medication. His last magnesium level was 1.8 on 07/31/18. His hemoglobin and hematocrit has been stable postoperatively. ALLERGIES: No known drug allergies. MEDICATIONS: 1. Acetaminophen 650 mg q.6 hours p.r.n. pain or fever. 2. Vitamin D 2000 units daily. 3. Colace 100 mg b.i.d. p.r.n. constipation. 4. Lovenox 40 mg subcutaneous daily. 5. Percocet 1 to 2 tablets q.4 hours p.r.n. pain. 6. Senna 2 tablets q.h.s. p.r.n. constipation. 7. Albuterol inhaler 2 puffs q.6 hours p.r.n. 8. Pantoprazole 40 mg daily. 9. Dulera 200/5 metered dose inhaler 2 puffs b.i.d. 10. Magnesium oxide 800 mg daily. Medications that have been on hold include: 1. Aspirin 81 mg daily while on Lovenox. 2. Potassium 20 mEq daily. 3. Amlodipine 10 mg daily. DISCHARGE CONDITION: Fair. DISCHARGE DISPOSITION: To [facility]. DISCHARGE DIAGNOSES: 1. Right hip fracture, status post open reduction and internal fixation. 2. Chronic obstructive pulmonary disease. 3. Hypertension. 4. Urinary tract infection. 5. Acute postoperative anemia. 6. Hyperglycemia. 7. Hypomagnesemia. FOLLOWUP: 1. He should follow up with his primary care provider in another month. 2. Follow up with Dr. Stockton in 1 month. [id number]/[facility] #: [id number] MICKIE
--- NOTE | 2018-08-11 14:01 | PN ---
Progress Note - Progress Note Date of Service: 08/11/18 Note: Pt seen and examined. 2 weeks from R hip IMN for basicervical fracture. Denies SOB or CP. limited weight bearing. Temp Pulse Resp BP Pulse Ox 97.7 F 58 16 125/70 94 08/11/18 06:25 08/11/18 06:25 08/11/18 06:25 08/11/18 06:25 08/11/18 06:25 NAD. AAOx3. R hip: incision c/d/i. calf soft and nontender. SILT grossly distally. able to flex/ext toes. DF/PF ankle. A/P 73 yo M 2 weeks s/p IMN for R hip fracture doing well being transferred to SNF xrays pending for today. will review. dvt ppx for 6 weeks f/u in my office in 4 weeks liu removed by PMRU today.
[2018-08-11] MEDS: Albuterol HFA INHALER* 8 gm MDI INH PRN (14:46)
== END 2018-08-11 15:10 | DRG 560 ==
LOC: PMRU 11:53
PROVIDERS: ADMIT Physical Medicine & Rehabilitation; ATTEND Physical Medicine & Rehabilitation
PROC: F07Z5ZZ Bed Mobility Treatment (ICD-10-PCS; principal; 2018-07-30)
PROC: F07Z9ZZ Gait Training/Functional Ambulation Treatment (ICD-10-PCS; 2018-07-30)
PROC: F07Z8ZZ Transfer Training Treatment (ICD-10-PCS; 2018-07-30)
PROC: F07Z4ZZ Wheelchair Mobility Treatment (ICD-10-PCS; 2018-07-30)
PROC: F08Z0ZZ Bathing/Showering Techniques Treatment (ICD-10-PCS; 2018-07-30)
PROC: F08Z1ZZ Dressing Techniques Treatment (ICD-10-PCS; 2018-07-30)
PROC: F08Z3ZZ Feeding/Eating Treatment (ICD-10-PCS; 2018-07-30)
DX: S72.141D Displaced intertrochanteric fracture of right femur, subsequent encounter for closed fracture with routine healing (principal); J96.11 Chronic respiratory failure with hypoxia; N39.0 Urinary tract infection, site not specified; D62 Acute posthemorrhagic anemia; Z99.81 Dependence on supplemental oxygen; L89.619 Pressure ulcer of right heel, unspecified stage; J44.9 Chronic obstructive pulmonary disease, unspecified; E83.42 Hypomagnesemia; B95.7 Other staphylococcus as the cause of diseases classified elsewhere; I10 Essential (primary) hypertension; R73.9 Hyperglycemia, unspecified; K21.9 Gastro-esophageal reflux disease without esophagitis; F10.21 Alcohol dependence, in remission; G31.84 Mild cognitive impairment of uncertain or unknown etiology; K59.00 Constipation, unspecified; R32 Unspecified urinary incontinence; Z85.118 Personal history of other malignant neoplasm of bronchus and lung; W18.30XD Fall on same level, unspecified, subsequent encounter; Z92.3 Personal history of irradiation; Z92.21 Personal history of antineoplastic chemotherapy; Z79.1 Long term (current) use of non-steroidal anti-inflammatories (NSAID); Z79.899 Other long term (current) drug therapy; Z82.49 Family history of ischemic heart disease and other diseases of the circulatory system; Z80.3 Family history of malignant neoplasm of breast; Z80.1 Family history of malignant neoplasm of trachea, bronchus and lung
CPT/HCPCS: 36415; 80053; 81003; 81015; 83036; 83735; 85025; 87077; 87086; 87186; 94640; A9270-GY; G0515-GO; J1642; J1650

== ENCOUNTER 2021-02-28 00:15 | Inpatient (IN) ==
[2021-02-28 01:33] LABS: ABS Eosinophils 0.2 10^3/ul (0-0.6); ABS Lymphocytes 0.9 10^3/ul (1.0-4.8); ABS Monocytes 0.7 10^3/ul (0-0.8); ABS Neutrophils 8.8 10^3/ul (1.5-7.7); Eosinophil % 1.5 %; Hematocrit 45 % (42-52); Hemoglobin 15.2 g/dL (14.0-18.0); Lymphocyte % 8.6 %; Mean Corpuscular HGB Conc 33 g/dL (31-36); Mean Corpuscular Hemoglobin 27 pg (27-31); Mean Corpuscular Volume 80 fL (80-94); Mean Platelet Volume 7.3 fL (7.4-10.4); Nucleated Red Blood Cells % 0.1; Platelet Count 276 10^3/uL (150-450); Red Blood Count 5.65 10^6 /uL (4.18-5.48); Red Cell Distribution Width 15 % (10-15); White Blood Count 10.7 10^3/uL (3.5-10.8)
[2021-02-28 01:55] LABS: Activated Partial Thrombo Time 31.9 seconds (26.0-38.0); INR 1.09 (0.86-1.15)
[2021-02-28 01:58] LABS: ALT 19 U/L (7-52); AST 28 U/L (13-39); Albumin 4.4 g/dL (3.2-5.2); Albumin/Globulin Ratio 1.3 (1-3); Alkaline Phosphatase 89 U/L (35-149); Anion Gap 9 mmol/L (2-11); Blood Urea Nitrogen 11 mg/dL (6-24); C Reactive Protein 80.64 mg/L (<8.01); CO2 Carbon Dioxide 28 mmol/L (22-32); Calcium 9.2 mg/dL (8.6-10.3); Chloride 97 mmol/L (101-111); Creatine Kinase 450 U/L (10-223); Globulin 3.4 g/dL (2-4); Glucose 114 mg/dL (70-100); Potassium 3.6 mmol/L (3.5-5.0); Sodium 134 mmol/L (135-145); Total Protein 7.8 g/dL (6.4-8.9); eGFR CKD-EPI 80.9 (>60)
[2021-02-28 02:00] LABS: Troponin I 0.01 ng/mL (<0.03)
[2021-02-28 06:03] LABS: Alcohol, S < 13 mg/dL (<13)
[2021-02-28] MEDS: NS 0.9% 1000 ml BAG 1,000 ML IV SCH ×2 (06:23→18:04)
[2021-02-28] MEDS ORDERED: Albuterol HFA INHALER 8 gm MDI INH PRN (06:24)
[2021-02-28] MEDS ORDERED: Acetaminophen IV 1 GM/100ML VI 100 ML IV PRN (06:44)
[2021-02-28] MEDS: Lidocaine PATCH 5% PATCH TRANSDERM SCH (10:44)
[2021-02-28] MEDS: Potassium Chlor 20 meq TAB.ER PO SCH (10:45)
[2021-02-28] MEDS: Aspirin EC 81 mg TAB.EC (enteric coated) PO SCH (10:46)
[2021-02-28] MEDS: Enoxaparin 40 MG/0.4 ML SYR SUBCUT SCH (10:47)
[2021-02-28] MEDS: CMCS:FLUTICAS/UMECLI/VILANT 200-62.5-25 MDI (NF) INH SCH (12:28)
[2021-02-28 15:11] LABS: Vitamin D Total 25(OH) 12.9 ng/mL (20-50)
[2021-02-28 16:22] LABS: Urine Appearance Clear; Urine Bilirubin Negative (Negative); Urine Blood Negative (Negative); Urine Color Amber; Urine Glucose Negative (Negative); Urine Ketones Trace (Negative); Urine Nitrite Negative (Negative); Urine Protein Negative (Negative); Urine Specific Gravity 1.023 (1.002-1.030); Urine Urobilinogen Negative (Negative)
[2021-02-28] MEDS: Lidocaine Patch REMOVE NOTE PATCH OFF SCH (19:16)
[2021-03-01 07:30] LABS: ABS Eosinophils 0.3 10^3/ul (0-0.6); ABS Lymphocytes 1.5 10^3/ul (1.0-4.8); ABS Monocytes 0.9 10^3/ul (0-0.8); ABS Neutrophils 4.4 10^3/ul (1.5-7.7); Eosinophil % 4.6 %; Hematocrit 41 % (42-52); Hemoglobin 13.4 g/dL (14.0-18.0); Lymphocyte % 20.8 %; Mean Corpuscular HGB Conc 33 g/dL (31-36); Mean Corpuscular Hemoglobin 27 pg (27-31); Mean Corpuscular Volume 81 fL (80-94); Mean Platelet Volume 7.3 fL (7.4-10.4); Nucleated Red Blood Cells % 0.1; Platelet Count 222 10^3/uL (150-450); Red Blood Count 5.01 10^6 /uL (4.18-5.48); Red Cell Distribution Width 15 % (10-15)
[2021-03-01 07:42] LABS: Potassium 3.6 mmol/L (3.5-5.0); eGFR CKD-EPI 98.4 (>60)
[2021-03-01] MEDS ORDERED: Senna TAB 8.6 mg TAB PO PRN (08:11)
[2021-03-01] MEDS: CMCS:FLUTICAS/UMECLI/VILANT 200-62.5-25 MDI (NF) INH SCH (08:52)
[2021-03-01] MEDS: Potassium Chlor 20 meq TAB.ER PO SCH (10:00)
[2021-03-01] MEDS: Aspirin EC 81 mg TAB.EC (enteric coated) PO SCH (10:02)
[2021-03-01] MEDS: oxyCODONE/Acetamin 5/325 mg TAB PO PRN ×3 (10:02→19:50)
[2021-03-01] MEDS: Lidocaine PATCH 5% PATCH TRANSDERM SCH (10:03)
[2021-03-01] MEDS: Enoxaparin 40 MG/0.4 ML SYR SUBCUT SCH (10:03)
[2021-03-01] MEDS: Magnesium Hydroxide LIQ 30 ML UDC PO SCH ×2 (10:09→19:50)
[2021-03-01] MEDS ORDERED: oxyCODONE/Acetamin 5/325 mg TAB PO ONE (14:08)
[2021-03-01] MEDS: Cholecalciferol (VIT D3) 1,000 unit TAB PO SCH (14:23)
[2021-03-01] MEDS: Calcium Citrate 200 mg TAB PO SCH (19:50)
[2021-03-01] MEDS: Lidocaine Patch REMOVE NOTE PATCH OFF SCH (19:55)
[2021-03-02 06:13] LABS: ABS Eosinophils 0.2 10^3/ul (0-0.6); ABS Lymphocytes 0.9 10^3/ul (1.0-4.8); ABS Monocytes 0.9 10^3/ul (0-0.8); ABS Neutrophils 6.3 10^3/ul (1.5-7.7); Eosinophil % 2.5 %; Hematocrit 42 % (42-52); Hemoglobin 13.9 g/dL (14.0-18.0); Mean Corpuscular HGB Conc 33 g/dL (31-36); Mean Corpuscular Hemoglobin 27 pg (27-31); Mean Corpuscular Volume 82 fL (80-94); Mean Platelet Volume 7.3 fL (7.4-10.4); Platelet Count 224 10^3/uL (150-450); Red Blood Count 5.17 10^6 /uL (4.18-5.48); Red Cell Distribution Width 15 % (10-15); White Blood Count 8.3 10^3/uL (3.5-10.8)
[2021-03-02] MEDS: CMCS:FLUTICAS/UMECLI/VILANT 200-62.5-25 MDI (NF) INH SCH (08:25)
[2021-03-02] MEDS: Magnesium Hydroxide LIQ 30 ML UDC PO SCH ×2 (09:54→20:48)
[2021-03-02] MEDS: oxyCODONE/Acetamin 5/325 mg TAB PO PRN ×2 (09:56→20:53)
[2021-03-02] MEDS: Cholecalciferol (VIT D3) 1,000 unit TAB PO SCH (09:57)
[2021-03-02] MEDS: Aspirin EC 81 mg TAB.EC (enteric coated) PO SCH (09:57)
[2021-03-02] MEDS: Potassium Chlor 20 meq TAB.ER PO SCH (09:57)
[2021-03-02] MEDS: Calcium Citrate 200 mg TAB PO SCH ×2 (09:57→20:52)
[2021-03-02] MEDS: Lidocaine PATCH 5% PATCH TRANSDERM SCH ×2 (09:58→10:03)
[2021-03-02] MEDS: Enoxaparin 40 MG/0.4 ML SYR SUBCUT SCH (09:58)
[2021-03-02 10:33] LABS: TSH Ultra Thyroid Stim Horm 1.75 mcIU/mL (0.34-5.60)
[2021-03-02 10:44] LABS: Folate 7.41 ng/mL (5.90-24.80)
[2021-03-02] MEDS: Lidocaine Patch REMOVE NOTE PATCH OFF SCH (20:53)
[2021-03-03] MEDS: oxyCODONE/Acetamin 5/325 mg TAB PO PRN ×2 (02:41→21:06)
[2021-03-03 07:11] LABS: ABS Eosinophils 0.2 10^3/ul (0-0.6); ABS Lymphocytes 1.1 10^3/ul (1.0-4.8); ABS Monocytes 1.1 10^3/ul (0-0.8); ABS Neutrophils 9.3 10^3/ul (1.5-7.7); Eosinophil % 1.8 %; Hematocrit 47 % (42-52); Hemoglobin 15.5 g/dL (14.0-18.0); Lymphocyte % 9.3 %; Mean Corpuscular HGB Conc 33 g/dL (31-36); Mean Corpuscular Hemoglobin 27 pg (27-31); Mean Corpuscular Volume 82 fL (80-94); Mean Platelet Volume 7.6 fL (7.4-10.4); Platelet Count 244 10^3/uL (150-450); Red Blood Count 5.72 10^6 /uL (4.18-5.48); Red Cell Distribution Width 15 % (10-15); White Blood Count 11.7 10^3/uL (3.5-10.8)
[2021-03-03 07:34] LABS: Calcium 9.2 mg/dL (8.6-10.3); Potassium 3.9 mmol/L (3.5-5.0); eGFR CKD-EPI 94.3 (>60)
[2021-03-03] MEDS: CMCS:FLUTICAS/UMECLI/VILANT 200-62.5-25 MDI (NF) INH SCH (08:20)
[2021-03-03] MEDS: Potassium Chlor 20 meq TAB.ER PO SCH (10:46)
[2021-03-03] MEDS: Cholecalciferol (VIT D3) 1,000 unit TAB PO SCH (10:46)
[2021-03-03] MEDS: Magnesium Hydroxide LIQ 30 ML UDC PO SCH ×2 (10:46→20:59)
[2021-03-03] MEDS: Aspirin EC 81 mg TAB.EC (enteric coated) PO SCH (10:46)
[2021-03-03] MEDS: Calcium Citrate 200 mg TAB PO SCH ×2 (10:46→21:00)
[2021-03-03] MEDS: Enoxaparin 40 MG/0.4 ML SYR SUBCUT SCH (10:46)
[2021-03-03] MEDS: Lidocaine PATCH 5% PATCH TRANSDERM SCH (10:46)
[2021-03-03] MEDS ORDERED: cefTRIAXone 1 gm/50 mL NS BAG 1 GM/50 ML BAG IVPB SCH (11:00)
[2021-03-03] MEDS ORDERED: Vancomycin 1,000 MG in NS 0.9% 250 ml 250 ML IVPB SCH (11:05)
[2021-03-03] MEDS ORDERED: Piperacillin/Tazobac ADVAN 3.375 GM in NS 0.9% 100 ml BAG 100 ML IV ONE (11:06)
[2021-03-03] MEDS ORDERED: NS 0.9% 1000 ml BAG 1,000 ML IV ONE (11:06)
[2021-03-03] MEDS ORDERED: Vancomycin per Pharmacy 1 EA NOTE FOLLOW UP PRN (11:07)
[2021-03-03] MEDS ORDERED: Cyanocobalamin INJ 1,000 MCG/ML VIAL 1 ML VIAL IM ONE (11:43)
[2021-03-03] MEDS ORDERED: Zosyn per Pharmacy NOTE FOLLOW UP SCH (12:00)
[2021-03-03] MEDS ORDERED: Vancomycin 1,750 MG in NS 0.9% 500 ml BAG 500 ML IVPB ONE (12:00)
[2021-03-03 12:13] LABS: Urine Appearance Cloudy; Urine Bilirubin Negative (Negative); Urine Blood Negative (Negative); Urine Color Yellow; Urine Glucose Negative (Negative); Urine Ketones Negative (Negative); Urine Nitrite Negative (Negative); Urine Protein Negative (Negative); Urine Specific Gravity 1.014 (1.002-1.030); Urine Urobilinogen Negative (Negative)
[2021-03-03 14:05] LABS: C Reactive Protein 75.77 mg/L (<8.01)
[2021-03-03] MEDS: ZOSYN 3.375 GM Q8H per EXTENDED INFUSION IV SCH ×2 (16:53→23:37)
[2021-03-03] MEDS: NS 0.9% 1000 ml BAG 1,000 ML IV SCH (16:53)
[2021-03-03] MEDS: Lidocaine Patch REMOVE NOTE PATCH OFF SCH (20:59)
[2021-03-04] MEDS ORDERED: Vancomycin 1,250 MG in NS 0.9% 250 ml 250 ML IVPB SCH
[2021-03-04] MEDS: NS 0.9% 1000 ml BAG 1,000 ML IV SCH ×2 (00:59→08:36)
[2021-03-04 06:06] LABS: ABS Eosinophils 0.2 10^3/ul (0-0.6); ABS Lymphocytes 1.1 10^3/ul (1.0-4.8); ABS Monocytes 0.8 10^3/ul (0-0.8); ABS Neutrophils 7.2 10^3/ul (1.5-7.7); Eosinophil % 2.5 %; Hematocrit 41 % (42-52); Hemoglobin 13.7 g/dL (14.0-18.0); Mean Corpuscular HGB Conc 34 g/dL (31-36); Mean Corpuscular Hemoglobin 28 pg (27-31); Mean Corpuscular Volume 82 fL (80-94); Mean Platelet Volume 7.5 fL (7.4-10.4); Platelet Count 223 10^3/uL (150-450); Red Blood Count 4.97 10^6 /uL (4.18-5.48); Red Cell Distribution Width 15 % (10-15); White Blood Count 9.5 10^3/uL (3.5-10.8)
[2021-03-04 06:22] LABS: Albumin 3.7 g/dL (3.2-5.2); Albumin/Globulin Ratio 1.2 (1-3); Calcium 8.6 mg/dL (8.6-10.3); Globulin 3.1 g/dL (2-4); Potassium 3.6 mmol/L (3.5-5.0); Total Bilirubin 0.9 mg/dL (0.2-1.0); Total Protein 6.8 g/dL (6.4-8.9); eGFR CKD-EPI 95.9 (>60)
[2021-03-04] MEDS: CMCS:FLUTICAS/UMECLI/VILANT 200-62.5-25 MDI (NF) INH SCH (08:13)
[2021-03-04] MEDS: ZOSYN 3.375 GM Q8H per EXTENDED INFUSION IV SCH (08:20)
[2021-03-04] MEDS: Enoxaparin 40 MG/0.4 ML SYR SUBCUT SCH (08:20)
[2021-03-04] MEDS: Aspirin EC 81 mg TAB.EC (enteric coated) PO SCH (08:21)
[2021-03-04] MEDS: Potassium Chlor 20 meq TAB.ER PO SCH (08:21)
[2021-03-04] MEDS: Cholecalciferol (VIT D3) 1,000 unit TAB PO SCH (08:21)
[2021-03-04] MEDS: Calcium Citrate 200 mg TAB PO SCH ×2 (08:21→20:18)
[2021-03-04] MEDS: Lidocaine PATCH 5% PATCH TRANSDERM SCH (08:22)
[2021-03-04] MEDS: Magnesium Hydroxide LIQ 30 ML UDC PO SCH ×2 (08:22→19:15)
[2021-03-04] MEDS ORDERED: cefTRIAXone 1 gm/50 mL NS BAG 1 GM/50 ML BAG IVPB SCH (16:00)
[2021-03-04] MEDS: metroNIDAZOLE IV 500 MG/100ML 500 MG/100 ML BAG IVPB SCH (16:42)
[2021-03-04] MEDS: oxyCODONE/Acetamin 5/325 mg TAB PO PRN (17:29)
[2021-03-04] MEDS: Lidocaine Patch REMOVE NOTE PATCH OFF SCH (19:14)
[2021-03-05] MEDS: metroNIDAZOLE IV 500 MG/100ML 500 MG/100 ML BAG IVPB SCH ×2 (01:05→10:48)
[2021-03-05 06:27] LABS: ABS Eosinophils 0.3 10^3/ul (0-0.6); ABS Lymphocytes 1.1 10^3/ul (1.0-4.8); ABS Monocytes 0.7 10^3/ul (0-0.8); ABS Neutrophils 5.9 10^3/ul (1.5-7.7); Eosinophil % 3.9 %; Hematocrit 44 % (42-52); Hemoglobin 14.4 g/dL (14.0-18.0); Lymphocyte % 13.4 %; Mean Corpuscular HGB Conc 33 g/dL (31-36); Mean Corpuscular Hemoglobin 27 pg (27-31); Mean Corpuscular Volume 81 fL (80-94); Mean Platelet Volume 7.5 fL (7.4-10.4); Platelet Count 242 10^3/uL (150-450); Red Blood Count 5.43 10^6 /uL (4.18-5.48); Red Cell Distribution Width 15 % (10-15)
[2021-03-05 06:48] LABS: Calcium 8.8 mg/dL (8.6-10.3); Potassium 3.7 mmol/L (3.5-5.0); eGFR CKD-EPI 96.3 (>60)
[2021-03-05 06:52] VITALS: BP 155/89
[2021-03-05] MEDS: CMCS:FLUTICAS/UMECLI/VILANT 200-62.5-25 MDI (NF) INH SCH (08:19)
[2021-03-05] MEDS: Enoxaparin 40 MG/0.4 ML SYR SUBCUT SCH (10:47)
[2021-03-05] MEDS: Aspirin EC 81 mg TAB.EC (enteric coated) PO SCH (10:48)
[2021-03-05] MEDS: Cholecalciferol (VIT D3) 1,000 unit TAB PO SCH (10:48)
[2021-03-05] MEDS: Potassium Chlor 20 meq TAB.ER PO SCH (10:49)
[2021-03-05] MEDS: Calcium Citrate 200 mg TAB PO SCH (10:49)
[2021-03-05] MEDS: Lidocaine PATCH 5% PATCH TRANSDERM SCH (10:59)
[2021-03-05] MEDS: Magnesium Hydroxide LIQ 30 ML UDC PO SCH (11:09)
[2021-03-05] MEDS ORDERED: Vancomycin Trough Check NOTE FOLLOW UP ONE (11:30)
== END 2021-03-05 15:00 | DRG 551 ==
LOC: ED 00:15 → SUATTDRO 06:12 → EDHOLD 06:12 → MED 09:14
PROVIDERS: ADMIT Internal Medicine; ATTEND Student in an Organized Health Care Education/Training Program

== ENCOUNTER 2022-03-13 00:52 | Observation (INO) ==
[2022-03-13 01:19] LABS: PCO2 Arterial 43 mmHg (35-45); PO2 Arterial 74 mmHg (80-100)
[2022-03-13 01:37] LABS: ABS Eosinophils 0.1 10^3/ul (0-0.6); ABS Lymphocytes 0.7 10^3/ul (1.0-4.8); ABS Monocytes 0.8 10^3/ul (0-0.8); ABS Neutrophils 10.9 10^3/ul (1.5-7.7); Eosinophil % 0.5 %; Hematocrit 46 % (42-52); Hemoglobin 14.9 g/dL (14.0-18.0); Lymphocyte % 5.3 %; Mean Corpuscular HGB Conc 32 g/dL (31-36); Mean Corpuscular Hemoglobin 25 pg (27-31); Mean Corpuscular Volume 79 fL (80-94); Mean Platelet Volume 7.2 fL (7.4-10.4); Platelet Count 259 10^3/uL (150-450); Red Blood Count 5.85 10^6 /uL (4.18-5.48); Red Cell Distribution Width 15 % (10-15); White Blood Count 12.5 10^3/uL (3.5-10.8)
[2022-03-13 01:47] LABS: Activated Partial Thrombo Time 27.3 seconds (26.0-38.0); INR 1.06 (0.88-1.18)
[2022-03-13 02:17] LABS: Albumin 4.3 g/dL (3.2-5.2); Albumin/Globulin Ratio 1.6 (1-3); C Reactive Protein 25.04 mg/L (<8.01); Calcium 9.1 mg/dL (8.6-10.3); Creatinine, Serum 0.91 mg/dL (0.67-1.17); Globulin 2.7 g/dL (2-4); Potassium 4.1 mmol/L (3.5-5.0); Total Bilirubin 0.6 mg/dL (0.2-1.0); eGFR CKD-EPI 87.9 (>60)
[2022-03-13 03:00] LABS: Urine Appearance Cloudy; Urine Bilirubin Negative (Negative); Urine Blood 1+ (Negative); Urine Color Yellow; Urine Glucose Negative (Negative); Urine Ketones Negative (Negative); Urine Nitrite Negative (Negative); Urine Protein Negative (Negative); Urine Specific Gravity 1.014 (1.002-1.030); Urine Urobilinogen Negative (Negative)
[2022-03-13 03:14] LABS: High Sensitivity Troponin 1 Hr 12 pg/mL (<20)
[2022-03-13 03:17] LABS: Urine Bacteria Absent (Absent); Urine Red Blood Cell 2+(6-10/hpf) (Absent); Urine White Blood Cell 2+(11-20/hpf) (Absent)
[2022-03-13] MEDS ORDERED: cefTRIAXone 2 gm/50 mL D5W 2 GM/50 ML BAG IV ONE (03:44)
[2022-03-13] MEDS ORDERED: Senna TAB 8.6 mg TAB PO PRN (04:24)
[2022-03-13] MEDS ORDERED: Albuterol HFA INHALER 8 gm MDI INH PRN (04:24)
[2022-03-13] MEDS ORDERED: LIDOCAINE 4% TOPICAL ONE (04:25)
[2022-03-13] MEDS ORDERED: Lidocaine PATCH 5% PATCH TRANSDERM ONE (05:00)
[2022-03-13] MEDS ORDERED: DOXYcycline 100 MG in NS 0.9% 250 ml 250 ML IVPB ONE (05:17)
[2022-03-13] MEDS: Enoxaparin 40 MG/0.4 ML SYR SUBCUT SCH (06:17)
[2022-03-13] MEDS: Aspirin EC 81 mg TAB.EC (enteric coated) PO SCH (09:06)
[2022-03-13] MEDS: Calcium Citrate 200 mg TAB PO SCH ×2 (09:07→21:54)
[2022-03-13] MEDS: FLUTICAS/UMECLI/VILANT 200-62.5-25 MDI (NF) INH SCH (09:07)
[2022-03-13] MEDS: Cholecalciferol (VIT D3) 1,000 unit TAB PO SCH (09:09)
[2022-03-14] MEDS: Enoxaparin 40 MG/0.4 ML SYR SUBCUT SCH (05:44)
[2022-03-14 06:07] LABS: ABS Eosinophils 0.4 10^3/ul (0-0.6); ABS Lymphocytes 1.3 10^3/ul (1.0-4.8); ABS Monocytes 0.8 10^3/ul (0-0.8); ABS Neutrophils 8.3 10^3/ul (1.5-7.7); Eosinophil % 3.5 %; Hematocrit 46 % (42-52); Hemoglobin 14.9 g/dL (14.0-18.0); Lymphocyte % 12.2 %; Mean Corpuscular HGB Conc 33 g/dL (31-36); Mean Corpuscular Hemoglobin 26 pg (27-31); Mean Corpuscular Volume 80 fL (80-94); Mean Platelet Volume 7.2 fL (7.4-10.4); Platelet Count 229 10^3/uL (150-450); Red Blood Count 5.74 10^6 /uL (4.18-5.48); Red Cell Distribution Width 15 % (10-15); White Blood Count 10.9 10^3/uL (3.5-10.8)
[2022-03-14 06:39] LABS: Calcium 9.2 mg/dL (8.6-10.3); Creatinine, Serum 0.97 mg/dL (0.67-1.17); Potassium 3.5 mmol/L (3.5-5.0); eGFR CKD-EPI 81.4 (>60)
[2022-03-14] MEDS: Cholecalciferol (VIT D3) 1,000 unit TAB PO SCH (07:36)
[2022-03-14] MEDS: Multivitamins/Minerals TAB PO SCH (07:36)
[2022-03-14] MEDS: Aspirin EC 81 mg TAB.EC (enteric coated) PO SCH (07:36)
[2022-03-14] MEDS: Calcium Citrate 200 mg TAB PO SCH ×2 (07:36→21:22)
[2022-03-14] MEDS: FLUTICAS/UMECLI/VILANT 200-62.5-25 MDI (NF) INH SCH (07:51)
[2022-03-15] MEDS: Enoxaparin 40 MG/0.4 ML SYR SUBCUT SCH (04:46)
[2022-03-15] MEDS: FLUTICAS/UMECLI/VILANT 200-62.5-25 MDI (NF) INH SCH (07:38)
[2022-03-15] MEDS: Cholecalciferol (VIT D3) 1,000 unit TAB PO SCH (08:05)
[2022-03-15] MEDS: Aspirin EC 81 mg TAB.EC (enteric coated) PO SCH (08:05)
[2022-03-15] MEDS: Multivitamins/Minerals TAB PO SCH (08:05)
[2022-03-15] MEDS: Calcium Citrate 200 mg TAB PO SCH ×2 (08:05→20:32)
[2022-03-16] MEDS: Enoxaparin 40 MG/0.4 ML SYR SUBCUT SCH (04:55)
[2022-03-16] MEDS: FLUTICAS/UMECLI/VILANT 200-62.5-25 MDI (NF) INH SCH (07:44)
[2022-03-16] MEDS: Cholecalciferol (VIT D3) 1,000 unit TAB PO SCH (08:27)
[2022-03-16] MEDS: Calcium Citrate 200 mg TAB PO SCH ×2 (08:27→21:41)
[2022-03-16] MEDS: Aspirin EC 81 mg TAB.EC (enteric coated) PO SCH (08:27)
[2022-03-16] MEDS: Multivitamins/Minerals TAB PO SCH (08:27)
[2022-03-16 14:05] LABS: Rapid COVID-19 Molecular Undetected (Undetected)
[2022-03-17] MEDS: Enoxaparin 40 MG/0.4 ML SYR SUBCUT SCH (05:08)
[2022-03-17] MEDS: FLUTICAS/UMECLI/VILANT 200-62.5-25 MDI (NF) INH SCH (07:26)
[2022-03-17] MEDS: Cholecalciferol (VIT D3) 1,000 unit TAB PO SCH (08:52)
[2022-03-17] MEDS: Aspirin EC 81 mg TAB.EC (enteric coated) PO SCH (08:52)
[2022-03-17] MEDS: Calcium Citrate 200 mg TAB PO SCH (08:52)
[2022-03-17] MEDS: Multivitamins/Minerals TAB PO SCH (08:52)
[2022-03-17] MEDS ORDERED: Magnesium Hydroxide LIQ 30 ML UDC PO PRN (09:00)
[2022-03-17] MEDS ORDERED: Polyethylene Glycol 3350 17 GM PACKET PO SCH (09:00)
[2022-03-17 11:14] VITALS: BP 142/89
== END 2022-03-17 12:25 | disposition home or self-care (01) ==
LOC: EDHOLD 00:52 → ED 00:52 → SUATTDRO 04:12 → MED 16:01
PROVIDERS: ADMIT Hospitalist; ATTEND Internal Medicine

== ENCOUNTER 2023-01-23 09:36 | Inpatient (IN) ==
[2023-01-23] MEDS ORDERED: Lactated Ringers 1000 ml BAG 1,000 ML IV ONE (10:03)
[2023-01-23 10:23] LABS: ABS Lymphocytes 0.9 10^3/uL (1.0-4.8); ABS Monocytes 0.9 10^3/uL (0.0-1.1); ABS Nucleated RBC 0.02 10^3/ul; Hematocrit 46.3 % (38-53); Hemoglobin 15.2 g/dL (13.2-16.3); Lymphocyte % 4.5 %; Mean Corpuscular Hemoglobin 25.8 pg (27-33); Mean Corpuscular Hgb Conc 32.8 g/dL (31-36); Mean Corpuscular Volume 78.7 fL (80-97); Mean Platelet Volume 7.6 fL (7.5-11.2); Nucleated Red Blood Cells % 0.1 %/100WBC (0.0-0.8); Platelet Count 276 10^3/uL (150-450); Red Blood Count 5.88 10^6/uL (4.06-5.63); Red Cell Distribution Width 15.9 % (12-17); White Blood Count 19.8 10^3/uL (3.6-10.2)
[2023-01-23] MEDS ORDERED: Cefepime 2 GM in Dextrose 2 GM/50 ML BAG IV ONE (10:38)
[2023-01-23] MEDS ORDERED: Vancomycin 1,500 MG in NS 0.9% 250 ml 250 ML IVPB ONE (10:42)
[2023-01-23 10:43] LABS: Albumin 4.2 g/dL (3.2-5.2); Albumin/Globulin Ratio 1.1 (1-3); Globulin 3.7 g/dL (2-4); Potassium 3.6 mmol/L (3.5-5.0); Total Bilirubin 0.7 mg/dL (0.2-1.0); Total Protein 7.9 g/dL (6.4-8.9)
[2023-01-23] MEDS ORDERED: Piperacillin/Tazobac 3.375 BAG 3.375 GM/100 ML BAG IV ONE (10:43)
[2023-01-23 10:55] LABS: INR 1.25 (0.83-1.13)
[2023-01-23 11:47] LABS: Urine Appearance Clear; Urine Bilirubin Negative (Negative); Urine Blood 2+ (Negative); Urine Color Yellow; Urine Glucose Negative (Negative); Urine Ketones Negative (Negative); Urine Nitrite Positive (Negative); Urine Protein Negative (Negative); Urine Specific Gravity 1.018 (1.002-1.030); Urine Urobilinogen Positive (Negative)
[2023-01-23 12:03] LABS: Urine Bacteria Absent (Absent); Urine Red Blood Cell 3+(>10/hpf) (Absent); Urine White Blood Cell Trace(0-5/hpf) (Absent)
[2023-01-23 12:05] LABS: High Sensitivity Troponin 1 Hr 9 pg/mL (<20)
[2023-01-23] MEDS ORDERED: Ondansetron ODT 4 mg TAB 4 MG TAB PO PRN (12:47)
[2023-01-23] MEDS ORDERED: Albuterol HFA INHALER 8 gm MDI INH PRN (12:47)
[2023-01-23] MEDS ORDERED: Vancomycin 1,500 MG in NS 0.9% 250 ml 250 ML IVPB SCH (13:00)
[2023-01-23] MEDS ORDERED: Vancomycin per Pharmacy 1 EA NOTE FOLLOW UP PRN (13:02)
[2023-01-23] MEDS: Heparin 5000 UNITS/ML 1 mL VIAL SUBCUT SCH ×2 (13:21→22:05)
[2023-01-23] MEDS: Cefepime 2 GM in Dextrose 2 GM/50 ML BAG IV SCH (13:32)
[2023-01-23] MEDS: Calcium Citrate 200 mg TAB PO SCH (22:04)
[2023-01-23] MEDS: Vancomycin 1000 MG in NS 0.9% 250 ML IVPB SCH (22:14)
[2023-01-24] MEDS: Cefepime 2 GM in Dextrose 2 GM/50 ML BAG IV SCH ×2 (01:26→13:21)
[2023-01-24] MEDS: Heparin 5000 UNITS/ML 1 mL VIAL SUBCUT SCH ×2 (05:21→14:20)
[2023-01-24 05:57] LABS: Calcium 8.5 mg/dL (8.6-10.3); Creatinine, Serum 0.75 mg/dL (0.67-1.17); Potassium 3.4 mmol/L (3.5-5.0); eGFR CKD-EPI 93.5 (>60)
[2023-01-24 06:15] LABS: ABS Lymphocytes 1.2 10^3/uL (1.0-4.8); ABS Monocytes 0.9 10^3/uL (0.0-1.1); ABS Neutrophils 17.1 10^3/uL (1.5-7.6); ABS Nucleated RBC 0.03 10^3/ul; Eosinophil % 0.1 %; Hematocrit 39.2 % (38-53); Hemoglobin 12.9 g/dL (13.2-16.3); Lymphocyte % 6.4 %; Mean Corpuscular Hemoglobin 25.8 pg (27-33); Mean Corpuscular Hgb Conc 33.1 g/dL (31-36); Mean Platelet Volume 7.6 fL (7.5-11.2); Nucleated Red Blood Cells % 0.2 %/100WBC (0.0-0.8); Platelet Count 248 10^3/uL (150-450); Red Blood Count 5.02 10^6/uL (4.06-5.63); Red Cell Distribution Width 16.1 % (12-17); White Blood Count 19.3 10^3/uL (3.6-10.2)
[2023-01-24] MEDS: CMC:FLUTICAS/UMECLI/VILANT 200-62.5-25 MDI (NF) INH SCH (07:51)
[2023-01-24] MEDS: Aspirin EC 81 mg TAB.EC (enteric coated) PO SCH (08:41)
[2023-01-24] MEDS: Potassium Chlor 20 meq TAB.ER PO SCH (08:41)
[2023-01-24] MEDS: Calcium Citrate 200 mg TAB PO SCH ×2 (09:15→20:33)
[2023-01-24] MEDS: Vancomycin 1000 MG in NS 0.9% 250 ML IVPB SCH (10:35)
[2023-01-24 11:01] LABS: Magnesium 1.6 mg/dL (1.9-2.7)
[2023-01-24] MEDS ORDERED: Magnesium Sulfate 2 gm BAG 2 GM/50 ML BAG IVPB ONE (15:03)
[2023-01-24] MEDS ORDERED: Magnesium Sulfate IV 1GM/100ML 1 GM/100 ML BAG IV ONE (17:03)
[2023-01-24] MEDS: Enoxaparin 40 MG/0.4 ML SYR SUBCUT SCH (17:59)
[2023-01-24] MEDS: Azithromycin 500 mg/250 ml NS 500 MG/250 ML BAG IVPB SCH (18:00)
[2023-01-24] MEDS ORDERED: Influenza vaccine *QUAD* *2023-24* 0.5 ML SYRINGE IM ONE (18:00)
[2023-01-25] MEDS: Cefepime 2 GM in Dextrose 2 GM/50 ML BAG IV SCH ×2 (01:36→14:29)
[2023-01-25 05:29] LABS: ABS Eosinophils 0.1 10^3/uL (0.0-0.5); ABS Lymphocytes 1.2 10^3/uL (1.0-4.8); ABS Monocytes 0.8 10^3/uL (0.0-1.1); ABS Neutrophils 11.6 10^3/uL (1.5-7.6); Eosinophil % 0.6 %; Hemoglobin 12.6 g/dL (13.2-16.3); Lymphocyte % 8.7 %; Mean Corpuscular Hemoglobin 25.2 pg (27-33); Mean Corpuscular Hgb Conc 32.4 g/dL (31-36); Mean Corpuscular Volume 77.8 fL (80-97); Mean Platelet Volume 7.6 fL (7.5-11.2); Platelet Count 235 10^3/uL (150-450); Red Blood Count 5.02 10^6/uL (4.06-5.63); Red Cell Distribution Width 15.8 % (12-17); White Blood Count 13.6 10^3/uL (3.6-10.2)
[2023-01-25 05:58] LABS: Calcium 8.5 mg/dL (8.6-10.3); Creatinine, Serum 0.61 mg/dL (0.67-1.17); Magnesium 1.7 mg/dL (1.9-2.7); Potassium 3.3 mmol/L (3.5-5.0); eGFR CKD-EPI 99.5 (>60)
[2023-01-25] MEDS: CMC:FLUTICAS/UMECLI/VILANT 200-62.5-25 MDI (NF) INH SCH ×2 (06:55→07:36)
[2023-01-25] MEDS ORDERED: Magnesium Sulfate 2 gm BAG 2 GM/50 ML BAG IVPB ONE (07:17)
[2023-01-25] MEDS ORDERED: Furosemide 20 mg/2 ml IV VIAL IV ONE (07:18)
[2023-01-25] MEDS: Aspirin EC 81 mg TAB.EC (enteric coated) PO SCH (08:07)
[2023-01-25] MEDS: Calcium Citrate 200 mg TAB PO SCH ×2 (08:07→21:53)
[2023-01-25] MEDS: Potassium Chlor 20 meq TAB.ER PO SCH (08:07)
[2023-01-25] MEDS ORDERED: Magnesium Sulfate IV 1GM/100ML 1 GM/100 ML BAG IV ONE (09:17)
[2023-01-25] MEDS ORDERED: Vancomycin Trough Check NOTE FOLLOW UP ONE (10:30)
[2023-01-25 11:42] LABS: C Reactive Protein 217.47 mg/L (<8.01)
[2023-01-25] MEDS: Azithromycin 500 mg/250 ml NS 500 MG/250 ML BAG IVPB SCH (15:16)
[2023-01-25] MEDS: Enoxaparin 40 MG/0.4 ML SYR SUBCUT SCH (15:16)
[2023-01-26] MEDS: Cefepime 2 GM in Dextrose 2 GM/50 ML BAG IV SCH ×2 (01:56→14:16)
[2023-01-26 06:24] LABS: ABS Eosinophils 0.2 10^3/uL (0.0-0.5); ABS Lymphocytes 1.4 10^3/uL (1.0-4.8); ABS Monocytes 0.7 10^3/uL (0.0-1.1); ABS Neutrophils 6.5 10^3/uL (1.5-7.6); ABS Nucleated RBC 0.01 10^3/ul; Eosinophil % 2.3 %; Hemoglobin 13.2 g/dL (13.2-16.3); Lymphocyte % 15.8 %; Mean Corpuscular Hemoglobin 25.6 pg (27-33); Mean Corpuscular Hgb Conc 33.1 g/dL (31-36); Mean Corpuscular Volume 77.5 fL (80-97); Mean Platelet Volume 7.7 fL (7.5-11.2); Nucleated Red Blood Cells % 0.1 %/100WBC (0.0-0.8); Platelet Count 269 10^3/uL (150-450); Red Blood Count 5.16 10^6/uL (4.06-5.63); Red Cell Distribution Width 15.7 % (12-17); White Blood Count 8.9 10^3/uL (3.6-10.2)
[2023-01-26 06:41] LABS: Calcium 8.5 mg/dL (8.6-10.3); Creatinine, Serum 0.58 mg/dL (0.67-1.17); Magnesium 1.8 mg/dL (1.9-2.7); Potassium 3.4 mmol/L (3.5-5.0); eGFR CKD-EPI 101.1 (>60)
[2023-01-26] MEDS ORDERED: Magnesium Sulfate 2 gm BAG 2 GM/50 ML BAG IVPB ONE (07:33)
[2023-01-26] MEDS ORDERED: Furosemide 40 mg/4 ml IV VIAL IV ONE (07:35)
[2023-01-26] MEDS: CMC:FLUTICAS/UMECLI/VILANT 200-62.5-25 MDI (NF) INH SCH (08:09)
[2023-01-26 08:42] LABS: C Reactive Protein 152.51 mg/L (<8.01)
[2023-01-26 10:07] LABS: Erythrocyte Sed Rate 60 mm/Hr (0-19)
[2023-01-26] MEDS: Aspirin EC 81 mg TAB.EC (enteric coated) PO SCH (11:11)
[2023-01-26] MEDS: Potassium Chlor 20 meq TAB.ER PO SCH (11:11)
[2023-01-26] MEDS: Calcium Citrate 200 mg TAB PO SCH (11:11)
[2023-01-26] MEDS: Azithromycin 500 mg/250 ml NS 500 MG/250 ML BAG IVPB SCH (14:52)
[2023-01-26] MEDS: Enoxaparin 40 MG/0.4 ML SYR SUBCUT SCH (14:59)
[2023-01-26 15:04] VITALS: BP 121/73
== END 2023-01-26 17:00 | DRG 871 ==
LOC: ED 09:36 → EDHOLD 11:46 → SUATTDRO 11:46 → MED 14:48
PROVIDERS: ADMIT Internal Medicine; ATTEND Student in an Organized Health Care Education/Training Program

== ENCOUNTER 2023-11-19 18:37 | Observation (INO) ==
[2023-11-19 19:14] LABS: ABS Eosinophils 0.2 10^3/uL (0.0-0.5); ABS Lymphocytes 1.2 10^3/uL (1.0-4.8); ABS Monocytes 0.7 10^3/uL (0.0-1.1); ABS Nucleated RBC 0.01 10^3/ul; Hematocrit 43.9 % (38-53); Hemoglobin 14.6 g/dL (13.2-16.3); Lymphocyte % 14.8 %; Mean Corpuscular Hemoglobin 26.2 pg (27-33); Mean Corpuscular Hgb Conc 33.4 g/dL (31-36); Mean Corpuscular Volume 78.5 fL (80-97); Mean Platelet Volume 7.6 fL (7.5-11.2); Nucleated Red Blood Cells % 0.1 %/100WBC (0.0-0.8); Platelet Count 301 10^3/uL (150-450); Red Blood Count 5.59 10^6/uL (4.06-5.63); Red Cell Distribution Width 16.5 % (12-17); White Blood Count 8.1 10^3/uL (3.6-10.2)
[2023-11-19 19:23] LABS: Activated Partial Thrombo Time 31.7 seconds (26.0-38.0); INR 0.96 (0.85-1.14)
[2023-11-19] MEDS: Iodixanol (CONTRAST) 320 MG/ML 100 ML SDV IV ONE (19:25)
[2023-11-19 19:29] LABS: Albumin 4.3 g/dL (3.2-5.2); Albumin/Globulin Ratio 1.4 (1-3); Calcium 9.4 mg/dL (8.6-10.3); Creatinine, Serum 1.02 mg/dL (0.67-1.17); Globulin 3.1 g/dL (2-4); Indirect Bilirubin 0.2 mg/dL (0.3-1.0); Potassium 3.9 mmol/L (3.5-5.0); Total Bilirubin 0.2 mg/dL (0.2-1.0); Total Protein 7.4 g/dL (6.4-8.9); eGFR CKD-EPI 75.7 (>60)
[2023-11-19 22:09] LABS: Urine Appearance Clear; Urine Bacteria Absent /HPF (Absent); Urine Bilirubin Negative (Negative); Urine Blood Negative (Negative); Urine Color Light-Yellow; Urine Glucose Negative (Negative); Urine Ketones Negative (Negative); Urine Nitrite 1+ (Negative); Urine Protein Trace (Negative); Urine Red Blood Cell 1+(3-5/hpf) /HPF (0-Trace); Urine Specific Gravity >1.050 (1.002-1.030); Urine Urobilinogen Negative (Negative); Urine White Blood Cell Trace(0-5/hpf) /HPF (0-Trace); Urine pH 5.5 (5.0-8.0)
[2023-11-19] MEDS ORDERED: Albuterol HFA INHALER 8 gm MDI INH PRN (23:50)
[2023-11-20] MEDS ORDERED: Sulfur Hexaflouride MICROSPHR 25 MG VIAL ONE (07:39)
[2023-11-20 08:02] LABS: Calcium 8.6 mg/dL (8.6-10.3); Creatinine, Serum 0.67 mg/dL (0.67-1.17); Potassium 3.9 mmol/L (3.5-5.0); eGFR CKD-EPI 96.2 (>60)
[2023-11-20] MEDS: FLUTICAS/UMECLI/VILANT 200-62.5-25 MDI (NF) INH SCH (08:32)
[2023-11-20] MEDS: Potassium Chlor 20 meq TAB.ER PO SCH (08:48)
[2023-11-20 13:26] LABS: Uric Acid 4.8 mg/dL (4.4-7.6)
[2023-11-20] MEDS: Enoxaparin 40 MG/0.4 ML SYR SUBCUT SCH (19:26)
[2023-11-21 07:06] LABS: ABS Eosinophils 0.2 10^3/uL (0.0-0.5); ABS Lymphocytes 2.1 10^3/uL (1.0-4.8); ABS Monocytes 0.6 10^3/uL (0.0-1.1); ABS Neutrophils 4.2 10^3/uL (1.5-7.6); Eosinophil % 3.3 %; Hematocrit 43.8 % (38-53); Hemoglobin 14.2 g/dL (13.2-16.3); Lymphocyte % 29.6 %; Mean Corpuscular Hemoglobin 25.4 pg (27-33); Mean Corpuscular Hgb Conc 32.5 g/dL (31-36); Mean Corpuscular Volume 78.1 fL (80-97); Mean Platelet Volume 7.3 fL (7.5-11.2); Nucleated Red Blood Cells % 0.1 %/100WBC (0.0-0.8); Platelet Count 273 10^3/uL (150-450); Red Blood Count 5.61 10^6/uL (4.06-5.63); Red Cell Distribution Width 16.3 % (12-17); White Blood Count 7.1 10^3/uL (3.6-10.2)
[2023-11-21 07:29] LABS: Anion Gap 10 mmol/L (2-16); Blood Urea Nitrogen 11 mg/dL (6-24); CO2 Carbon Dioxide 27 mmol/L (22-32); Calcium 9.1 mg/dL (8.6-10.3); Chloride 102 mmol/L (101-111); Creatinine, Serum 0.65 mg/dL (0.67-1.17); Glucose 90 mg/dL (70-100); Sodium 139 mmol/L (135-145)
[2023-11-21] MEDS: Sulfur Hexaflouride MICROSPHR 25 MG VIAL IV PRN (11:30)
[2023-11-23 06:19] LABS: ABS Eosinophils 0.2 10^3/uL (0.0-0.5); ABS Lymphocytes 2.1 10^3/uL (1.0-4.8); ABS Monocytes 0.7 10^3/uL (0.0-1.1); ABS Neutrophils 4.2 10^3/uL (1.5-7.6); ABS Nucleated RBC 0.01 10^3/ul; Eosinophil % 3.2 %; Hematocrit 44.7 % (38-53); Hemoglobin 14.4 g/dL (13.2-16.3); Lymphocyte % 28.8 %; Mean Corpuscular Hemoglobin 25.3 pg (27-33); Mean Corpuscular Hgb Conc 32.2 g/dL (31-36); Mean Corpuscular Volume 78.7 fL (80-97); Mean Platelet Volume 7.7 fL (7.5-11.2); Nucleated Red Blood Cells % 0.1 %/100WBC (0.0-0.8); Platelet Count 309 10^3/uL (150-450); Red Blood Count 5.68 10^6/uL (4.06-5.63); Red Cell Distribution Width 16.2 % (12-17); White Blood Count 7.2 10^3/uL (3.6-10.2)
[2023-11-23 07:04] LABS: Calcium 9.1 mg/dL (8.6-10.3); Creatinine, Serum 0.89 mg/dL (0.67-1.17); Potassium 4.1 mmol/L (3.5-5.0); eGFR CKD-EPI 88.3 (>60)
[2023-11-23 13:53] VITALS: BP 119/80
== END 2023-11-23 15:15 ==
LOC: ED 18:37 → EDHOLD 18:37 → MEDTELE 23:00 → SUATTDRO 23:10 → MEDTELE 23:11
PROVIDERS: ADMIT Internal Medicine; ATTEND Student in an Organized Health Care Education/Training Program